=== PATIENT | male | born 1960 | race Caucasian/White ===

== ENCOUNTER → 2017-06-10 11:17 | Outpatient (CLI) | payer OTHER, SELFPAY ==
[2017-06-10 12:43] LABS: Absolute Lymphocyte Count 2.11 X10^3/ul (0.83-4.51); Absolute Neutrophil Count 5.2 X10^3/uL (2.0-7.7); Basophil# 0.04 X10^3/uL; Basophil% 0.5 % (0-1); Eosinophil# 0.17 X10^3/uL; Hematocrit 41.1 % (40-54); Hemoglobin 13.4 g/dl (13.0-16.5); Lymphocyte # 2.11 X10^3/ul (4.0); Lymphocyte % 25.1 % (19-41); Mean Corp Hgb Conc 32.6 g/gl (32-36); Mean Corpuscular Hgb 30.3 pg (27.0-32.0); Mean Platelet Vol. 9.9 fl (6.2-12.0); Monocyte# 0.79 X10^3/uL; Monocyte% 9.4 % (0-10); Neutrophil # 5.22 X10^3/uL (2.7-7.7); Neutrophil % 61.9 % (47-70); Platelet Count 284 K/mm3 (150-450); RBC Distribution Width CV 13.7 % (11.6-14.6); Red Blood Count 4.42 M/mm3 (4.6-6.2); White Blood Count 8.4 K/mm3 (4.4-11.0)
[2017-06-10 12:45] LABS: POSITIVE COUNT NO; POSITIVE DIFFERENTIAL NO; POSITIVE MORPHOLOGY NO
[2017-06-10 13:34] LABS: AST(SGOT) 21 U/L (15-37); Alanine Aminotransfer ALT/SGPT 47 U/L (16-61); Albumin, Serum 3.8 g/dL (3.2-5.0); Alkaline Phosphatase 138 U/L (45-117); Globulin 3.7 g/dL (2.2-4.2); Protein, Total 7.5 g/dL (6.4-8.2)
[2017-06-13 09:55] LABS: QNTFERON TB Ag Minus Nil Value 0.01 IU/mL (.); QNTFERON TB Ag Value 0.03 IU/mL (.); QNTFERON TB Mitogen Value > 10.00 IU/mL (.); QNTFERON TB Nil Value 0.02 IU/mL (.)
[2017-06-13 15:49] LABS: QNTIFERON TB Gold Negative (Negative)
== END ==
PROVIDERS: Family Provider Internal Medicine; PCP Internal Medicine; Visit Provider Dermatology
DX: Z79.899 Other long term (current) drug therapy (principal); L40.3 Pustulosis palmaris et plantaris
CPT/HCPCS: 36415; 80076; 85025; 86480

== ENCOUNTER → 2017-06-22 12:39 | Outpatient (CLI) | payer OTHER, SELFPAY ==
--- NOTE | 2017-06-22 12:42 | RAD_ITS ---
STUDY: X-RAY - RIGHT KNEE REASON FOR EXAM: Male, 57 years old. Postop TECHNIQUE: 4 view(s) of the knee. Weight-bearing COMPARISON: 05/12/2017 FINDINGS: Normal visualized distal femur. Normal visualized proximal tibia and fibula. Normal proximal tibiofibular articulation. Status post total knee arthroplasty in anatomic alignment with maintained hardware, normal bony interface. Stable spurring along the femoral and tibial articular surface. Small effusion. Mild anterior knee edema. Resorption of prior subcutaneous air. RAD/Knee 4 or More Views IMPRESSION: Total knee arthroplasty in anatomic alignment. Mild effusion. Electronically Signed: Gertrude Christy MD at 2:29 EST , Service support ,
== END ==
PROVIDERS: Family Provider Internal Medicine; PCP Internal Medicine; Visit Provider Orthopaedic Surgery
DX: M25.561 Pain in right knee (principal); Z96.651 Presence of right artificial knee joint
CPT/HCPCS: 73564

== ENCOUNTER → 2017-07-08 11:30 | Outpatient (CLI) | payer OTHER, SELFPAY ==
[2017-07-08 14:22] LABS: T4 Free Direct 1.23 ng/dL (0.76-1.46); Thyroid Stim Hormone (TSH) 0.32 uIU/mL (0.358-3.74)
== END ==
PROVIDERS: Family Provider Internal Medicine; PCP Internal Medicine; Visit Provider Nurse Practitioner Family
DX: E03.9 Hypothyroidism, unspecified (principal)
CPT/HCPCS: 36415; 84439; 84443

== ENCOUNTER → 2017-07-13 13:25 | Outpatient (CLI) | payer OTHER, SELFPAY ==
[2017-07-13 15:52] LABS: T4 Free Direct 1.34 ng/dL (0.76-1.46); Thyroid Stim Hormone (TSH) 0.41 uIU/mL (0.358-3.74)
== END ==
PROVIDERS: Family Provider Internal Medicine; PCP Internal Medicine; Visit Provider Nurse Practitioner Family
DX: E03.9 Hypothyroidism, unspecified (principal)
CPT/HCPCS: 36415; 84439; 84443

== ENCOUNTER 2017-07-24 14:30 | Outpatient (RCR) | payer OTHER, SELFPAY ==
--- NOTE | 2017-05-22 12:26 | HP.PTEVAL_ITS ---
Patient's Visit Information ANGY CARSON is a 57 year old M referred to Physical Therapy by Link Johnson DO DR.MTGARRICK with a diagnosis of S/P RTKR 05/12/17. Date of Evaluation: 05/22/17 Physical Therapist: Cuca Urrutia - Visit Plan Frequency: 2-3x /Week Duration: 4-6 Weeks Plan: *PSORIATIC ARTHRITIS*. REHAB FOR RIGHT TKR 05/12/[address] JOHNSON. *NO RESISTED LEG EXTENSION MACHINES AT ANY POINT IN REHAB. ?Soft tissue treatments and gentle mobilization to the posterior musculature, patella, and incisions to avoid flexion or patella contracture. ALSO FOCUS ON EDEMA CONTROL. - Subjective Subjective: DX: S/P RIGHT TKR 05/12/17. 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 Disability: NO. Present symptoms: THE WHOLE KNEE. RIGHT PROXIMAL LATERAL THIGH. Present since: YEARS. Pain Scale: WORST 8/10, LEAST 1/10. Currently: 08/04. Commenced as a result of: 1979 FOOTBALL INJURY. 1980 BASKETBALL INJURY. REPEAT INJURIES AND ARTHRITIS SINCE. Symptoms at onset: RIGHT KNEE. Worse: SITTING AND BEING STILL MAKES IT STIFF. INCREASED PAIN IN THE MORNINGS. Better : FEELS BETTER TO MOVE. Disturbed sleep: YES. Previous history/Previous treatment: AT LEAST TWO SURGERIES AND FLUID DRAINED PRIOR TO TKR. Gait: INDEP GAIT WITH FWW SHORT DISTANCES - GETS OUT OF BREATH. Accidents: NO. Unexplained weight loss: NO. Imaging: PRIOR TO SURGERY. PMH: HYPOTHYROIDISM , CELIAC DZ, PSORIATIC ARTHRITIS. OTHER: QUESTIONED PATIENT ABOUT SOB. STATES HE STARTED NOTICING IT IN THE HOSPITAL AND IT HAS NEVER BEEN THIS BAD BEFORE. THINKS OVER TIME IT MIGHT BE GETTING A LITTLE BETTER. STATES IT ISN'T ENOUGH TO CONCERN HIM. STATES HE DOESN'T KNOW IF DOCTOR IS AWARE OF SOB OR NOT. REPORTS THAT HE HAD A TOUGH TIME AT THE HOSPITAL. IN THE HOSPITAL/REHAB ABOUT 5 DAYS. HAD TO DRAW 50CC'S OF BLOOD OUT. STATES HE WASN'T REALLY ABLE TO TOLERATE REHAB. WAS GIVEN HEP SHEET AND CPM. STATES HE IS TRYING TO DO HEEL SLIDES AND USING ELASTIC BAND TO HELP BUT THAT IS ABOUT IT. - Objective THIS PATIENT AMBULATES INDEP'LY INTO PT LIMPING ON THE RIGHT LE WITH A BENT KNEE. HE IS ABLE TO AMBULATE >300 FEET X 2. NO OBVIOUS SOB BUT PATIENT REPORTS INCREASED SOB OVER-ALL SINCE SURGERY. INDEP TRANSFERS SIT TO STAND AND REVERSE, SIT TO SUPINE AND REVERSE WITHOUT UE ASSISTING LEG. INCISION LOOKS TO BE HEALING WELL WITHOUT ANY SIGNS OF OPEN AREAS/DRAINAGE OR EXTREMEM INCREASED TENDERNESS. THERE IS A LITTLE REDNESS AROUND THE INCISION AND INTO THE LEG. STRENGTH: LLE IS WFL, RIGHT LE HIP FLEX 3+/5, KNEE EXT 2/5, KNEE FLEX 2+/5, ANKLE DORSIFLEX 5/5. RIGHT KNEE CIRCUMFERENCE MEASUREMENTS: ANKLE - 12, DISTAL INCISION 16.25, MID KNEE 19, PROX INCISION 19.75. RIGHT KNEE ROM IN SUPINE WITH A HEEL SLIDE = -40 DEG EXT TO 80 DEG FLEX. PATIENT HAS DECREASED HEP KNOWLEDGE. HE HAS NOT BEEN DOING QUAD SETS. SEE TREATMENT BELOW. PATIENT IS PLEASANT AND COOPERATIVE TO WORK WITH. - Goals Goal 1:: DECREASE C/O RIGHT KNEE PAIN Goal Time Frame: 4-6 Weeks Goal 2:: IMPROVE STANDING, WALKING, ADL AND WORK FUNCTION Goal Time Frame: 4-6 Weeks Goal 3:: INCREASE FUNCTIONAL ROM OF RIGHT LE Goal Time Frame: 4-6 Weeks Goal 4:: INCREASE FUNCTIONAL STRENGTH OF RIGHT LE Goal Time Frame: 4-6 Weeks Goal 5:: INDEP AND SAFE GAIT ON ALL SURFACES WITH LEAST ASSISTIVE DEVICE. Goal Time Frame: 4-6 Weeks Goal 6:: INDEP HEP Goal Time Frame: 4-6 Weeks - Rehabilitation Potential Rehabilitation Potential: Good - Anticipated Interventions Patient/Client Instruction: Educate patient on: Condition, Plan of Care, Risk Factors, Benefits of Fitness Program For the Purpose of:: To improve self management Therapeutic Exercise to Include: Strength training, Flexibilty training, Gait and locomotor training, Passive ROM, Active ROM Comment: *PSORIATIC ARTHRITIS* For the Purpose of:: To decrease pain, To increase ROM, To improve muscle performance and motor function, To improve gait and locomotor functions Cryotherapy (ice pack, ice massage): Yes For the Purpose of:: To decrease pain, To decrease swelling/inflammation Thank you for the opportunity to evaluate your patient. For Medicare and Medicare HMO plans, please review the plan of care and approve it. It will need to be FAXED BACK to us at [phone] for Medicare purposes. Please let me know if there are questions or concerns regarding this plan of care. Physician Signature: Date:
--- NOTE | 2017-06-17 18:14 | HP.PTREVAL_ITS ---
Link Johnson DO, It has been my pleasure to treat ANGY CARSON over the last 10 visits for S/P RTKR 05/12/17. Please see the progress note below for an update on the physical therapy plan of care! Subjective: PATIENT REPORTS HE REALLY ISN'T HAVING PAIN JUST STIFFNESS. PATIENT REPORTS HE FEELS HE IS DOING REALLY GOOD. HE STATES HE REALLY DOESN'T FEEL LIKE HE NEEDS MORE PT BECAUSE OF HOW MUCH WE HAVE TAUGHT HIM. DOING HOME EX'S AND GOING TO THE ALT WHEN HE DOESN'T HAVE PT. Objective/Function: RIGHT KNEE ROM IN SUPINE WITH A HEEL SLIDE = -19 DEG EXT TO 100 DEG FLEX. RECOMMEND CONTINUED PT. Plan Plan: CONT PER POC BUT DECREASING TO 2 X'S A WEEK FOR 4 MORE WEEKS TO PROGRESS RIGHT LE ROM AND STRENGTHEING. PATIENT AGREEABLE WITH RECOMMENDATION. Goals Goal 1:: DECREASE C/O RIGHT KNEE PAIN Goal Time Frame: 4-6 Weeks Goal 2:: IMPROVE STANDING, WALKING, ADL AND WORK FUNCTION Goal Time Frame: 4-6 Weeks Goal Progress: Goal Met Goal 3:: INCREASE FUNCTIONAL ROM OF RIGHT LE Goal Time Frame: 4-6 Weeks Goal 4:: INCREASE FUNCTIONAL STRENGTH OF RIGHT LE Goal Time Frame: 4-6 Weeks Goal 5:: INDEP AND SAFE GAIT ON ALL SURFACES WITH LEAST ASSISTIVE DEVICE. Goal Time Frame: 4-6 Weeks Goal 6:: INDEP HEP Goal Time Frame: 4-6 Weeks Anticipated Interventions Patient/Client Instruction: Educate patient on: Condition, Plan of Care, Risk Factors, Benefits of Fitness Program For the Purpose of:: To improve self management Therapeutic Exercise to Include: Strength training, Flexibilty training, Gait and locomotor training, Passive ROM, Active ROM Comment: *PSORIATIC ARTHRITIS* For the Purpose of:: To decrease pain, To increase ROM, To improve muscle performance and motor function, To improve gait and locomotor functions Cryotherapy (ice pack, ice massage): Yes Vasopneumatic device: Yes For the Purpose of:: To decrease pain, To decrease swelling/inflammation Please do not hesitate to contact me at [phone] by phone or Fax: if you have questions or concerns regarding this new plan of care! Sincerely, Cuca Urrutia
--- NOTE | 2017-07-24 17:03 | HP.PTDCSUM_ITS ---
HP - PT D/C Summary It has been my pleasure to treat ANGY CARSON under orders from Link Johnson DO, MTGARRICK for the diagnosis of S/P RTKR 05/12/17 for a total of 18 visit (s). Discharge Date: Please see the following information for a summary of their discharge status. - Subjective Subjective: PATIENT REPORTS HE DOESN'T DO HIS EX'S MUCH HE SHOULD. STATES HE HAS BEEN BACK TO WORK ABOUT 3 WEEKS AND HAS BACKED OFF SOME OF THE EX' S AT THE [facility] TOO. STATES HE CAN CONTINUE ON HIS OWN WITH WHAT WE HAVE TAUGHT HIM BUT HE IS GLAD HE CONTNUED WHEN WE RECOMMENDED IT THE LAST TIME. - Pain right knee Pain Intensity (Out of 10): 0 - Overall Improvement % Improvement: 90 - Objective Objective/Function: -8 DEG RIGHT KNEE EXT TO 108 DEG FLEX RIGHT KNEE IN SUPINE WITH A HEEL SLIDE. - Goals Goal 1:: DECREASE C/O RIGHT KNEE PAIN Goal Progress: Goal Met Goal 2:: IMPROVE STANDING, WALKING, ADL AND WORK FUNCTION Goal Progress: Goal Met Goal 3:: INCREASE FUNCTIONAL ROM OF RIGHT LE Goal Progress: Goal Met Goal 4:: INCREASE FUNCTIONAL STRENGTH OF RIGHT LE Goal Progress: Goal Met Goal 5:: INDEP AND SAFE GAIT ON ALL SURFACES WITH LEAST ASSISTIVE DEVICE. Goal Progress: Goal Met Goal 6:: INDEP HEP Goal Progress: Goal Met - Plan Plan: D/C TO INDEP EX AT PATIENTS REQUEST. RECOMMEND CONTINUED PT IF PATIENT HAS NOT CONTINUED TO PROGRESS WITH ROM BY THE TIME HE RECHECKS WITH DR. JOHNSON IN A FEW WEEKS. - D/C Information If there are questions or concerns regarding this patient's physical therapy, please feel free to call me at [phone]. Thank you for the referral of this patient. Sincerely, Cuca Urrutia
== END 2017-07-24 19:00 | disposition home or self-care (01) ==
LOC: PT 14:30
PROVIDERS: Family Provider Internal Medicine; PCP Internal Medicine; Visit Provider Orthopaedic Surgery
DX: Z98.890 Other specified postprocedural states (principal)
CPT/HCPCS: 97110; 97162; 97530

== ENCOUNTER 2017-08-18 07:29 | Day surgery (SDC) | payer OTHER, SELFPAY ==
--- NOTE | 2017-08-18 07:01 | PCM.DC.ORTHO ---
Discharge Activity: Return to Normal Activity, May not drive while taking narcotic pain medications., May Shower May resume sexual activity in: No Restrictions Ice area for (Minutes): 20 Weight Bearing Status: Weight bearing as tolerated Call your doctor if your incision/area has: Continuous Slow Oozing, Sudden Increased Bleeding, Increased Pain/ Swelling, Increased Redness, Foul Smelling Discharge Call your doctor if you observe: Fever of 101 or Higher, Coldness, Increased Pain, Numbness or Tingling, Change in Color, Calf discomfort Cleanse incision/area with: Soap & Water Allergies/Adverse Reactions: Allergies No Known Allergies Allergy (Verified 08/12/17 14:57) Medications to take at Discharge Levothyroxine [Synthroid] 200 mcg PO DAILY 04/21/17 Escitalopram Oxalate [Lexapro] 10 mg PO DAILY 05/05/17 Fluticasone 0.05% [Flonase Nasal [place]] 1 spray NASAL DAILY 05/05/17 ixekizumab 80 mg/mL subcutaneous auto-injector 80 mg SC Q4W 07/07/17 avanafil 100 mg tablet 100 mg PO QDAY PRN #7 tab 07/09/17 Docusate Sodium [Colace] 100 mg PO BID PRN PRN #10 cap 08/18/17 Hydrocodone Bitart/Apap 5-325 [[place] 5/325] 1 - 2 tablet PO Q6H PRN PRN #30 tablet 08/18/17 MethylPREDNISolone DosePak [Medrol DosePak] 4 mg PO UD #1 box 08/18/17 proMETHazine tablet [Phenergan] 25 mg PO Q4H PRN PRN #10 tab 08/18/17 The following prescriptions were given: proMETHazine tablet [Phenergan] 25 mg PO Q4H PRN PRN #10 tab PRN Reason: Nausea Hydrocodone Bitart/Apap 5-325 [[place] 5/325] 1 - 2 tablet PO Q6H PRN PRN #30 tablet PRN Reason: Pain Docusate Sodium [Colace] 100 mg PO BID PRN PRN #10 cap PRN Reason: Constipation MethylPREDNISolone DosePak [Medrol DosePak] 4 mg PO UD #1 box Primary Care Physician: Neo Tarango MD [Primary Care Provider] - Please Follow Up With: Link Johnson DO When: call [facility] for appt for 2 weeks Proposed Discharge Date: 08/18/17
[2017-08-18 07:52] VITALS: BP 123/74; PULSE 77; RESP 16; TEMP 37.3; O2SAT 100; BMI 33.4
[2017-08-18] MEDS: oxyCODONE HCl Cr 10 MG Tablet PO (07:59)
--- NOTE | 2017-08-18 09:16 | OP.PN_ITS ---
Immediate Post-Op Note Date of Procedure: 08/18/17 Primary Surgeon/Physician: Link Johnson, hand tennis ball coverer: NONE Pre-Operative Diagnosis: Right knee stiffness status post total knee arthroplasty Post-Operative Diagnosis: Same as above Surgery/Procedure Performed:: Right knee manipulation under anesthesia Description of Surgical Findings:: See dictation Estimated Blood Loss: 0 Specimen's removed: None Drains: None ASA Class: ASA2 Mod Systematic Disease - Admit VTE Documentation VTE Present on Admission: No VTE Mechan Device Prophylaxis: SCD's, Knee High ARCHIE Hose VTE Pharm Prophylaxis ordered?: No Reason prophylaxis not ordered:: Treatment Not Indicated
--- NOTE | 2017-08-18 09:24 | PCM.OPRPT ---
Report of Operation Date of Procedure: 08/18/17 Pre-Operative Diagnosis: Right knee stiffness status post total knee arthroplasty Post-Operative Diagnosis: Same as above Surgery/Procedure Performed:: Right knee manipulation under anesthesia Description of Surgical Findings:: 57-year-old male roughly 3 months status post right total knee arthroplasty. Patient was having some difficulty with gaining range of motion it was my recommendation the patient undergo a manipulation under anesthesia. Patient agreed he was counseled and consented for the aforementioned procedure. He is met in the holding area where the right lower extremity was marked and identified by the orthopedic surgeon. Patient was taken to the operating room in satisfactory condition with somewhat to place to identify patient operative procedure and limb. No preoperative antibiotics due to close procedure. He underwent a successful intubation by anesthesia. Initial range of motion on table was 5? short of terminal extension to roughly 90-95?. At that point time a gentle manipulation under anesthesia was undertaken initially in extension with some small adhesion releases moving into full extension and then keeping a short lever arm we gently bent the knee up to roughly 125? of knee flexion perhaps even 130 with obvious release of adhesions. His patella moved through good range of motion did not appear to be overly contracted anteriorly we did try to mobilize at both medial laterally and superior inferior with appropriate tilt. Patient remained ligamentously stable did not feel any obvious deformities concerning for fracture. At that point time the patient was extubated and returned to recovery room. Patient will start outpatient physical therapy again work on aggressive range of motion. He will follow-up with me in 2 weeks. Any major issues please contact me. I was scrubbed and available time during our procedure. We had no drains or complications and no implants purification director: NONE Type of Anesthesia:: General Specimen's removed: None Drains: None Estimated Blood Loss (mL): 0 - Complications None - Admit VTE Documentation VTE Present on Admission: No VTE Mechan Device Prophylaxis: SCD's VTE Pharm Prophylaxis ordered?: No Reason prophylaxis not ordered:: Treatment Not Indicated
[2017-08-18 09:30] VITALS: BP 123/74; BP 125/87; PULSE 69; RESP 18; TEMP 36.3; O2SAT 92
[2017-08-18 09:45] VITALS: BP 112/86; BP 123/74; PULSE 65; RESP 18; O2SAT 92
[2017-08-18 10:00] VITALS: BP 103/59; BP 123/74; PULSE 63; RESP 18; O2SAT 97
[2017-08-18 10:13] VITALS: BP 122/81; BP 123/74; PULSE 59; RESP 18; TEMP 36.3; O2SAT 94
[2017-08-18 10:52] VITALS: BP 123/74
== END 2017-08-18 10:55 | disposition home or self-care (01) ==
LOC: SDC 07:31 → AC 07:31
PROVIDERS: Family Provider Internal Medicine; PCP Internal Medicine; Visit Provider Orthopaedic Surgery
PROC: (CPT 27570; principal; 2017-08-18 09:30)
DX: M25.661 Stiffness of right knee, not elsewhere classified (principal); Z96.651 Presence of right artificial knee joint; R00.0 Tachycardia, unspecified; F32.9 Major depressive disorder, single episode, unspecified; E06.9 Thyroiditis, unspecified; L40.59 Other psoriatic arthropathy; J30.2 Other seasonal allergic rhinitis; K90.0 Celiac disease; Z79.899 Other long term (current) drug therapy; Z87.891 Personal history of nicotine dependence
CPT/HCPCS: 01380; 27570; J7120; J2405

== ENCOUNTER → 2018-01-06 12:00 | Outpatient (CLI) | payer OTHER, SELFPAY ==
[2018-01-06 15:03] LABS: T4 Free Direct 1.02 ng/dL (0.76-1.46); Thyroid Stim Hormone (TSH) 0.61 uIU/mL (0.358-3.74)
== END ==
PROVIDERS: Family Provider Internal Medicine; PCP Internal Medicine; Visit Provider Nurse Practitioner Family
DX: E03.9 Hypothyroidism, unspecified (principal)
CPT/HCPCS: 36415; 84439; 84443

== ENCOUNTER → 2018-03-25 12:43 | Outpatient (CLI) | payer OTHER, SELFPAY ==
[2018-03-24 14:00] VITALS: BMI 34.5
[2018-03-25 14:15] LABS: Anion Gap 7 (5-15); BUN 16 mg/dL (7-18); BUN/Creat Ratio 19.3 RATIO (10-20); Calcium,Total 8.5 mg/dL (8.5-10.1); Chloride 106 mmol/L (98-107); Creatinine, Serum 0.83 mg/dL (0.70-1.30); EST Glomerular Filtration Rate 102 mL/min (>60); Est Glom Filt Rate - Afr Amer 123 mL/min (>60); Glucose 89 mg/dL (74-106); Magnesium 2.1 mg/dL (1.6-2.6); Potassium 4.2 mmol/L (3.5-5.1); Sodium Level 139 mmol/L (136-145)
[2018-03-25 14:25] LABS: Cholesterol 180 mg/dL (200); High Density Lipoprotein 48 mg/dL; Triglycerides 203 mg/dL; Very Low Density Lipoprotein 41 mg/dL (5-40)
--- OUTSIDE RECORDS SUMMARY | 2018-05-20 16:09 | XMS RPT_ITS ---
:1960 Author Organization OHIP Support Name Relationship Address Phone ALLIWILD JARAMILLOYN Unavailable [address] + [place] [address] SMIDA Unavailable [address] + [address] [place] [address] ERICK CARSON Unavailable [address] + [place] [address] SMIDA Unavailable [address] + [address] [place] [address] ERICK CARSON Unavailable [address] + [place] [address] SMIDA Unavailable [address] + [address] [place] [address] SMIDA Unavailable [address] + [address] [place] [address] SMIDA Unavailable [address] + [address] [place] [address] ERICK CARSON Unavailable [address] + [place] [address] SMIDA Unavailable [address] + [address] [place] [address] ERICK CARSON Unavailable [address] + [place] [address] SMIDA Unavailable [address] + [address] [place] [address] ERICK CARSON Unavailable [address] + [place] [address] SMIDA Unavailable [address] + [address] [place] [address] ALLI, ERICK Unavailable [address] + [place] [address] SMIDA Unavailable [address] + [address] [place] [address] ALLI, ERICK Unavailable [address] + [place] [address] SMIDA Unavailable [address] + [address] [place] [address] ALLI, ERICK Unavailable [address] + [place] [address] SMIDA Unavailable [address] + [address] [place] [address] ALLI, ERICK Unavailable [address] + [place] [address] SMIDA Unavailable [address] + [address] [place] [address] ALLI, ERICK Unavailable [address] + [place] [address] SMIDA Unavailable [address] + [address] [place] [address] ALLI, ERICK Unavailable [address] + [place] [address] SMIDA Unavailable [address] + [address] [place] [address] ALLI, ERICK Unavailable [address] + [place] [address] SMIDA Unavailable [address] + [address] [place] [address] ALLI, ERICK Unavailable [address] + [place] [address] SMIDA Unavailable [address] + [address] [place] [address] ALLI, ERICK Unavailable [address] + [place] [address] SMIDA Unavailable [address] + [address] [place] [address] ALLI, ERICK Unavailable [address] + [place] [address] SMIDA Unavailable [address] + [address] [place] [address] ALLI, ERICK Unavailable [address] + [place] [address] SMIDA Unavailable [address] + [address] [place] [address] ALLI, ERICK Unavailable [address] + [place] [address] SMIDA Unavailable [address] + [address] [place] [address] ALLI, ERICK Unavailable [address] + [place] [address] SMIDA Unavailable [address] + [address] [place] [address] ALLI, ERICK Unavailable [address] + [place] [address] SMIDA Unavailable [address] + [address] [place] [address] ALLI, ERICK Unavailable [address] + [place] [address] SMIDA Unavailable [address] + [address] [place] [address] ALLI, ERICK Unavailable [address] + [place] [address] SMIDA Unavailable [address] + [address] [place] [address] ALLI, ERICK Unavailable [address] + [place] [address] SMIDA Unavailable [address] + [address] [place] [address] ALLI, ERICK Unavailable [address] + [place] [address] SMIDA Unavailable [address] + [address] [place] [address] ALLI, ERICK Unavailable [address] + [place] [address] SMIDA Unavailable [address] + [address] [place] [address] ALLI, ERICK Unavailable [address] + [place] [address] SMIDA Unavailable [address] + [address] [place] [address] ALLI, ERICK Unavailable [address] + [place] [address] SMIDA Unavailable [address] + [address] [place] [address] ALLI, ERICK Unavailable [address] + [place] [address] SMIDA Unavailable [address] + [address] [place] [address] ALLI, ERICK Unavailable [address] + [place] [address] SMIDA Unavailable [address] + [address] [place] [address] ALLI, ERICK Unavailable [address] + [place] [address] SMIDA Unavailable [address] + [address] [place] [address] ALLI, ERICK Unavailable [address] + [place] [address] SMIDA Unavailable [address] + [address] [place] [address] ALLI, ERICK Unavailable [address] + [place] [address] SMIDA Unavailable [address] + [address] [place] [address] ALLI, ERICK Unavailable [address] + [place] [address] SMIDA Unavailable [address] + [address] [place] [address] ALLI, ERICK Unavailable [address] + [place] [address] SMIDA Unavailable [address] + [address] [place] [address] Care Team Providers Name Role Phone Oleghe, Efewongbe Attending Unavailable Olee, Efewongbe Referring Unavailable SantosPresleyDublin Attending Unavailable Santos, [place] Referring Unavailable Olee, Efewongbe Primary Care Unavailable Olee, Efewongbe Primary Care Unavailable Rebecca Oconnor Attending Unavailable Link Harrison Attending Unavailable Olee, Efewongbe Referring Unavailable Oleghe, Efewongbe Primary Care Unavailable Link Harrison Attending Unavailable Olee, Efewongbe Primary Care Unavailable Alex, Link Admitting Unavailable Link Harrison Referring Unavailable Olee, Efewongbe Primary Care Unavailable Imamura, Yoichi Consulting Unavailable Sementi, Melissa Attending Unavailable Angel, Cruz Consulting Unavailable Alex, Link Admitting Unavailable Link Harrison Attending Unavailable Olee, Efewongbe Primary Care Unavailable Link Harrison Consulting Unavailable Alex, Link Admitting Unavailable Link Harrison Attending Unavailable Olee, Efewongbe Primary Care Unavailable Link Harrison Consulting Unavailable Alex, Link Admitting Unavailable Link Harrison Attending Unavailable Olee, Efongbe Primary Care Unavailable Link Harrison Consulting Unavailable Alex, Link Admitting Unavailable Olee, Efewongbe Primary Care Unavailable Imamura, Yoichi Consulting Unavailable Paintsil, [place] Attending Unavailable Link Harrison Consulting Unavailable Alex, Link Admitting Unavailable Link Harrison Attending Unavailable Olee, Efewongbe Primary Care Unavailable Imamura, Yoichi Consulting Unavailable Angel, Cruz Consulting Unavailable Sementi, Melissa Consulting Unavailable Alex, Link Admitting Unavailable Sementi, Melissa Attending Unavailable Olee, Efewongbe Primary Care Unavailable Imamura, Yoichi Consulting Unavailable Angel, Cruz Consulting Unavailable Sementi, Melissa Consulting Unavailable Alex, Link Admitting Unavailable Link Harrison Attending Unavailable Olee, Efewongbe Primary Care Unavailable Imamura, Yoichi Consulting Unavailable Angel, Cruz Consulting Unavailable Sementi, Melissa Consulting Unavailable Alex, Link Admitting Unavailable Sementi, Melissa Attending Unavailable Olee, Efewongbe Primary Care Unavailable Imamura, Yoichi Consulting Unavailable Angel, Cruz Consulting Unavailable Sementi, Melissa Consulting Unavailable Alex, Link Admitting Unavailable Link Harrison Attending Unavailable Olee, Efewongbe Primary Care Unavailable Imamura, Yoichi Consulting Unavailable Angel, Cruz Consulting Unavailable Sementi, Melissa Consulting Unavailable Link Harrison Attending Unavailable Olee, Efewongbe Primary Care Unavailable Link Harrison Referring Unavailable Link Harrison Attending Unavailable Oleghe, Efewongbe Referring Unavailable Oleghe, Efewongbe Primary Care Unavailable Aniket Mclaughlin Attending Unavailable Link Harrison Referring Unavailable Francisco Hughes Attending Unavailable Oleghe, Efewongbe Primary Care Unavailable Link Harrison Attending Unavailable Oleghe, Efewongbe Referring Unavailable Oleghe, Efewongbe Primary Care Unavailable Link Harrison Attending Unavailable Link Harrison Referring Unavailable Oleghe, Efewongbe Primary Care Unavailable Jaya Bowman Attending Unavailable Melissa Ordonez Referring Unavailable Denny Trinidad BUTADIENE CONVERTER UTILITY OPERATOR-C Attending Unavailable Oleghe, Efewongbe Referring Unavailable Oleghe, Efewongbe Primary Care Unavailable Denny Trinidad BUTADIENE CONVERTER UTILITY OPERATOR-C Attending Unavailable Oleghe, Efewongbe Primary Care Unavailable Denny Trinidad BUTADIENE CONVERTER UTILITY OPERATOR-Riki Attending Unavailable Denny Trinidad BUTADIENE CONVERTER UTILITY OPERATOR-C Referring Unavailable Oleghe, Efewongbe Primary Care Unavailable Link Harrison Attending Unavailable Oleghe, Efewongbe Referring Unavailable Oleghe, Efewongbe Primary Care Unavailable Link Harrison Attending Unavailable Link Harrison Referring Unavailable Oleghe, Efewongbe Primary Care Unavailable Link Harrison Attending Unavailable Link Harrison Referring Unavailable Oleghe, Efewongbe Primary Care Unavailable Link Harrison Consulting Unavailable Link Harrison Attending Unavailable Oleghe, Efewongbe Referring Unavailable Link Harrison Attending Unavailable Oleghe, Efewongbe Referring Unavailable Oleghe, Efewongbe Primary Care Unavailable Link Harrison Attending Unavailable Oleghe, Efewongbe Referring Unavailable Oleghe, Efewongbe Primary Care Unavailable Denny Trinidad BUTADIENE CONVERTER UTILITY OPERATOR-C Attending Unavailable Denny Trinidad BUTADIENE CONVERTER UTILITY OPERATOR-C Referring Unavailable Oleghe, Efewongbe Primary Care Unavailable Oleghe, Efewongbe Attending Unavailable Oleghe, Efewongbe Referring Unavailable Oleghe, Efewongbe Primary Care Unavailable Colleen Olvera Attending Unavailable Robert Graham Attending Unavailable Oleghe, Efewongbe Referring Unavailable Oleghe, Efewongbe Attending Unavailable Oleghe, Efewongbe Referring Unavailable Oleghe, Efewongbe Primary Care Unavailable PROBLEMS PROBLEMS DATE TYPE CONDITION / CODE ATTENDING STATUS SOURCE 03/25/2018 Unknown E03.9 - Oleghe, Active [place] Hypothyroidism, Efewongbe Community unspecified / Hospital E03.9(ICD-10) Repository 03/24/2018 Unknown I25.119 - Santos, Robert Active [facility] Atherosclerotic heart [facility] coronary artery with Repository unspecified angina pectoris / I25.119(ICD-10) 03/24/2018 Unknown I47.1 - Santos, Robert Active [place] Supraventricular Community tachycardia / Hospital I47.1(ICD-10) Repository 03/24/2018 Unknown I49.3 - Ventricular Santos, [place] Active [place] premature Community depolarization / Hospital I49.3(ICD-10) Repository 03/24/2018 Unknown R00.2 - Palpitations / Santos, Robert Active [place] R00.2(ICD-10) Community Hospital Repository 03/24/2018 Unknown R06.00 - Dyspnea, Santos, [place] Active [facility] unspecified / Community R06.00(ICD-10) Hospital Repository 03/24/2018 Unknown R07.9 - Chest pain, Santos, Robert Active [place] unspecified / Community R07.9(ICD-10) Hospital Repository 08/18/2017 Unknown M25.661 - Stiffness of Link [facility] Active [place] right knee, not Community elsewhere classified / Hospital M25.661(ICD-10) Repository 07/29/2017 Unknown Z98.890 - Other iLnk [place] Active [place] specified Community postprocedural states Hospital / Z98.890(ICD-10) Repository 06/22/2017 Unknown M25.561 - Pain in Link [facility] Active [place] right knee / Community M25.561(ICD-10) Hospital Repository 06/04/2017 Unknown M17.11 - Unilateral Paintsil, [place] Active [facility] primary Community osteoarthritis, right Hospital knee / M17.11(ICD-10) Repository 06/25/2017 Unknown M79.89 - Other CebuJaya smith Active [place] specified soft tissue Community disorders / Hospital M79.89(ICD-10) Repository 04/23/2017 Unknown M25.461 - Effusion, Link [facility] Active [place] right knee / Community M25.461(ICD-10) Hospital Repository 04/23/2017 Unknown M25.462 - Effusion, Link Harrison Active [place] left knee / Community M25.462(ICD-10) Hospital Repository PROCEDURES PROCEDURES No Procedure Records FoundRESULTS RESULTS STRESS REPORT Observed: 04/12/2018 Status: F Source: [place] 5:40 PM [facility] RE[facility]ITORY [facility] Cardiovascular Services [address] [place] [address] MR#: [id number] Acct: [id number] Name: ANGY CARSON Rep #: [id number] : 1960 58 From: Robert Graham MD Primary Care: Neo Tarango MD Status: REG CLI Ordering Dr: Reena: Malcom Lyn Stress Test Report Exercise myocardial perfusion stress test. 58-year-old man with a history of chest pain. Medications Flonase levothyroxine. Stress protocol: Resting EKG demonstrates normal sinus rhythm with a rate of 68 bpm normal intervals are noted resting blood pressure 116/70 mmHg. The patient exercised according to regular Surjit protocol for total duration of 7 minutes completing 1 minute into stage III of the Surjit protocol. The maximum heart rate attained was 171 bpm which was 104% of maximum predicted heart rate the maximum workload was 8.5 metabolic equivalents. The patient maintained sinus rhythm throughout the recording with frequent premature ventricular complexes some in the pattern of quadrigeminy. At rest there were no EKG changes noted and at peak exercise upsloping ST changes only were noted we did not meet the criteria for ischemia. During recovery premature ventricular complexes were noted some in couplets. The resting blood pressure 116/70 with a peak blood pressure 180/80 mmHg. Myocardial perfusion protocol. 14.9 mCi of technetium 99m sestamibi was injected at rest. The patient exercised according to regular Surjit protocol for total duration of 7 minutes. At peak exercise 44.8 mCi of technetium 99m sestamibi was injected stress images were obtained stress and rest images were reconstructed and compared in the short axis vertical long and horizontal long axis. Gated images were also obtained per Perfusion SPECT analysis: Review of the stress images demonstrate fairly uniform uptake of tracer noted in areas of the myocardium. No areas of reversibility are noted suggest ischemia. No previous infarct is noted. Gated SPECT analysis: The gated ejection fraction is noted to be 59%. Conclusion: Normal exercise myocardial fusion stress test at a moderate workload. Frequent unifocal premature ventricular complexes noted. No clinical angina or chest pain noted. Preserved ejection fraction 04/12/18 8780 <Electronically signed by Robert Graham MD> Date Robert Graham MD CC: Robert Graham MD; Neo Tarango MD Date Dictated: 04/12/181736 Date Transcribed: 04/12/181736 Rough Rice Tender: CO Signed ECHO, COMPLETE W/ Observed: 04/12/2018 Status: F Source: [place] CONTRAST 12:16 PM [facility] REPOSITORY [facility] Cardiovascular Services [address] [place] [address] Echo Complete W/ Contrast 04/12/18 0951 MR#: [id number] Acct: [id number] Name: ANGY CARSON Rep #: [id number] : 1960 58 From: Robert Graham MD Attending Dr: Robert Graham MD Status: REG CLI Ordering Dr: Robert Graham MD Date: 04/12/18 Location: [facility] Sex: M C Admitted: Reason For Study: Arrhythmia Procedure This was a 2D Doppler, Color Flow transthoracic echocardiogram. Contrast injection was performed. Exam performed in department. Left Ventricle Normal LV size. Mild concentric left ventricular hypertrophy. The estimated ejection fraction is 50 %. No evidence for diastolic dysfunction. No regional wall motion abnormalities noted. Right Ventricle Normal RV size. Mild global right ventricular systolic dysfunction. Atria The left atrium is mildly enlarged. Normal right atrium. Mitral Valve Normal mitral valve. Tricuspid Valve Normal tricuspid valve. Mild (1+) tricuspid valve insufficiency. Pulmonary artery systolic pressure is 25 mmHg. Aortic Valve Normal aortic valve. Trisinus/trileaflet aortic valve. Pulmonic Valve Normal pulmonic valve. Mild (1+) pulmonic valve insufficiency. Great Vessels Mildly dilated aortic root. The pulmonary artery is normal size. Normal inferior vena cava. Pericardium/Pleural No pericardial effusion. Medication 22 gauge I.V. with prn adaptor inserted into right arm. Diluted definity 3ml given slow IV push to enhance endocardial definition. MMode/2D Measurements AND Calculations LVIDd: 5.3 cm IVSd: 1.3 cm Ao root diam: 4.2 cm LVIDs: 3.7 cm LVPWd: 1.2 cm LA dimension: 3.6 cm RVDd: 3.6 cm FS: 29.9 % LAV(MOD-bp): 79.9 ml LVAd ap4: 37.4 cm2 SV(MOD-sp4): 78.5 ml LAV(MOD-bp) Indexed: 33.8 ml/m2 EDV(MOD-sp4): 132.0 ml LAV(MOD-sp2): 79.4 ml EDV(sp4-el): 134.0 ml LAV(MOD-sp4): 84.6 ml LVAs ap4: 21.1 cm2 ESV(MOD-sp4): 53.5 ml ESV(sp4-el): 53.7 ml EF(MOD-sp4): 59.5 % EF(sp4-el): 59.9 % SV(sp4-el): 80.3 ml LA A4 area: 24.2 cm2 RA A4 area: 20.6 cm2 Time Measurements MV dec time: 0.22 sec Doppler Measurements AND Calculations MV E max ney: 66.0 cm/sec Lat Peak E' Ney: 12.3 cm/sec Med Peak E' Ney: 12.6 cm/sec MV A max ney: 52.4 cm/sec E/E' lat: 5.4 E/E' med: 5.2 MV E/A: 1.3 MV V2 max: 74.5 cm/sec MV P1/2t max ney: 74.5 cm/sec Ao V2 max: 89.3 cm/sec MV max P.2 mmHg MV P1/2t: 105.7 msec Ao max P.2 mmHg MV V2 mean: 40.1 cm/sec MV mean P.75 mmHg MV dec slope: 206.4 cm/sec2 MV V2 VTI: 24.7 cm MVA(P1/2t): 2.1 cm2 LV V1 max: 80.0 cm/sec PA V2 max: 67.3 cm/sec TR max ney: 230.4 cm/sec LV V1 max P.6 mmHg TR max P.2 mmHg Interpretation Summary Normal LV size. Mild concentric left ventricular hypertrophy. The estimated ejection fraction is 50 %. Mildly dilated aortic root. No evidence for diastolic dysfunction. The left atrium is mildly enlarged. Mild (1+) tricuspid valve insufficiency. Compared to prior study, there is no significant change. Ordering Physician: Robert Graham Referring Physician: Neo Tarango Performed By: Cm Morel RCS 04/12/18 1216 Date Robert Graham MD CC: Robert Graham MD; Neo Tarango MD Date Dictated: 04/12/18 0951 Date Transcribed: 04/12/18 1216 Rough Rice Tender: Signed INTERNAL MEDICINE Observed: 04/06/2018 Status: F Source: [place] OFFICE VISIT 4:46 PM [facility] Internal Medicine [address] [place] [address] OFFICE VISIT Date of Service: 04/06/18 MR#: [id number] Acct: [id number] Name: ANGY CAROSN Rep #: [id number] : 1960 Provider: Neo Tarango MD Age/Sex: 58/M Location: [facility] [place] Status: Signed Intake Vital Signs04/06/18 Body Mass Index (BMI) 34.5 04/06/18 Height 6 ft Intake Visit Reasons: 3 MO FU Chief Complaint: follow-up visit Is patient in pain?: No Allergies No Known Allergies Allergy (Verified 03/24/18 14:01) Medications Fluticasone 0.05% [Flonase Nasal [place]] 1 spray NASAL DAILY 05/05/17 [History Confirmed 03/24/18] avanafil 100 mg tablet 100 mg PO QDAY PRN #7 tab 07/09/17 [Rx Confirmed 03/24/18] levothyroxine 200 mcg tablet 200 mcg PO DAILY #90 tab 11/20/17 [Rx Confirmed 03/24/18] escitalopram 10 mg tablet 10 mg PO DAILY #90 tab 03/17/18 [Rx Confirmed 03/24/18] PFSH Medical History PVC (premature ventricular contraction) (Chronic) SVT (supraventricular tachycardia) (Chronic) Anxiety (Chronic) Arthritis (Chronic) Celiac disease (Chronic) Chronic back pain (Chronic) Hypothyroidism (Chronic) Seasonal allergies (Chronic) Thyroid disease (Chronic) Vitamin D deficiency (Chronic) Surgical History History of deviated nasal septum (Resolved) History of knee surgery (Resolved) History of left heart catheterization (Resolved 07/20/09) History of radiofrequency ablation procedure for cardiac arrhythmia (Resolved 08/01/09) History of total right knee replacement (Resolved) s/p mitro valve (Inactive) Social History Smoking Status: Former smoker how long ago did patient quit smokin alcohol intake: current alcohol intake frequency: a few times a month Alcohol type: beer substance use type: does not use what type of physical activity do you participate in: weight training frequency: 3-4 times per week HPI HPI Chief Complaint: follow-up visit Details: ANGY CARSON, is a 58yo M who presents to the office today for follow-up of his chronic medical conditions. He has no acute complaints at this time. Anxiety symptoms stable. Currently on Lexapro which she reports compliance with. Also on 200 mcg of levothyroxine. Her last thyroid function check was within normal. He denies any concerns for over or under correction. He is scheduled for a stress test on Thursday due to intermittent chest pain and irregular heartbeat. ROS Const Constitutional: No weight change, body ache, chills, fatigue, sleep problems, fever(s), change in appetite, snoring, weakness, frequent falls, headache(s) or excessive sweating Eyes Eyes: No change in vision, eye pain, light sensitivity or blurry vision ENT ENT: No headache(s), abnormal hearing, ear pain, tinnitus, nasal congestion, sore throat or neck pain Resp Respiratory: No snoring, cough, shortness of breath or wheezing Cardio Cardiology: No excessive sweating, chest pain with exertion, shortness of breath, dyspnea on exertion, palpitations, orthopnea or lightheadedness Gastro GI: No abdominal pain, change in bowel habits, constipation, diarrhea, vomiting, nausea/dyspepsia or cramping Genitourinary Male: No painful urination, urinary incontinence, urinary frequency, urinary urgency, blood in urine, testicle pain or other Musc Musculoskeletal: No neck pain, abnormal walking, joint pain, back pain, limited range of motion, numbness or tingling Skin Skin: No redness, dry skin, itching, lesions, wounds or rash Neuro Neurology: No weakness, frequent falls, headache(s), abnormal hearing, abnormal walking, numbness, tingling, abnormal speech, dizziness or memory loss Psych Psychiatric: No change in appetite, No memory loss, No anxiety, No depression, No Thoughts of harming yourself/Others Endo Endocrine: No fatigue, excessive sweating, cold intolerance, increased thirst/drinking, heat intolerance, flushing or increased hunger Aller/Imm Allergy/Immunologic: No wheezing, itchy eyes, hives or seasonal allergy symptoms Jose/Lymp Hematologic/Lymphatic: No easy bleeding, easy bruising or enlarged lymph nodes Exam Const General: cooperative, no acute distress Orientation: alert, awake, oriented x3 HENMT Head: atraumatic, normocephalic, normal to inspection Ears: hearing grossly normal bilaterally Resp Effort AND Inspection: normal respiratory effort, able to speak in complete sentences Auscultation: Bilateral: Clear to Auscultation Cardio Rate: regular rate Rhythm: regular rhythm Heart Sounds: S1 normal, S2 normal GI Inspection: obesity Palpation: soft, no hepatosplenomegaly Neuro General: alert, awake, oriented x3, moves all extremities, CN's II-XI intact bilaterally Extrem General: no clubbing, cyanosis or edema Psych Appearance: grossly normal Mental Status: mental status grossly normal Mood: congruent mood Affect: normal affect Assessment AND Plan 1. Anxiety F41.9 Plan Stable. Continue current medication. 2. Hypothyroidism E03.9 Plan Last thyroid function checked within normal. No concerns for over or under correction. Continue current medication. 3. Celiac disease K90.0 Plan Stable. Follows up routinely with Dr. Edwards and is due for colonoscopy. He was advised to schedule this. 4. Chest pain R07.9 Plan Intermittent. Associated with intermittent palpitations/feeling of irregular heartbeat. EKG done per patient was without any significant concerns. Scheduled for stress test on Thursday. Will follow. This note was generated with [employer] dictation software. It may contain incorrect words, spelling, and punctuation that were not noted in checking the note before signing. Coding Level of Care Code Off vis,est,level 3 Diagnoses Anxiety F41.9 Hypothyroidism E03.9 Celiac disease K90.0 Chest pain R07.9 04/06/18 1646 <Electronically signed by Neo Tarango MD> Date Neo Tarango MD [facility] Signature: Date (if applicable) CC: CARDIOLOGY VISIT Observed: 03/30/2018 Status: F Source: [place] REPORT 10:14 AM [facility] RE[facility] [address] [place] [address] OFFICE VISIT Date of Service: 03/24/18 MR#: [id number] Acct: [id number] Name: ANGY CARSON Rep #: [id number] : 1960 Provider: Robert Graham MD Age/Sex: 58/M Location: [facility] [place] Status: Signed HPI HPI Chief Complaint: Initial visit Details: ANGY CARSON, is a 58 M who presents to the office today for an initial visit. He is a gentleman with a history of no obstructive coronary artery disease who had presented over 8 years ago with chest discomfort supraventricular tachyarrhythmia and elevated cardiac enzymes. He underwent a cardiac catheterization at that time with demonstrated normal left main coronary artery, and left anterior descending artery with a 20% stenosis in the mid left anterior descending artery consistent with myocardial bridging. The circumflex artery had a 20-30% stenosis in the right coronary artery was codominant with no significant stenosis. Medical therapy was recommended. He had had a supraventricular tachyarrhythmia and therefore underwent an EP study for recurrent symptomatic narrow complex tachycardia. Dual AV hardik physiology was noted but no accessory pathway was demonstrated. There was successful catheter ablation of the slow AV hardik pathway using cryoablation. Since then he is done well until recently when he started experiencing some chest discomfort not necessarily with exertion as well as palpitations. He presented for follow-up evaluation. His physical exam today demonstrates clear lung ko regular rate and rhythm and no pedal edema. His electrocardiogram demonstrates a normal sinus rhythm with a rate of 84 bpm. Intake Vital Signs03/24/18 Height 6 ft Intake Visit Reasons: PCP ref'd for on/off SOB, chest/throat tightness Allergies No Known Allergies Allergy (Verified 03/24/18 14:01) Medications Fluticasone 0.05% [Flonase Nasal [place]] 1 spray NASAL DAILY 05/05/17 [History Confirmed 03/24/18] avanafil 100 mg tablet 100 mg PO QDAY PRN #7 tab 07/09/17 [Rx Confirmed 03/24/18] levothyroxine 200 mcg tablet 200 mcg PO DAILY #90 tab 11/20/17 [Rx Confirmed 03/24/18] escitalopram 10 mg tablet 10 mg PO DAILY #90 tab 03/17/18 [Rx Confirmed 03/24/18] [facility] Medical History PVC (premature ventricular contraction) (Chronic) SVT (supraventricular tachycardia) (Chronic) Anxiety (Chronic) Celiac disease (Chronic) Chronic back pain (Chronic) Hypothyroidism (Chronic) Seasonal allergies (Chronic) Vitamin D deficiency (Chronic) Arthritis (Chronic) Thyroid disease (Chronic) Surgical History History of left heart catheterization (Resolved 07/20/09) History of radiofrequency ablation procedure for cardiac arrhythmia (Resolved 08/01/09) History of deviated nasal septum (Resolved) History of knee surgery (Resolved) History of total right knee replacement (Resolved) s/p mitro valve (Inactive) Social History Smoking Status: Former smoker how long ago did patient quit smokin alcohol intake: current alcohol intake frequency: a few times a month Alcohol type: beer substance use type: does not use what type of physical activity do you participate in: weight training frequency: 3-4 times per week ROS Const Const: Negative for fatigue, weakness, difficulty sleeping, frequent falls, excessive sweating or headache(s) Eyes Eyes: Negative for loss of peripheral vision, transient loss of vision, blurry vision, tunnel vision or double vision ENT ENT: Negative for headache(s), dizziness, Nosebleed/epistaxis or balance problems Cardio Chest Pain: Yes Character: dull Onset: at rest Location: mid sternal, left chest Duration: minutes Palpitations: No Edema: None Muscle aches with walking: None Resp Respiratory: Positive for SOB with activity (Increase SOB with routine activity); negative for SOB at rest, SOB orthopnea\SOB lying down, paroxysmal nocturnal dyspnea or Cough GI GI: Negative nausea, heartburn, black,tarry stools or vomiting : Negative for hematuria Musc Musc: Negative for balance problems, muscle aches/ myalgia, muscle weakness or joint pain Skin Skin: Negative non-healing lesions, unusual bruising or rash Neuro Neuro: Negative for weakness, frequent falls, headache(s), blurry vision, double vision, dizziness, lightheadedness, orthostatic symptoms, near syncope, syncope or lack of coordination Jose Hematologic/Lymphatic: Negative for easy bruising or easy bleeding Endo Endo: Negative for fatigue, excessive sweating or increased thirst/drinking Psych Psych: Negative for anxiety or depression Allergy Allergy/Immunology: Negative for hives, Negative for rash Cardiology Exam Const Appearance: cooperative, healthy appearing, well developed, well groomed and no acute distress Nutritional Appearance: well nourished and average body habitus Orientation: alert, awake and oriented x3 Head Head: normal to inspection, normocephalic and atraumatic Ears: hearing grossly normal bilaterally and external ears normal Nose: external nose normal, nasal mucous membranes and turbinates normal, nares normal, septum normal, no nasal discharge Face and Sinus: face symmetric Mouth: oral mucosae normal, tongue normal, oropharynx normal and moist mucous membranes Teeth and gingiva: dentition normal Throat: posterior oropharynx normal, tonsils normal and uvula midline Eyes General: appearance normal, both eyes and all related structures Eyelids: eyelids normal Conjunctivae: conjunctivae normal Pupils: PERRL, normal by confrontation and accommodation normal EOM: EOM intact bilaterally Neck Neck: normal visual inspection, trachea midline and no JVD JVD: +5 Carotids: normal carotid upstroke and bounding pulses Chest Chest inspection: normal inspection of the chest, symmetric chest movement and normal respiratory effort Auscultation: Bilateral: Clear to Auscultation Cardio Palpation: normal PMI Rate: regular rate Rhythm: regular rhythm Heart sounds: S1 normal, S2 normal and normal, physiologic split S2; negative rub, gallop or murmur GI GI: normal to inspection, soft, no hepatosplenomegaly and bowel sounds present Neuro General: alert, awake, oriented x3, no focal sensory deficit, gait normal and moves all extremities Skin Skin: no rashes or lesions noted Extremities Pulses: Normal: Right Femoral Pulse, Left Femoral Pulse, Right Dorsalis Pedis Pulse, Left Dorsalis Pedis Pulse, Right Posterior Tibial Pulse, Left Posterior Tibial Pulse, Right Radial Pulse, Left Radial Pulse Lower Extremity Edema: None: Bilateral Musculoskel Musculoskeletal: No joint tenderness Psych Psychological: normal affect Assessment AND Plan 1. Chest pain R07.9 Plan He does have a history of chest discomfort which is somewhat atypical. Due to his prior history my recommendation will be for us to obtain an exercise myocardial perfusion stress test. Depending on these findings further recommendations will be made. He do remember that he had had myocardial bridging previously and therefore would like us to obtain an echocardiogram as well. At this time I will not put him on any medications just yet. Orders Orders: 2. Intermittent palpitations R00.2 Plan He has had a history of palpitations and I would recommend that we obtain a chemistry profile, CBC and I will obtain an echocardiogram to assess his left ventricular function. Depending on the findings further recommendations will then be made. I do not think that he is having a recurrence of his supraventricular tachyarrhythmia and would not order a Holter monitor at this particular time. Orders Orders: Plan Detail Other Orders Orders: Follow Up 4 Months (jhr) Coding Level of Care Code Off vis,new,level 4 Diagnoses Chest pain R07.9 Intermittent palpitations R00.2 Coding Level of Care Code Off vis,new,level 4 Diagnoses Chest pain R07.9 Intermittent palpitations R00.2 03/30/18 1014 <Electronically signed by Robert Graham MD> Date Robert Graham MD Cosigner Signature: Date (if applicable) CC: Neo Tarango MD BASIC METABOLIC Collected: 03/25/2018 Status: F Source: [place]ELA PROFILE (BMP) 12:47 PM [facility] REPOSITORY TYPE CODE TESTS RESULT OUT OF RANGE REFERENCE UNITS LAB L501.0100 74-106 mg/dL Normal GLU 89 Result Comment: Please note revised GLUCOSE reference range effective 2017. LAB L501.1000 7-18 mg/dL Normal BUN 16 LAB L501.1100 0.70-1.30 mg/dL Normal CREAT,SERUM 0.83 Result Comment: The validity of the calculated GFR AND GFRAA in patients over 70 years has not been determined. Clinical correlation is essential. LAB L501.1110 >60 mL/min Normal EST GFR 102 Result Comment: Non- GFR Calc LAB L501.1115 >60 mL/min Normal EST GFR - AA 123 Result Comment: GFR Calc LAB L501.1300 10-20 RATIO Normal BUN/CRE 19.3 LAB L501.2200 8.5-10.1 mg/dL CA Normal 8.5 LAB L501.5300 136-145 mmol/L NA Normal 139 LAB L501.5600 3.5-5.1 mmol/L K Normal 4.2 LAB L501.5900 98-107 mmol/L CL Normal 106 LAB L501.6100 21.0-32.0 mmol/L Normal CO2 26.0 LAB L501.6200 5-15 Normal GAP 7 Performed By: #### L500.2500, L501.5200 #### [facility] [address] [place], [place], [address] MAGNESIUM Collected: 03/25/2018 Status: F Source: [place] 12:47 PM [facility] REPOSITORY TYPE CODE TESTS RESULT OUT OF RANGE REFERENCE UNITS LAB L501.5200 1.6-2.6 mg/dL Normal MG 2.1 Performed By: #### L500.2500, L501.5200 #### [facility] [address] [place], [address] LIPID PROFILE Collected: 03/25/2018 Status: F Source: [place] 12:47 PM [facility] REPOSITORY Order Comment: Comments: Fasting Comments: Fasting TYPE CODE TESTS RESULT OUT OF RANGE REFERENCE UNITS LAB L501.4900 200 mg/dL Normal CHOL 180 Result Comment: <200 mg/dL Desirable 200-240 mg/dL Borderline >240 mg/dL High Risk LAB L501.5000 mg/dL High TRIG 203 Result Comment: The drugs N-Acetylcysteine and Metamizole may falsely depress this assay. Serum Triglycerides Reference Interval Normal <150 mg/dL Borderline high 150 - 199 mg/dL High 200 - 499 mg/dL Very High > or = 500 mg/dL LAB L501.6400 mg/dL Normal HDL 48 Result Comment: The drugs N-Acetylcysteine and Metamizole may falsely depress this assay. Reference Range HDL <40 mg/dL Low HDL Cholesterol HDL >or= 60 mg/dL High HDL Cholesterol LAB L501.6500 0-130 mg/dL Normal LDL 91 LAB L501.6600 5-40 mg/dL High VLDL 41 Performed By: #### L500.4100 #### [facility] [address] [place], [address] 12 LEAD EKG PERFORMED Observed: 03/24/2018 Status: F Source: [place] BY [facility] 2:25 PM [facility] REPOSITORY [facility] [address] [place] [address] 12 Lead EKG performed by [facility] 03/24/18 1422 MR#: [id number] Acct: [id number] Name: ANGY CARSON Rep #: [id number] : 1960 58 From: Robert Graham MD Attending Dr: Robert Graham MD Status: DEP AMB Ordering Dr: Robert Graham MD Date: 03/24/18 Location: [facility] Sex: M C Admitted: [facility]/12 Lead EKG performed by [facility] ECG Report Interpretation Sinus Rhythm WITHIN NORMAL LIMITSElectronically signed on 04/08/2018 at 11:34 by Robert Graham [employer] Software Version 8610 04/08/18 1141 Date Robert Graham MD CC: Neo Tarango MD Date Dictated: 03/24/18 142 Date Transcribed: 03/24/181421 Rough Rice Tender: CO Signed INTERNAL MEDICINE Observed: 01/12/2018 Status: F Source: GABRIELA OFFICE VISIT 5:16 PM [facility] [address] [place] [address] [place] [address] OFFICE VISIT Date of Service: 01/12/18 MR#: [id number] Acct: [id number] Name: ANGY CARSON Rep #: [id number] : 1960 Provider: Neo Tarango MD Age/Sex: 57/M Location: [facility] Status: Signed Intake Vital Signs01/12/18 Height 6 ft Intake Visit Reasons: 6 mo f/u screen REGINA Chief Complaint: follow-up visit Is patient in pain?: No Allergies No Known Allergies Allergy (Verified 09/02/17 15:25) Medications Escitalopram Oxalate [Lexapro] 10 mg PO DAILY 05/05/17 [History Confirmed 01/12/18] Fluticasone 0.05% [Flonase Nasal [place]] 1 spray NASAL DAILY 05/05/17 [History Confirmed 01/12/18] avanafil 100 mg tablet 100 mg PO QDAY PRN #7 tab 07/09/17 [Rx Confirmed 10/14/17] levothyroxine 200 mcg tablet 200 mcg PO DAILY #90 tab 11/20/17 [Rx Confirmed 01/12/18] PFSH Medical History Seasonal allergies (Chronic) Celiac disease (Chronic) Chronic back pain (Chronic) Anxiety (Chronic) Arthritis (Chronic) Thyroid disease (Chronic) Surgical History History of deviated nasal septum (Acute) History of knee surgery (Acute) History of total right knee replacement (Resolved) s/p mitro valve (Inactive) Social History Smoking Status: Former smoker how long ago did patient quit smokin alcohol intake: current alcohol intake frequency: a few times a month Alcohol type: beer substance use type: does not use what type of physical activity do you participate in: weight training frequency: 3-4 times per week HPI HPI Chief Complaint: follow-up visit Details: ANGY CARSON, is a 57yo M who presents to the office today for follow-up of his chronic medical conditions. He has no acute complaints at this time. Most recent thyroid function study within normal. He reports compliance with his medications. ROS Const Constitutional: No weight change, body ache, chills, fatigue, sleep problems, fever(s), change in appetite, snoring, weakness, frequent falls, headache(s) or excessive sweating Eyes Eyes: No change in vision, eye pain, light sensitivity or blurry vision ENT ENT: No headache(s), abnormal hearing, ear pain, tinnitus, nasal congestion, sore throat or neck pain Resp Respiratory: No snoring, cough, shortness of breath or wheezing Cardio Cardiology: No excessive sweating, chest pain at rest, chest pain with exertion, shortness of breath, dyspnea on exertion, palpitations, orthopnea or lightheadedness Gastro GI: No abdominal pain, change in bowel habits, constipation, diarrhea, vomiting, nausea/dyspepsia or cramping Genitourinary Male: No painful urination, urinary incontinence, urinary frequency, urinary urgency, blood in urine, testicle pain or other Musc Musculoskeletal: No neck pain, abnormal walking, joint pain, back pain, limited range of motion, numbness or tingling Skin Skin: No redness, dry skin, itching, lesions, wounds or rash Neuro Neurology: No weakness, frequent falls, headache(s), abnormal hearing, abnormal walking, numbness, tingling, abnormal speech, dizziness or memory loss Psych Psychiatric: No change in appetite, No memory loss, No anxiety, No depression, No Thoughts of harming yourself/Others Endo Endocrine: No fatigue, excessive sweating, cold intolerance, increased thirst/drinking, heat intolerance, flushing or increased hunger Aller/Imm Allergy/Immunologic: No wheezing, itchy eyes, hives or seasonal allergy symptoms Jose/Lymp Hematologic/Lymphatic: No easy bleeding, easy bruising or enlarged lymph nodes Exam Const General: cooperative, no acute distress Orientation: alert, awake, oriented x3 [facility] Head: atraumatic, normocephalic, normal to inspection Ears: hearing grossly normal bilaterally Resp Effort AND Inspection: normal respiratory effort, able to speak in complete sentences Auscultation: Bilateral: Clear to Auscultation Cardio Rate: regular rate Rhythm: regular rhythm Heart Sounds: S1 normal, S2 normal GI Inspection: obesity Palpation: soft, no hepatosplenomegaly Neuro General: alert, awake, oriented x3, moves all extremities, CN's II-XI intact bilaterally Extrem General: no clubbing, cyanosis or edema Psych Appearance: grossly normal Mental Status: mental status grossly normal Mood: congruent mood Affect: normal affect Assessment AND Plan 1. Hypothyroidism E03.9 Plan Stable. No concerning symptoms at this time. Thyroid function stable. Continue current medication. Orders Orders: 2. Anxiety F41.9 Plan Stable. Currently on Lexapro. Continue current medication 3. Celiac disease K90.0 Plan Chronic. Stable. Currently on vitamin D supplements for mild vitamin D insufficiency. Continue follow-up with GI. 4. Healthcare maintenance Z00.00 Plan Now due for a colonoscopy. Advised to follow-up with Dr. Edwards's office. Flu vaccination also recommended. This note was generated with [employer] software. It may contain incorrect words, spelling, and punctuation that were not noted in checking the note before signing. Coding Level of Care Code Off vis,est,level 3 Diagnoses Hypothyroidism E03.9 Anxiety F41.9 Celiac disease K90.0 Healthcare maintenance Z00.00 01/12/18 1716 <Electronically signed by Neo Tarango MD> Date Neo Tarango MD Cosigner Signature: Date (if applicable) CC: THYROID STIM HORMONE Collected: 01/06/2018 Status: F Source: GABRIELA (TSH) 12:03 PM [facility] REPOSITORY TYPE CODE TESTS RESULT OUT OF RANGE REFERENCE UNITS LAB L501.9520 0.358-3.74 uIU/mL Normal TSH 0.61 Performed By: #### L501.9520, L506.0400 #### [facility] [address] [place], [address] T4 FREE DIRECT Collected: 01/06/2018 Status: F Source: G[place]ELA 12:03 PM [facility] REPOSITORY TYPE CODE TESTS RESULT OUT OF RANGE REFERENCE UNITS LAB L506.0400 0.76-1.46 ng/dL Normal T4 FREE 1.02 DIRECT Performed By: #### L501.9520, L506.0400 #### [facility] [address] [place], [address] ORTHOPEDIC VISIT Observed: 11/02/2017 Status: F Source: GABRIELA REPORT 2:52 PM [facility] REPOSITORY [facility] [address] [facility] [address] [place] [address] OFFICE VISIT Date of Service: 10/14/17 MR#: [id number] Acct: [id number] Name: ANGY CARSON Rep #: [id number] : 1960 Provider: Link Harrison DO Age/Sex: 57/M Location: [facility] Status: Signed Intake Intake Visit Reasons: RIGHT KNEE Is patient in pain?: No Allergies No Known Allergies Allergy (Verified 09/02/17 15:25) Medications Levothyroxine [Synthroid] 200 mcg PO DAILY 04/21/17 [History Confirmed 10/14/17] Escitalopram Oxalate [Lexapro] 10 mg PO DAILY 05/05/17 [History Confirmed 10/14/17] Fluticasone 0.05% [Flonase Nasal [place]] 1 spray NASAL DAILY 05/05/17 [History Confirmed 10/14/17] ixekizumab 80 mg/mL subcutaneous auto-injector 80 mg SC Q4W 07/07/17 [History Confirmed 10/14/17] avanafil 100 mg tablet 100 mg PO QDAY PRN #7 tab 07/09/17 [Rx Confirmed 10/14/17] Docusate Sodium [Colace] 100 mg PO BID PRN PRN #10 cap 08/18/17 [Rx Confirmed 10/14/17] MethylPREDNISolone DosePak [Medrol DosePak] 4 mg PO UD #1 box 08/18/17 [Rx Confirmed 10/14/17] PFSH Medical History Seasonal allergies (Chronic) Celiac disease (Chronic) Chronic back pain (Chronic) Anxiety (Chronic) Thyroid disease (Chronic) Surgical History History of deviated nasal septum (Acute) History of knee surgery (Acute) History of total right knee replacement (Resolved) s/p mitro valve (Inactive) Social History Smoking Status: Former smoker how long ago did patient quit smokin alcohol intake: current alcohol intake frequency: a few times a month Alcohol type: beer substance use type: does not use what type of physical activity do you participate in: weight training frequency: 3-4 times per week HPI RIGHT KNEE: Details: ANGY CARSON is a 57 year old M here today for f/u right knee ARYAN 08/18/17 and TKA 05/12/17. He has no complaints of pain, clicking or instability. He has returned to the gym, though infrequent, with no return of pain. He is walking good with normal gait. He has full extension but 90 degrees of flexion. ROS [facility] [place] as per HPI, Reports limited joint movement, Reports stiffness, Denies joint pain, Denies joint swelling, Denies abnormal walking Neuro No abnormal walking Ortho Exam Right Knee Skin/Wound: Yes CDI Contralateral Normal: Yes Swelling: No Homans Sign: No Knee ROM: Yes ROM-Flexion 0-140 (0-100) Quad Atrophy: No Stability: NML: Posterior Drawer, NML: Valgus 0, NML: Valgus 30, NML: Varus 0, NML: Varus 30, NML: Dial 90, NML: Dial 30 Popliteal Adenopathy: No Patella Translation: 1 Apprehension with Lateral Translation: No Patellar Tilt Normal: Yes Patella Grind: No KNEE: No calf pain negative Homans. Range of motion 0-100 at this time. Able for straight leg raise without lag. No defects appreciated to the quad tendon Left Knee Patella Translation: 1 Assessment AND Plan Problems 1. Orthopedic aftercare Z47.89 2. Stiffness of right knee M25.661 3. History of total right knee replacement (TKR) Z96.651 Plan Assessment: After orthopedic status post manipulation anesthesia for stiffness status post right total knee arthroplasty. Plan: This point time where the skin is stay the course and continued on range of motion and see how the patient progresses over the next 6 months. Told patient if he continues have difficulty with gaining increased flexion he may need a revision procedure specifically to the patella. The patient had a very thick patella and I am wondering if he still little bit overstuffed despite an equivalent resection for the standard implant. Patient states that he can do most activities and has no pain which is his biggest plus for him. See him back in 6 months. Patient aware that I am leaving the practice. The patient were to require a revision type procedure specifically I will refer him to Dr. Ortiz at the [facility] Coding Level of Care Code Global Post Op Diagnoses Orthopedic aftercare Z47.89 Stiffness of right knee M25.661 History of total right knee replacement (TKR) Z96.651 11/02/17 8712 <Electronically signed by Link Harrison DO> Date Link Harrison DO Cosigner Signature: Date (if applicable) CC: ORTHOPEDIC VISIT Observed: 09/16/2017 Status: F Source: GABRIELA REPORT 7:59 AM [facility] REPOSITORY [facility] [address] [place] [address] OFFICE VISIT Date of Service: 09/02/17 MR#: [id number] Acct: [id number] Name: ANGY CARSON Rep #: [id number] : 1960 Provider: Link Harrison DO Age/Sex: 57/M Location: [facility] Status: Signed Intake Intake Visit Reasons: RIGHT KNEE Is patient in pain?: No Allergies No Known Allergies Allergy (Verified 09/02/17 15:25) Medications Levothyroxine [Synthroid] 200 mcg PO DAILY 04/21/17 [History Confirmed 08/12/17] Escitalopram Oxalate [Lexapro] 10 mg PO DAILY 05/05/17 [History Confirmed 08/12/17] Fluticasone 0.05% [Flonase Nasal [place]] 1 spray NASAL DAILY 05/05/17 [History Confirmed 08/12/17] ixekizumab 80 mg/mL subcutaneous auto-injector 80 mg SC Q4W 07/07/17 [History Confirmed 08/12/17] avanafil 100 mg tablet 100 mg PO QDAY PRN #7 tab 07/09/17 [Rx Confirmed 08/12/17] Docusate Sodium [Colace] 100 mg PO BID PRN PRN #10 cap 08/18/17 [Rx] Hydrocodone Bitart/Apap 5-325 [Madison 5/325] 1 - 2 tab PO Q6H PRN PRN #30 tab 08/18/17 [Rx] MethylPREDNISolone DosePak [Medrol DosePak] 4 mg PO UD #1 box 08/18/17 [Rx] proMETHazine tablet [Phenergan] 25 mg PO Q4H PRN PRN #10 tab 08/18/17 [Rx] PFSH Medical History Seasonal allergies (Chronic) Celiac disease (Chronic) Chronic back pain (Chronic) Anxiety (Chronic) Thyroid disease (Chronic) Surgical History History of deviated nasal septum (Acute) History of knee surgery (Acute) History of total right knee replacement (Resolved) s/p mitro valve (Inactive) Social History Smoking Status: Former smoker how long ago did patient quit smokin alcohol intake: current alcohol intake frequency: a few times a month Alcohol type: beer substance use type: does not use what type of physical activity do you participate in: weight training frequency: 3-4 times per week HPI RIGHT KNEE: Details: ANGY CARSON is a 57 year old M here today for S/P right knee ARYAN dos 08/18/17. Patient notes that he has decreased stiffness and his range of motion is improving. He denies any formal physical therapy but has a home exercise program that he has been doing. He denies any calf pain. His incision is fully healed. ROS Const Reports system reviewed and no additional complaints, except as docu Eyes Reports system reviewed and no additional complaints, except as docu ENT Reports system reviewed and no additional complaints, except as docu Card Reports system reviewed and no additional complaints, except as docu Resp Reports system reviewed and no additional complaints, except as docu GI Reports system reviewed and no additional complaints, except as docu Reports system reviewed and no additional complaints, except as docu Musc Reports stiffness Skin/Breast Reports system reviewed and no additional complaints, except as docu Neuro Yes system reviewed and no additional complaints, except as docu Psych Reports system reviewed and no additional complaints, except as docu Endo Reports system reviewed and no additional complaints, except as docu Ortho Exam Right Knee Contralateral Normal: Yes Swelling: No Homans Sign: No 1+: Effusion Knee ROM: Yes ROM-Flexion 0-140 (0-115) Quad Atrophy: No Stability: NML: Posterior Drawer, NML: Valgus 0, NML: Valgus 30, NML: Varus 0, NML: Varus 30, NML: Dial 90, NML: Dial 30 Popliteal Adenopathy: No Apprehension with Lateral Translation: No Patellar Tilt Normal: Yes Patella Grind: No KNEE: Decreased effusion. Range of motion 0-115. No calf pain negative Homans. Patient's he remained supple at this time. Assessment AND Plan Problems 1. History of total right knee replacement (TKR) Z96.651 2. Stiffness of right knee M25.661 3. Orthopedic aftercare Z47.89 Plan Assessment: After orthopedics status post right knee manipulation or anesthesia. Plan: This point time patient's knee has improved and overall motion. He did lose some as expected coming back. At this point seems to be making progress. Will continue with range of motion exercises and active activities with patient continue work on aggressive extension again. I will see the patient back in 6 weeks. Any major issues return. Coding Level of Care Code Global Post Op Diagnoses History of total right knee replacement (TKR) Z96.651 Stiffness of right knee M25.661 Orthopedic aftercare Z47.89 09/16/17 0759 <Electronically signed by Link Harrison DO> Date Link Harrison DO Cosignjanice Signature: Date (if applicable) CC: OPERATIVE REPORT Observed: 08/18/2017 Status: F Source: [place] 9:27 AM [facility] RE[facility]IT[facility] Medical Records Department [address] [place] [address] Operative Report 08/18/17 0924 MR#: [id number] Acct: [id number] Name: ANGY CARSON Rep #: [id number] : 1960 57 From: Link Harrison DO PCP: Neo Tarango MD Status: REG [facility] Location: [place] [address] Report of Operation Date of Procedure: 08/18/17 Pre-Operative Diagnosis: Right knee stiffness status post total knee arthroplasty Post-Operative Diagnosis: Same as above Surgery/Procedure Performed:: Right knee manipulation under anesthesia Description of Surgical Findings:: 57-year-old male roughly 3 months status post right total knee arthroplasty. Patient was having some difficulty with gaining range of motion it was my recommendation the patient undergo a manipulation under anesthesia. Patient agreed he was counseled and consented for the aforementioned procedure. He is met in the holding area where the right lower extremity was marked and identified by the orthopedic surgeon. Patient was taken to the operating room in satisfactory condition with somewhat to place to identify patient operative procedure and limb. No preoperative antibiotics due to close procedure. He underwent a successful intubation by anesthesia. Initial range of motion on table was 5 short of terminal extension to roughly 90-95 . At that point time a gentle manipulation under anesthesia was undertaken initially in extension with some small adhesion releases moving into full extension and then keeping a short lever arm we gently bent the knee up to roughly 125 of knee flexion perhaps even 130 with obvious release of adhesions. His patella moved through good range of motion did not appear to be overly contracted anteriorly we did try to mobilize at both medial laterally and superior inferior with appropriate tilt. Patient remained ligamentously stable did not feel any obvious deformities concerning for fracture. At that point time the patient was extubated and returned to recovery room. Patient will start outpatient physical therapy again work on aggressive range of motion. He will follow-up with me in 2 weeks. Any major issues please contact me. I was scrubbed and available time during our procedure. We had no drains or complications and no implants watchstander: NONE Type of Anesthesia:: General Specimen's removed: None Drains: None Estimated Blood Loss (mL): 0 - Complications None - Admit VTE Documentation VTE Present on Admission: No VTE Mechan Device Prophylaxis: SCD's VTE Pharm Prophylaxis ordered?: No Reason prophylaxis not ordered:: Treatment Not Indicated 08/18/17 0927 <Electronically signed by Link Harrison DO> Date Link Harrison DO CC: Neo Tarango MD; Link Harrison DO Signed DISCHARGE INSTRUCTION Observed: 08/18/2017 Status: F Source: [place] 7:02 AM [facility] REPOSITORY [facility] Medical Records Department [address] [place] [address] Instructions for Home/Discharge Instructions 08/18/17 0701 MR#: [id number] Acct: [id number] Name: ANGY CARSON Rep #: [id number] : 1960 57 From: Link Harrison DO PCP: Neo Tarango MD Status: PRE SDC Discharge Activity: Return to Normal Activity, May not drive while taking narcotic pain medications., May Shower May resume sexual activity in: No Restrictions Ice area for (Minutes): 20 Weight Bearing Status: Weight bearing as tolerated Call your doctor if your incision/area has: Continuous Slow Oozing, Sudden Increased Bleeding, Increased Pain/ Swelling, Increased Redness, Foul Smelling Discharge Call your doctor if you observe: Fever of 101 or Higher, Coldness, Increased Pain, Numbness or Tingling, Change in Color, Calf discomfort Cleanse incision/area with: Soap AND Water Allergies/Adverse Reactions: Allergies No Known Allergies Allergy (Verified 08/12/17 14:57) Medications to take at Discharge Levothyroxine [Synthroid] 200 mcg PO DAILY 04/21/17 Escitalopram Oxalate [Lexapro] 10 mg PO DAILY 05/05/17 Fluticasone 0.05% [Flonase Nasal [place]] 1 spray NASAL DAILY 05/05/17 ixekizumab 80 mg/mL subcutaneous auto-injector 80 mg SC Q4W 07/07/17 avanafil 100 mg tablet 100 mg PO QDAY PRN #7 tab 07/09/17 Docusate Sodium [Colace] 100 mg PO BID PRN PRN #10 cap 08/18/17 Hydrocodone Bitart/Apap 5-325 [Madison 5/325] 1 - 2 tablet PO Q6H PRN PRN #30 tablet 08/18/17 MethylPREDNISolone DosePak [Medrol DosePak] 4 mg PO UD #1 box 08/18/17 proMETHazine tablet [Phenergan] 25 mg PO Q4H PRN PRN #10 tab 08/18/17 The following prescriptions were given: proMETHazine tablet [Phenergan] 25 mg PO Q4H PRN PRN #10 tab PRN Reason: Nausea Hydrocodone Bitart/Apap 5-325 [Madison 5/325] 1 - 2 tablet PO Q6H PRN PRN #30 tablet PRN Reason: Pain Docusate Sodium [Colace] 100 mg PO BID PRN PRN #10 cap PRN Reason: Constipation MethylPREDNISolone DosePak [Medrol DosePak] 4 mg PO UD #1 box Primary Care Physician: Neo Tarango MD [Primary Care Provider] - Please Follow Up With: Link Harrison DO When: call [facility] for appt for 2 weeks Proposed Discharge Date: 08/18/17 08/18/17 0702 <Electronically signed by Link Harrison DO> Date Link Harrison DO CC: Neo Tarango MD ORTHOPEDIC VISIT Observed: 08/10/2017 Status: F Source: [place] REPORT 2:43 PM [facility] REPOSITORY [facility] [address] [place] [address] OFFICE VISIT Date of Service: 08/10/17 MR#: [id number] Acct: [id number] Name: ANGY CARSON Rep #: [id number] : 1960 Provider: Link Harrison DO Age/Sex: 57/M Location: [facility] Status: Signed Intake Intake Visit Reasons: right knee Is patient in pain?: No Allergies No Known Allergies Allergy (Verified 05/25/17 14:04) Medications Levothyroxine [Synthroid] 200 mcg PO DAILY 04/21/17 [History Confirmed 05/25/17] Escitalopram Oxalate [Lexapro] 10 mg PO DAILY 05/05/17 [History Confirmed 05/25/17] Fluticasone 0.05% [Flonase Nasal [place]] 1 spray NASAL DAILY 05/05/17 [History Confirmed 05/25/17] ixekizumab 80 mg/mL subcutaneous auto-injector 80 mg SC Q4W 07/07/17 [History Confirmed 07/07/17] avanafil 100 mg tablet 100 mg PO QDAY PRN #7 tab 07/09/17 [Rx] [facility] Medical History Seasonal allergies (Chronic) Celiac disease (Chronic) Chronic back pain (Chronic) Anxiety (Chronic) Thyroid disease (Chronic) Surgical History History of deviated nasal septum (Acute) History of knee surgery (Acute) History of total right knee replacement (Resolved) s/p mitro valve (Inactive) Social History Smoking Status: Former smoker how long ago did patient quit smokin alcohol intake: current alcohol intake frequency: a few times a month Alcohol type: beer substance use type: does not use what type of physical activity do you participate in: weight training frequency: 3-4 times per week HPI right knee: Details: ANGY CARSON is a 57 year old M here today for f/u right TKA 05/12/17, he continues to have limited flexion of about 95 degrees, but full ext. He state that there is a skin sensation change but no other numbness, mild normal swelling of the knee noted as well. He has return to all activities but has some difficulty with squatting ROS Musc Reports limited joint movement, Reports stiffness, Reports as per HPI, Reports joint swelling Ortho Exam Right Knee Skin/Wound: Yes CDI Contralateral Normal: No Swelling: Yes Homans Sign: No 1+: Effusion Knee ROM: Yes ROM-Flexion 0-140 (0-90) Quad Atrophy: No Stability: NML: Anterior Drawer, NML: Renaldo, NML: Posterior Drawer, NML: Valgus 0, NML: Valgus 30, NML: Varus 0, NML: Varus 30, NML: Dial 90, NML: Dial 30 Popliteal Adenopathy: No Patella Translation: 1 Apprehension with Lateral Translation: No Patellar Tilt Normal: Yes Patella Grind: No KNEE: General: well developed, well nourished in no acute distress. Head: normocephalic and atraumatic Pulses: pulses normal in all 4 extremities. Neurologic: no focal deficits, cranial nerves II-XII grossly intact with normal sensation, reflexed, coordination, muscle strength and tone. Axillary Nodes: no significant adenopathy. Psych: alert and cooperative, normal mood and affect, normal attention span and concentration. Heart regular with an S1-S2 lungs clear to auscultation bilaterally abdomen is soft nontender nondistended with no gross specimen or splenomegaly. Patient's right knee is otherwise is neurovascular intact however range of motion is limited 0-90-95 at best. He has 1+ effusion but no erythema in for straight leg raise on lag. He has no quad pain no popliteal masses no adenopathy. EHL anterior gastrocsoleus peroneals quads hamstrings 5 out of 5 Left Knee Skin/Wound: Yes CDI Contralateral Normal: Yes Swelling: No Homans Sign: No Quad Atrophy: No Stability: NML: Anterior Drawer, NML: Renaldo, NML: Posterior Drawer, NML: Valgus 0, NML: Valgus 30, NML: Varus 0, NML: Varus 30, NML: Dial 90, NML: Dial 30 Patella Translation: 1 Apprehension with Lateral Translation: No Patellar Tilt Normal: Yes Patella Grind: No Assessment AND Plan Problems 1. Stiffness of right knee M25.661 2. History of total right knee replacement (TKR) Z96.651 Plan Assessment: Right knee stiffness status post right total knee arthroplasty date of operation 05/12/2017. Plan: At this point time I think recti and an attempt to proceed with a right knee manipulation under anesthesia. Patient understands risks and benefits to include fracture and failure of operative intervention. At this point time patient agrees to proceed with intervention. Reviewed the pre-operative plans with the patient. Risks and benefits of the procedure were fully explained, including but not limited to infection, neurovascular injury, continued pain, arthritis, stiffness, need for further surgery, re-injury, DVT, PE, general risks of anesthesia, and loss of limb or life. The patient understands all the risks and does wish to proceed with written consent. Coding Level of Care Code Global Post Op Diagnoses Stiffness of right knee M25.661 History of total right knee replacement (TKR) Z96.651 08/10/17 1443 <Electronically signed by Link Harrison DO> Date Link Harrison DO Cosigner Signature: Date (if applicable) CC: PT D/C SUMMARY (1) Observed: 07/24/2017 Status: F Source: [place] 5:03 PM [facility] RE[facility]ITORY [facility] [address] [place] [address] Fax REHABILITATION SERVICES DISCHARGE SUMMARY MR#: [id number] Acct: [id number] Name: ANGY CARSON Rep #: [id number] : 1960 57 From: Cuca Urrutia PT, Cert. MDT Referring Dr.: Link Harrison DO Status: REG RCR Insurance: [facility] [place] [id number] SELF PAY INSURANCE HP - PT D/C Summary It has been my pleasure to treat ANGY CARSON under orders from Link Harrison DO, for the diagnosis of S/P RTKR 05/12/17 for a total of 18 visit(s). Discharge Date: Please see the following information for a summary of their discharge status. - Subjective Subjective: PATIENT REPORTS HE DOESN'T DO HIS EX'S MUCH HE SHOULD. STATES HE HAS BEEN BACK TO WORK ABOUT 3 WEEKS AND HAS BACKED OFF SOME OF THE EX'S AT THE [facility] TOO. STATES HE CAN CONTINUE ON HIS OWN WITH WHAT WE HAVE TAUGHT HIM BUT HE IS GLAD HE CONTNUED WHEN WE RECOMMENDED IT THE LAST TIME. - Pain right knee Pain Intensity (Out of 10): 0 - Overall Improvement % Improvement: 90 - Objective Objective/Function: -8 DEG RIGHT KNEE EXT TO 108 DEG FLEX RIGHT KNEE IN SUPINE WITH A HEEL SLIDE. - Goals Goal 1:: DECREASE C/O RIGHT KNEE PAIN Goal Progress: Goal Met Goal 2:: IMPROVE STANDING, WALKING, ADL AND WORK FUNCTION Goal Progress: Goal Met Goal 3:: INCREASE FUNCTIONAL ROM OF RIGHT LE Goal Progress: Goal Met Goal 4:: INCREASE FUNCTIONAL STRENGTH OF RIGHT LE Goal Progress: Goal Met Goal 5:: INDEP AND SAFE GAIT ON ALL SURFACES WITH LEAST ASSISTIVE DEVICE. Goal Progress: Goal Met Goal 6:: INDEP HEP Goal Progress: Goal Met - Plan Plan: D/C TO INDEP EX AT PATIENTS REQUEST. RECOMMEND CONTINUED PT IF PATIENT HAS NOT CONTINUED TO PROGRESS WITH ROM BY THE TIME HE RECHECKS WITH DR. HARRISON IN A FEW WEEKS. - D/C Information If there are questions or concerns regarding this patient's physical therapy, please feel free to call me at [phone]. Thank you for the referral of this patient. Sincerely, Cuca Urrutia <Electronically signed by Cuca Urrutia PT, Cert. MDT> 07/24/17 6003 CC: Neo Tarango MD; Link Harrison DO SO Signed THYROID STIM HORMONE Collected: 07/13/2017 Status: F Source: [place] (TSH) 1:29 PM [facility] REPOSITORY TYPE CODE TESTS RESULT OUT OF RANGE REFERENCE UNITS LAB L501.9520 0.358-3.74 uIU/mL Normal TSH 0.41 Performed By: #### L501.9520, L506.0400 #### [facility] [address] [place], [place], [id number] T4 FREE DIRECT Collected: 07/13/2017 Status: F Source: [place] 1:29 PM [facility] REPOSITORY TYPE CODE TESTS RESULT OUT OF RANGE REFERENCE UNITS LAB L506.0400 0.76-1.46 ng/dL Normal T4 FREE 1.34 DIRECT Performed By: #### L501.9520, L506.0400 #### [facility] [address] [place], [address] THYROID STIM HORMONE Collected: 07/08/2017 Status: F Source: [place] (TSH) 11:34 AM [facility] REPOSITORY TYPE CODE TESTS RESULT OUT OF RANGE REFERENCE UNITS LAB L501.9520 0.358-3.74 uIU/mL Low TSH 0.32 Performed By: #### L501.9520, L506.0400 #### [facility] [address] [place], [address] T4 FREE DIRECT Collected: 07/08/2017 Status: F Source: [place] 11:34 AM [facility] REPOSITORY TYPE CODE TESTS RESULT OUT OF RANGE REFERENCE UNITS LAB L506.0400 0.76-1.46 ng/dL Normal T4 FREE 1.23 DIRECT Performed By: #### L501.9520, L506.0400 #### [facility] [address] [place], [address] INTERNAL MEDICINE Observed: 07/07/2017 Status: F Source: [place] OFFICE VISIT 4:07 PM [facility] REPOSITORY [facility] [address] [place] [address] OFFICE VISIT Date of Service: 07/07/17 MR#: [id number] Acct: [id number] Name: ANGY CARSON Rep #: [id number] : 1960 Provider: Denny Trinidad NP Age/Sex: 57/M Location: [facility] Status: Signed Intake Vital Signs07/07/17 Height 6 ft Intake Visit Reasons: 6 mo fu Chief Complaint: follow-up visit Is patient in pain?: No Allergies No Known Allergies Allergy (Verified 05/25/17 14:04) Medications Levothyroxine [Synthroid] 200 mcg PO DAILY 04/21/17 [History Confirmed 05/25/17] Escitalopram Oxalate [Lexapro] 10 mg PO DAILY 05/05/17 [History Confirmed 05/25/17] Fluticasone 0.05% [Flonase Nasal [place]] 1 spray NASAL DAILY 05/05/17 [History Confirmed 05/25/17] ixekizumab 80 mg/mL subcutaneous auto-injector 80 mg SC Q4W 07/07/17 [History Confirmed 07/07/17] sildenafil 50 mg tablet 50 mg PO QDAY PRN #6 tab 07/07/17 [Rx Confirmed 07/07/17] PFSH Medical History (Reviewed 07/07/17 @ 4:00 pm by KEELEY Dick) Seasonal allergies (Chronic) Celiac disease (Chronic) Chronic back pain (Chronic) Anxiety (Chronic) Thyroid disease (Chronic) Surgical History (Reviewed 07/07/17 @ 4:00 pm by KEELEY Dick) History of deviated nasal septum (Acute) History of knee surgery (Acute) History of total right knee replacement (Resolved) s/p mitro valve (Inactive) Social History Smoking Status: Former smoker how long ago did patient quit smokin alcohol intake: current alcohol intake frequency: a few times a month Alcohol type: beer substance use type: does not use what type of physical activity do you participate in: weight training frequency: 3-4 times per week HPI HPI Chief Complaint: follow-up visit Details: ANGY CARSON, is a 57 M who presents to the office today for a follow-up of his chronic conditions. He has a past medical history which is significant for that of hypothyroidism, depression, anxiety, psoriatic arthritis, seasonal allergies, erectile dysfunction, vitamin D insufficiency, and osteoarthritis. He recently had a right knee replacement done and is doing well. The patient states since his previous office visit he is doing well, he has no acute complaints at this time. He has not started his vitamin D replacement therapy. He does state that he was diagnosed with psoriatic arthritis in the past and is following up with rheumatology later this month. He does state regarding his erectile dysfunction, he is requesting a refill of his PDE 5 inhibitor. He states that his depression anxiety is well controlled and denies any thoughts of harming self or others. Regarding his hypothyroidism, he denies any current signs and symptoms of hypo-or hyperthyroidism is doing well on his thyroid replacement therapy. He is up-to-date on his influenza vaccine. He denies any other acute complaints. The patient otherwise denies any fever, chills, nausea, vomiting, shortness of breath, chest pain or pressure, palpitations, orthopnea, lower extremity edema, syncope or presyncopal episodes. ROS Const Constitutional: No weight change, body ache, chills, fatigue, sleep problems, fever(s), change in appetite, snoring, weakness, frequent falls, headache(s) or excessive sweating Eyes Eyes: No change in vision, eye pain, light sensitivity or blurry vision ENT ENT: No headache(s), abnormal hearing, ear pain, tinnitus, nasal congestion, sore throat or neck pain Resp Respiratory: No snoring, cough, shortness of breath or wheezing Cardio Cardiology: No excessive sweating, chest pain at rest, chest pain with exertion, shortness of breath, dyspnea on exertion, palpitations, orthopnea or lightheadedness Gastro GI: No abdominal pain, change in bowel habits, constipation, diarrhea, vomiting, nausea/dyspepsia or cramping Musc Musculoskeletal: No neck pain, abnormal walking, joint pain, back pain, limited range of motion, numbness, tingling or muscle weakness Skin Skin: No redness, dry skin, itching, lesions, wounds or rash Neuro Neurology: No weakness, frequent falls, headache(s), abnormal hearing, abnormal walking, numbness, tingling, abnormal speech, dizziness or memory loss Psych Psychiatric: No change in appetite, No memory loss, No anxiety, No depression, No Thoughts of harming yourself/Others Endo Endocrine: No fatigue, excessive sweating, cold intolerance, increased thirst/drinking, heat intolerance, flushing or increased hunger Aller/Imm Allergy/Immunologic: No wheezing, itchy eyes, hives or seasonal allergy symptoms Jose/Lymp Hematologic/Lymphatic: No easy bleeding, easy bruising or enlarged lymph nodes Exam Const General: cooperative, comfortable, no acute distress Nutritional Appearance: average body habitus, well nourished Orientation: alert, oriented x3 Limitations: mental status not altered HENMT Head: normal to inspection Ears: hearing grossly normal bilaterally Nose: external nose normal Eyes General: appearance normal, both eyes and all related structures Resp Effort AND Inspection: normal respiratory effort, able to speak in complete sentences, normal respiratory pattern, symmetric chest movement, no audible wheezes, no cough Auscultation: Bilateral: Clear to Auscultation Cardio Palpation: normal PMI Rate: regular rate Heart Sounds: S1 normal, S2 normal, normal S1 and S2, no click, no gallops, no murmurs, no rubs GI Inspection: normal to inspection Auscultation: normal bowel sounds, no hyperactive bowel sounds, no hypoactive bowel sounds Palpation: soft, no hepatosplenomegaly Musc Musculoskeletal: No joint tenderness, decreased ROM or muscle weakness Skin General: no rashes or lesions noted, elasticity normal, turgor normal Lesions: no lesions Rashes: no rashes Neuro General: alert, awake, oriented x3, CN's II-XI intact bilaterally Speech: speech normal Gait: normal gait Motor: muscle tone normal throughout Extrem General: normal to inspection, normal gait, edema Laterality: right (Lower extremity) Severity: 1+ and non-pitting Psych Appearance: grossly normal Mental Status: mental status grossly normal Affect: normal affect Attitude: cooperative Thought Process: normal Assessment AND Plan 1. Hypothyroidism E03.9 Plan Stable on current levothyroxine therapy. No current symptoms of hypo-or hyperthyroidism. Will continue with current regimen. The patient does bring up some daytime tiredness at time and has a history of snoring, would like screening for REGINA to be considered at his next follow-up appointment Orders Orders: 2. Erectile dysfunction N52.9 Plan Patient does have a history of erectile dysfunction with treatment of Viagra, refills placed to his pharmacy 3. Vitamin D insufficiency E55.9 Plan Patient does have a history of vitamin D insufficiency and has not started an ezsn-whf-atrdicl treatment. Advised to take 2000 units of vitamin D daily. 4. Depression with anxiety F41.8 Plan Well-controlled on current SSRI therapy, no changes at this time. This note was generated with [employer] software. It may contain incorrect words, spelling, and punctuation that were not noted in checking the note before signing. Plan Detail Other Medications New: sildenafil (Viagra) administer 30 minutes to 4 hours50 mg PO QDAY PRN sexual activity before activity Follow Up 6 months for preventative physical and f/u hypothyroidism Coding Level of Care Code Off vis,est,level 3 Diagnoses Hypothyroidism E03.9 Erectile dysfunction N52.9 Vitamin D insufficiency E55.9 Depression with anxiety F41.8 07/07/17 1607 <Electronically signed by Denny MINA> Date Denny MINA Cosigner Signature: Date (if applicable) CC: ORTHOPEDIC VISIT Observed: 06/26/2017 Status: F Source: [place] REPORT 1:51 PM [facility] RE[facility]ITORY [facility] [address] [place] [address] OFFICE VISIT Date of Service: 06/22/17 MR#: [id number] Acct: [id number] Name: ANGY CARSON Rep #: [id number] : 1960 Provider: Link Harrison DO Age/Sex: 57/M Location: [facility] Status: Signed Intake Intake Visit Reasons: right knee Is patient in pain?: No Allergies No Known Allergies Allergy (Verified 05/25/17 14:04) Medications Levothyroxine [Synthroid] 200 mcg PO DAILY 04/21/17 [History Confirmed 05/25/17] Escitalopram Oxalate [Lexapro] 10 mg PO DAILY 05/05/17 [History Confirmed 05/25/17] Fluticasone 0.05% [Flonase Nasal [place]] 1 spray NASAL DAILY 05/05/17 [History Confirmed 05/25/17] Docusate Sodium [Colace] 100 mg PO BID PRN PRN #10 cap 05/13/17 [Rx Confirmed 05/25/17] ProMETHAzine [Phenergan] 25 mg PO Q4H PRN PRN #10 tab 05/13/17 [Rx Confirmed 05/25/17] Oxycodone CR [Oxycontin] 10 mg PO Q12H #10 tab 05/14/17 [Rx Confirmed 05/25/17] Aspirin E.C. [Ecotrin] 325 mg PO DAILY@0800 #30 tab 05/17/17 [Rx Confirmed 05/25/17] Famotidine 20 mg PO BID #30 tab 05/17/17 [Rx Confirmed 05/25/17] Famotidine [Pepcid] 20 mg PO BID tab 05/17/17 [Rx Confirmed 05/25/17] enoxaparin 40 mg/0.4 mL subcutaneous syringe 40 mg SC ONCE ml 05/25/17 [History Confirmed 05/25/17] [facility] Medical History Thyroid disease (Chronic) Surgical History History of total right knee replacement (Resolved) s/p mitro valve (Inactive) Social History Smoking Status: Former smoker HPI right knee: Details: ANGY CARSON is a 57 year old M here today s/p right TKA, dos 05/12/17. Patient states that he is doing well and not having any pain. He has been doing formal physical therapy which has been helpful. He denies taking any pain medications. Denies numbness, tingling or other associated symptoms. His incision is fully healed. ROS Const Reports system reviewed and no additional complaints, except as docu Eyes Reports system reviewed and no additional complaints, except as docu ENT Reports system reviewed and no additional complaints, except as docu Card Reports system reviewed and no additional complaints, except as docu Resp Reports system reviewed and no additional complaints, except as docu GI Reports system reviewed and no additional complaints, except as docu Reports system reviewed and no additional complaints, except as docu Musc Reports limited joint movement, Reports stiffness Skin/Breast Reports system reviewed and no additional complaints, except as docu Neuro Yes system reviewed and no additional complaints, except as docu Psych Reports system reviewed and no additional complaints, except as docu Endo Reports system reviewed and no additional complaints, except as docu Ortho Exam Right Knee Skin/Wound: Yes CDI Contralateral Normal: Yes Swelling: No Homans Sign: No 1+: Effusion Knee ROM: Yes ROM-Flexion 0-140 (0-105) Quad Atrophy: No Stability: NML: Posterior Drawer, NML: Valgus 0, NML: Valgus 30, NML: Varus 0, NML: Varus 30, NML: Dial 90, NML: Dial 30 Popliteal Adenopathy: No Patella Translation: 1 Apprehension with Lateral Translation: No Patellar Tilt Normal: Yes Patella Grind: No KNEE: Alert oriented 3 no acute distress. Appropriate eye contact affect. Walks an antalgic gait. Gross motor strength out of 5. In for straight leg raise on lag. He has mild effusion noted today no erythema no calf pain negative Homans. Range of motion 0-105. X-rays: Evaluated myself patient-hardware otherwise well-seated well-placed. Patella centered. Left Knee Patella Translation: 1 Assessment AND Plan Problems 1. Orthopedic aftercare Z47.89 Plan Assessment: After orthopedic status post right total knee arthroplasty. Patient doing well. Plan: Follow-up in 6 weeks. No x-rays range of motion check. Patient may return to work at this time if he feels able. Work note provided. Any major issues return. Orders Orders: Coding Level of Care Code Global Post Op Diagnoses Orthopedic aftercare Z47.89 06/26/17 1351 <Electronically signed by Link Harrison DO> Date Link Harrison DO Cosigner Signature: Date (if applicable) CC: KNEE 4 OR MORE Observed: 06/22/2017 Status: F Source: [place] VIEWS 12:42 PM [facility] REPOSITORY [facility] Imaging Services [address] [place] [address] Knee 4 or More Views MR#: [id number] Acct: [id number] Name: ANGY CARSON Rep #: [id number] : 1960 M 57 From: Gertrude Christy MD PCP: Neo Tarango MD Status: REG CLI Study: Knee 4 or More Views Date of Exam: 06/22/17 Exam# [id number] Ordering Dr: Link Harrison DO STUDY: X-RAY - RIGHT KNEE REASON FOR EXAM: Male, 57 years old. Postop TECHNIQUE: 4 view(s) of the knee. Weight-bearing COMPARISON: 05/12/2017 FINDINGS: Normal visualized distal femur. Normal visualized proximal tibia and fibula. Normal proximal tibiofibular articulation. Status post total knee arthroplasty in anatomic alignment with maintained hardware, normal bony interface. Stable spurring along the femoral and tibial articular surface. Small effusion. Mild anterior knee edema. Resorption of prior subcutaneous air. RAD/Knee 4 or More Views IMPRESSION: Total knee arthroplasty in anatomic alignment. Mild effusion. Electronically Signed: Gertrude Christy MD at 2:29 EST , Service support , CC: Neo Tarango MD; Link Harrison DO Rough Rice Tender: Signed RE-EVALUATION - PT (1) Observed: 06/17/2017 Status: F Source: [place] 6:14 PM [facility] REPOSITORY [facility] [address] [place], [place] [address] Fax REEVALUATION / MEDICARE RECERTIFICATION PHYSICAL THERAPY MR#: [id number] Acct: [id number] Name: ANGY CARSON Rep #: [id number] : 1960 57 From: Cuca Urrutia PT, Cert. MDT Referring DrBiju: Link Harrison DO Status: REG RCR Insurance: [facility] [place] [id number] SELF PAY INSURANCE Link Harrison DO, It has been my pleasure to treat ANGY CARSON over the last 10 visits for S/P RTKR 05/12/17. Please see the progress note below for an update on the physical therapy plan of care! Subjective: PATIENT REPORTS HE REALLY ISN'T HAVING PAIN JUST STIFFNESS. PATIENT REPORTS HE FEELS HE IS DOING REALLY GOOD. HE STATES HE REALLY DOESN'T FEEL LIKE HE NEEDS MORE PT BECAUSE OF HOW MUCH WE HAVE TAUGHT HIM. DOING HOME EX'S AND GOING TO THE [facility] WHEN HE DOESN'T HAVE PT. Objective/Function: RIGHT KNEE ROM IN SUPINE WITH A HEEL SLIDE = -19 DEG EXT TO 100 DEG FLEX. RECOMMEND CONTINUED PT. Plan Plan: CONT PER POC BUT DECREASING TO 2 X'S A WEEK FOR 4 MORE WEEKS TO PROGRESS RIGHT LE ROM AND STRENGTHEING. PATIENT AGREEABLE WITH RECOMMENDATION. Goals Goal 1:: DECREASE C/O RIGHT KNEE PAIN Goal Time Frame: 4-6 Weeks Goal 2:: IMPROVE STANDING, WALKING, ADL AND WORK FUNCTION Goal Time Frame: 4-6 Weeks Goal Progress: Goal Met Goal 3:: INCREASE FUNCTIONAL ROM OF RIGHT LE Goal Time Frame: 4-6 Weeks Goal 4:: INCREASE FUNCTIONAL STRENGTH OF RIGHT LE Goal Time Frame: 4-6 Weeks Goal 5:: INDEP AND SAFE GAIT ON ALL SURFACES WITH LEAST ASSISTIVE DEVICE. Goal Time Frame: 4-6 Weeks Goal 6:: INDEP HEP Goal Time Frame: 4-6 Weeks Anticipated Interventions Patient/Client Instruction: Educate patient on: Condition, Plan of Care, Risk Factors, Benefits of Fitness Program For the Purpose of:: To improve self management Therapeutic Exercise to Include: Strength training, Flexibilty training, Gait and locomotor training, Passive ROM, Active ROM Comment: *PSORIATIC ARTHRITIS* For the Purpose of:: To decrease pain, To increase ROM, To improve muscle performance and motor function, To improve gait and locomotor functions Cryotherapy (ice pack, ice massage): Yes Vasopneumatic device: Yes For the Purpose of:: To decrease pain, To decrease swelling/inflammation Please do not hesitate to contact me at [phone] by phone or if you have questions or concerns regarding this new plan of care! Sincerely, Cuca Urrutia <Electronically signed by Cuca Urrutia PT, Cert. MDT> 06/17/171813 CC: Neo Tarango MD; Link Harrison DO SO Signed For Medicare only, by signing this I certify the plan of care. Physicians Signature Date CBC W/DIFF, AUTOMATED Collected: 06/10/2017 Status: F Source: [place] 11:35 AM [facility] REPOSITORY TYPE CODE TESTS RESULT OUT OF RANGE REFERENCE UNITS LAB L100.1000 4.4-11.0 K/mm3 Normal WBC 8.4 LAB L100.1200 4.6-6.2 M/mm3 Low RBC 4.42 LAB L100.1300 13.0-16.5 g/dl Normal HGB 13.4 LAB L100.1400 40-54 % Normal HCT 41.1 LAB L100.1500 80-94 fL Normal MCV 93.0 LAB L100.1600 27.0-32.0 pg Normal MCH 30.3 LAB L100.1700 32-36 g/gl Normal MCHC 32.6 LAB L100.1810 11.6-14.6 % Normal RDW CV 13.7 LAB L100.1820 35.1-43.9 fl High RDW SD 45.0 LAB L100.1900 150-450 K/mm3 Normal PLT 284 LAB L100.2000 6.2-12.0 fl Normal MPV 9.9 LAB L100.2100 47-70 % Normal NEUT% 61.9 LAB L100.2200 19-41 % Normal LY% 25.1 LAB L100.2300 0-10 % Normal MONO% 9.4 LAB L100.2400 0-5 % Normal EO% 2.0 LAB L100.2500 0-1 % Normal BASO% 0.5 LAB L100.2550 0.0-0.9 % High IM GRAN % 1.100 Result Comment: IG% - Immature Granulocytes (promyelocytes, myelocytes and metamyelocytes) > 1% indicates that a LEFT SHIFT is Present. LAB L100.2620 2.0-7.7 X10 3/uL Normal Absolute Neut 5.2 LAB L100.2720 0.83-4.51 X10 3/ul Normal Absolute Lymph 2.11 Performed By: #### L100.0100 #### [facility] [address] [facility] [id number] LIVER PROFILE Collected: 06/10/2017 Status: F Source: [place] 11:35 AM [facility] REPOS[facility] TYPE CODE TESTS RESULT OUT OF RANGE REFERENCE UNITS LAB L501.1500 6.4-8.2 g/dL Normal T PROT 7.5 LAB L501.1800 3.2-5.0 g/dL Normal ALB 3.8 LAB L501.1950 2.2-4.2 g/dL Normal GLOB 3.7 LAB L501.4100 15-37 U/L Normal AST 21 LAB L501.4305 45-117 U/L High ALK P 138 LAB L501.4405 16-61 U/L Normal ALT 47 Result Comment: Please note revised ALT reference range effective 2017. LAB L501.4600 0.20-1.00 mg/dL Normal T BILI 0.30 LAB L501.4700 0.00-0.30 mg/dL Normal D BILI 0.10 Performed By: #### L500.3400 #### [facility] [address] [place], [place], [id number] QUANTIFERON TB-GOLD Collected: 06/10/2017 Status: F Source: [place] 11:35 AM [facility] REPOSITORY TYPE CODE TESTS RESULT OUT OF RANGE REFERENCE UNITS LAB L3400.7025 Negative Normal QFT Negative TB GOLD Result Comment: The specimen received for QuantiFERON testing was incubated by the ordering institution. Specific procedures outlined in our Directory of Services and in the package insert for the QuantiFERON Gold (In Tube) test must be followed to enable for proper stimulation of cells for the production of interferon gamma. LAB L3400.7035 . Normal QFT TB Comment POS CRIT Result Comment: To be considered positive a specimen should have a TB Ag minus Nil value greater than or equal to 0.35 IU/mL and in addition the TB Ag minus Nil value must be greater than or equal to 25% of the Nil value. There may be insufficient information in these values to differentiate between some negative and some indeterminate test values. LAB L3400.7045 . IU/mL Normal QFT TB AB 0.03 VALUE LAB L3400.7055 . IU/mL Normal QFT NIL VALUE 0.02 LAB L3400.7065 . IU/mL > Normal QFT MITOGEN 10.00 AIBEL LAB L3400.7075 . IU/mL Normal QFT AG - NIL 0.01 LAB L3400.7085 . Normal QFT TB INTER Comment Result Comment: The QuantiFERON TB Gold (in Tube) assay is intended for use as an aid in the diagnosis of TB infection. Negative results suggest that there is no TB infection. In patients with high suspicion of exposure, a negative test should be repeated. A positive test indicates infection with Mycobacterium tuberculosis. Among individuals without tuberculosis infection, a positive test may be due to exposure to M. kansasii, M. szulgai or M. marinum. On the Internet, go to cdc.gov/tb for further details. Performed at: - [facility] [address] [id number] Ball Mill Operator: Kumar Bryant PhD, Phone: [phone] Performed By: #### L3400.7000 #### [facility] (refer to report for specific site) refer to report for address and phone number ORTHOPEDIC VISIT Observed: 05/25/2017 Status: F Source: [place] REPORT 3:25 PM [facility] REPOSITORY [facility] [address] [place] [address] OFFICE VISIT Date of Service: 05/25/17 MR#: [id number] Acct: [id number] Name: ANGY CARSON Rep #: [id number] : 1960 Provider: Link Harrison DO Age/Sex: 57/M Location: [facility].SMO Status: Signed Intake Intake Visit Reasons: RIGHT KNEE Is patient in pain?: Yes Pain scale (1-10): 2 Allergies No Known Allergies Allergy (Verified 05/25/17 14:04) Medications Levothyroxine [Synthroid] 200 mcg PO DAILY 04/21/17 [History Confirmed 05/25/17] Escitalopram Oxalate [Lexapro] 10 mg PO DAILY 05/05/17 [History Confirmed 05/25/17] Fluticasone 0.05% [Flonase Nasal [place]] 1 spray NASAL DAILY 05/05/17 [History Confirmed 05/25/17] Docusate Sodium [Colace] 100 mg PO BID PRN PRN #10 cap 05/13/17 [Rx Confirmed 05/25/17] ProMETHAzine [Phenergan] 25 mg PO Q4H PRN PRN #10 tab 05/13/17 [Rx Confirmed 05/25/17] Oxycodone CR [Oxycontin] 10 mg PO Q12H #10 tab 05/14/17 [Rx Confirmed 05/25/17] Aspirin E.C. [Ecotrin] 325 mg PO DAILY@0800 #30 tab 05/17/17 [Rx Confirmed 05/25/17] Famotidine 20 mg PO BID #30 tab 05/17/17 [Rx Confirmed 05/25/17] Famotidine [Pepcid] 20 mg PO BID tab 05/17/17 [Rx Confirmed 05/25/17] oxycodone-acetaminophen 5 mg-325 mg tablet 1 - 2 tab PO Q6H PRN 7 Days #60 tab 05/21/17 [Rx Confirmed 05/25/17] enoxaparin 40 mg/0.4 mL subcutaneous syringe 40 mg SC ONCE ml 05/25/17 [History Confirmed 05/25/17] PFSH Medical History Thyroid disease (Chronic) Surgical History History of total right knee replacement (Resolved) s/p mitro valve (Inactive) Social History Smoking Status: Former smoker HPI RIGHT KNEE: Details: ANGY CARSON is a 57 year old M here today for f/u 05/12/17 right TKA. He is doing well, progressing in PT but has concerns about the tightness he feels and the increase in pain with PT. He has a warm red knee but not greater than normal. He states that he is using the anticoags daily with no issue, no antibiotics and decreasing his pain meds. He has an antalgic gait but ambulating without an assistive device. Denies numbness, tingling or other associated symptoms. No calf pain today, no signs of infections. PT was concerned with the SOB he had last week but that has resolved. ROS Const Reports system reviewed and no additional complaints, except as docu Eyes Reports system reviewed and no additional complaints, except as docu ENT Reports system reviewed and no additional complaints, except as docu Card Reports system reviewed and no additional complaints, except as docu Resp Reports system reviewed and no additional complaints, except as docu GI Reports system reviewed and no additional complaints, except as docu Musc Reports joint pain, Reports joint swelling, Reports stiffness, Reports limited joint movement Skin/Breast Reports system reviewed and no additional complaints, except as docu Neuro Yes system reviewed and no additional complaints, except as docu Psych Reports system reviewed and no additional complaints, except as docu Endo Reports system reviewed and no additional complaints, except as docu Ortho Exam Right Knee Contralateral Normal: Yes Swelling: Yes Homans Sign: No 1+: Effusion Popliteal Adenopathy: No KNEE: Alert and oriented 3 in no acute distress but I contact and affect. Intact L1 S1 distributions. Negative Homans no calf pain. Range of motion just short terminal extension to 95 . He has a +1 effusion. No erythema no drainage from the wound significantly improved swelling in the thigh and the calf. Assessment AND Plan Problems 1. Orthopedic aftercare Z47.89 Plan Assessment: After orthopedic status post right total knee arthroplasty. Plan: Patient doing well. Continue to work on range of motion. We will continue to follow the effusion. Patient had early postoperative knee effusion I think from his Lovenox administration he still try to work through that right now. But he does look like he is doing well in terms of motion. I am going that the patient tried to use increased distance. Start aspirin after his Lovenox has been completed. Patient has not requested any pain medication at this time. Follow-up in 4 weeks radiographs Coding Level of Care Code Global Post Op Diagnoses Orthopedic aftercare Z47.89 05/25/17 1525 <Electronically signed by Link Harrison DO> Date Link Harrison DO Cosigner Signature: Date (if applicable) CC: INITAL EVALUATION (1) Observed: 05/22/2017 Status: F Source: [place] - PT 12:26 PM [facility] RE[facility] [address] [place], [place] [address] Fax REHABILITATION SERVICES INITIAL EVALUATION MR#: [id number] Acct: [id number] Name: ANGY CARSON Rep #: [id number] : 1960 57 From: Cuca Urrutia PT, Cert. MDT Referring Dr.: Link Harrison DO Status: REG RCR Insurance: [facility] [place] [id number] SELF PAY INSURANCE Patient's Visit Information ANGY CARSON is a 57 year old M referred to Physical Therapy by DO LAURENT Viveros with a diagnosis of S/P RTKR 05/12/17. Date of Evaluation: 05/22/17 Physical Therapist: Cuca Urrutia - Visit Plan Frequency: 2-3x /Week Duration: 4-6 Weeks Plan: *PSORIATIC ARTHRITIS*. REHAB FOR RIGHT TKR 05/12/[address] HARRISON. *NO RESISTED LEG EXTENSION MACHINES AT ANY POINT IN REHAB. Soft tissue treatments and gentle mobilization to the posterior musculature, patella, and incisions to avoid flexion or patella contracture. ALSO FOCUS ON EDEMA CONTROL. - Subjective Subjective: DX: S/P RIGHT TKR 05/12/17. 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 Disability: NO. Present symptoms: THE WHOLE KNEE. RIGHT PROXIMAL LATERAL THIGH. Present since: YEARS. Pain Scale: WORST 8/10, LEAST 1/10. Currently: 08/04. Commenced as a result of: 1979 FOOTBALL INJURY. 1980 BASKETBALL INJURY. REPEAT INJURIES AND ARTHRITIS SINCE. Symptoms at onset: RIGHT KNEE. Worse: SITTING AND BEING STILL MAKES IT STIFF. INCREASED PAIN IN THE MORNINGS. Better: FEELS BETTER TO MOVE. Disturbed sleep: YES. Previous history/Previous treatment: AT LEAST TWO SURGERIES AND FLUID DRAINED PRIOR TO TKR. Gait: INDEP GAIT WITH FWW SHORT DISTANCES - GETS OUT OF BREATH. Accidents: NO. Unexplained weight loss: NO. Imaging: PRIOR TO SURGERY. PMH: HYPOTHYROIDISM, CELIAC DZ, PSORIATIC ARTHRITIS. OTHER: QUESTIONED PATIENT ABOUT SOB. STATES HE STARTED NOTICING IT IN THE HOSPITAL AND IT HAS NEVER BEEN THIS BAD BEFORE. THINKS OVER TIME IT MIGHT BE GETTING A LITTLE BETTER. STATES IT ISN'T ENOUGH TO CONCERN HIM. STATES HE DOESN'T KNOW IF DOCTOR IS AWARE OF SOB OR NOT. REPORTS THAT HE HAD A TOUGH TIME AT THE HOSPITAL. IN THE HOSPITAL/REHAB ABOUT 5 DAYS. HAD TO DRAW 50CC'S OF BLOOD OUT. STATES HE WASN'T REALLY ABLE TO TOLERATE REHAB. WAS GIVEN HEP SHEET AND CPM. STATES HE IS TRYING TO DO HEEL SLIDES AND USING ELASTIC BAND TO HELP BUT THAT IS ABOUT IT. - Objective THIS PATIENT AMBULATES INDEP'LY INTO PT LIMPING ON THE RIGHT LE WITH A BENT KNEE. HE IS ABLE TO AMBULATE >300 FEET X 2. NO OBVIOUS SOB BUT PATIENT REPORTS INCREASED SOB OVER-ALL SINCE SURGERY. INDEP TRANSFERS SIT TO STAND AND REVERSE, SIT TO SUPINE AND REVERSE WITHOUT UE ASSISTING LEG. INCISION LOOKS TO BE HEALING WELL WITHOUT ANY SIGNS OF OPEN AREAS/DRAINAGE OR EXTREMEM INCREASED TENDERNESS. THERE IS A LITTLE REDNESS AROUND THE INCISION AND INTO THE LEG. STRENGTH: LLE IS WFL, RIGHT LE HIP FLEX 3+/5, KNEE EXT 2/5, KNEE FLEX 2+/5, ANKLE DORSIFLEX 5/5. RIGHT KNEE CIRCUMFERENCE MEASUREMENTS: ANKLE - 12, DISTAL INCISION 16.25, MID KNEE 19, PROX INCISION 19.75. RIGHT KNEE ROM IN SUPINE WITH A HEEL SLIDE = -40 DEG EXT TO 80 DEG FLEX. PATIENT HAS DECREASED HEP KNOWLEDGE. HE HAS NOT BEEN DOING QUAD SETS. SEE TREATMENT BELOW. PATIENT IS PLEASANT AND COOPERATIVE TO WORK WITH. - Goals Goal 1:: DECREASE C/O RIGHT KNEE PAIN Goal Time Frame: 4-6 Weeks Goal 2:: IMPROVE STANDING, WALKING, ADL AND WORK FUNCTION Goal Time Frame: 4-6 Weeks Goal 3:: INCREASE FUNCTIONAL ROM OF RIGHT LE Goal Time Frame: 4-6 Weeks Goal 4:: INCREASE FUNCTIONAL STRENGTH OF RIGHT LE Goal Time Frame: 4-6 Weeks Goal 5:: INDEP AND SAFE GAIT ON ALL SURFACES WITH LEAST ASSISTIVE DEVICE. Goal Time Frame: 4-6 Weeks Goal 6:: INDEP HEP Goal Time Frame: 4-6 Weeks - Rehabilitation Potential Rehabilitation Potential: Good - Anticipated Interventions Patient/Client Instruction: Educate patient on: Condition, Plan of Care, Risk Factors, Benefits of Fitness Program For the Purpose of:: To improve self management Therapeutic Exercise to Include: Strength training, Flexibilty training, Gait and locomotor training, Passive ROM, Active ROM Comment: *PSORIATIC ARTHRITIS* For the Purpose of:: To decrease pain, To increase ROM, To improve muscle performance and motor function, To improve gait and locomotor functions Cryotherapy (ice pack, ice massage): Yes For the Purpose of:: To decrease pain, To decrease swelling/inflammation Thank you for the opportunity to evaluate your patient. For Medicare and Medicare HMO plans, please review the plan of care and approve it. It will need to be FAXED BACK to us at [phone] for Medicare purposes. Please let me know if there are questions or concerns regarding this plan of care. Physician Signature: Date: <Electronically signed by Cuca Urrutia PT, Cert. MDT> 05/22/17 1226 CC: Neo Tarango MD; Link Harrison DO SO Signed For Medicare only, by signing this I certify the plan of care. Physicians Signature Date 12 LEAD ELECTROCARDIOGRAM Observed: 05/22/2017 Status: F Source: [place] 11:58 AM [facility] RE[facility]IT[facility] Cardiovascular Services [address] [place] [address] 12 Lead EKG 05/14/17 1547 MR#: [id number] Acct: [id number] Name: ANGY CARSON Rep #: [id number] : 1960 57 From: Robert Graham MD Attending Dr: Melissa Ordonez Status: DIS IN Ordering Dr: Link Harrison DO Date: 05/14/17 Location: [facility] Sex: M C Admitted: 05/12/17 Test Reason : Blood Pressure : / mmHG Vent. Rate : 110 BPM Atrial Rate : 110 BPM P-R Int : 132 ms QRS Dur : 084 ms QT Int : 328 ms P-R-T Axes : 034 018 017 degrees QTc Int : 443 ms Sinus tachycardia with frequent Premature ventricular complexes Otherwise normal ECG When compared with ECG of 05-MAY-2017 11:30, Premature ventricular complexes are now Present Confirmed by SANTOS CHIN, ROBERT ([id number]), staff editor LUIS A MARS ([id number]) on 05/22/2017 11:57:55 AM Referred By: Link Harrison Confirmed By:ROBERT GRAHAM MD 05/22/17 1158 Date Robert Graham MD CC: Neo Tarango MD Signed DISCHARGE SUMMARY Observed: 05/17/2017 Status: F Source: [place] 1:12 PM [facility] RE[facility]IT[facility] Medical Records Department [address] [place] [address] Discharge Summary 05/14/17 0830 MR#: [id number] Acct: [id number] Name: ANGY CARSON Rep #: [id number] : 1960 57 From: Link Harrison DO PCP: Neo Tarango MD Status: ADM IN Y Location: [facility] [id number] Discharge Summary Date of Admission: 05/12/17 Date of Discharge: 05/17/17 Summary: 57-year-old male admitted to the floor status post right total knee arthroplasty for osteoarthritis. Patient was admitted for 24 hours of IV antibiotics appropriate IV and p.o. pain medication. Patient's DVT prophylaxis to include SCDs teds and 30 mg subcu Lovenox. Patient developed PVCs prior to date of discharge and was held overnight. I was subsequent contacted by the nursing staff due to concerns about redness and erythema to the medial aspect of the side near his abductor block. CT examination had been performed to rule out hematoma and it in the report there was concern that there may have been neck fashion. Patient was prophylactically started on vancomycin and Zosyn. Repeat did not show any abscess formation and but he was continued on antibiotics prophylactically. Patient showed some small low-grade fevers but he was using quite a bit of pain medication early on but never developed a white count and H AND H remained stable. Patient would not be moving his knee very much so I subsequently consulted Dr. Ortiz from [facility] for evaluation. He aspirated 50 cc out the prepatellar bursal region and sent that for culture. It came back negative. At this point time the patient was placed on a CPM machine which seems to have improved some of his range of motion and decrease to swelling. The patient's erythema never really looked like a true cellulitis. It was somewhat blotchy. Initial feeling by Dr. Ortiz and myself was that it may be related to some hematoma formation and soft tissue swelling from the surgery. Again no obvious signs of periprosthetic infection or true cellulitis. Cultures are still pending complete growth. But at this point time they have remained negative. Patient was evaluated by the hospitalist team and they agree with discharge at this point time. Recommendation is for discharge with Augmentin medication. Patient's PVCs have improved with improved pain control and he is show normal electrolyte function. We did stop the patient's Lovenox medication as there is increased chance of hematoma formation with that medication and placed him simply on aspirin with appropriate GI prophylaxis. Assessment: After orthopedics status post right knee total knee arthroplasty. PVC arrhythmia stable. Hematoma formation to right knee. Plan: At this point time we will discharge patient home. Patient will continue with the [place] aggressive range of motion outpatient physical therapy. The patient needs to be moving his knee. He needs to get down to at least 90 of knee flexion. His knee is going to hurt. I think with stopping the Lovenox and starting the aspirin this will improve his overall knee function and decrease the swelling. He needs to continue to use his ARCHIE hose. Patient may shower but do not submerge wound. Keep covered until seen by me. Augmentin medication has been added per the recommendation of the hospitalist team. If there is any changes the patient should follow with me next week. Medications all been sent electronically to [facility]. Patient does not need to use Lovenox at this time. There is any issues please contact me. 05/17/17 1312 <Electronically signed by Link Harrison DO> Date Link Harrison DO Cosigner Signature (if applicable): Date CC: Neo Tarango MD; Link Harrison DO Signed CBC W/DIFF, AUTOMATED Collected: 05/16/2017 Status: F Source: [place] 6:15 AM [facility] REPOS[facility] TYPE CODE TESTS RESULT OUT OF RANGE REFERENCE UNITS LAB L100.1000 4.4-11.0 K/mm3 Normal WBC 9.0 LAB L100.1200 4.6-6.2 M/mm3 Low RBC 3.39 LAB L100.1300 13.0-16.5 g/dl Low HGB 10.1 LAB L100.1400 40-54 % Low HCT 31.7 LAB L100.1500 80-94 fL Normal MCV 93.5 LAB L100.1600 27.0-32.0 pg Normal MCH 29.8 LAB L100.1700 32-36 g/gl Low MCHC 31.9 LAB L100.1810 11.6-14.6 % Normal RDW CV 12.8 LAB L100.1820 35.1-43.9 fl Normal RDW SD 43.7 LAB L100.1900 150-450 K/mm3 Normal PLT 233 LAB L100.2000 6.2-12.0 fl Normal MPV 9.5 LAB L100.2100 47-70 % Normal NEUT% 63.8 LAB L100.2200 19-41 % Normal LY% 23.2 LAB L100.2300 0-10 % High MONO% 10.4 LAB L100.2400 0-5 % Normal EO% 1.7 LAB L100.2500 0-1 % Normal BASO% 0.2 LAB L100.2550 0.0-0.9 % Normal IM GRAN % 0.700 Result Comment: IG% - Immature Granulocytes (promyelocytes, myelocytes and metamyelocytes) > 1% indicates that a LEFT SHIFT is Present. LAB L100.2620 2.0-7.7 X10 3/uL Normal Absolute Neut 5.8 LAB L100.2720 0.83-4.51 X10 3/ul Normal Absolute Lymph 2.09 Performed By: #### L100.0100 #### [facility] [address] [facility] [address] [place], [place], [address] PROTHROMBIN TIME W/INR Collected: 05/16/2017 Status: F Source: [place] 6:15 AM [facility] REPOS[facility]ORY TYPE CODE TESTS RESULT OUT OF RANGE REFERENCE UNITS LAB L300.4150 11.7-14.9 SECONDS Normal PROTIME 14.3 LAB L300.4200 Normal INR 1.2 Performed By: #### L300.3900 #### [facility] [address] [facility] [place], [address] COMPREHENSIVE METABOLIC Collected: 05/16/2017 Status: F Source: [facility] 6:15 AM [facility] REPOS[facility]ORY TYPE CODE TESTS RESULT OUT OF RANGE REFERENCE UNITS LAB L501.0100 70-110 mg/dL Normal GLU 104 LAB L501.1000 7-18 mg/dL Normal BUN 10 LAB L501.1100 0.70-1.30 mg/dL Normal 0.79 CREAT,SERUM Result Comment: The validity of the calculated GFR AND GFRAA in patients over 70 years has not been determined. Clinical correlation is essential. LAB L501.1110 >60 mL/min Normal EST GFR 107 Result Comment: Non- GFR Calc LAB L501.1115 >60 mL/min Normal EST GFR - AA 130 Result Comment: GFR Calc LAB L501.1255 ml/min Normal Estimated CRCL 114.60 LAB L501.1300 10-20 RATIO BUN/CRE Normal 12.6 LAB L501.1500 6.4-8. g/dL 2 T PROT Normal 6.6 LAB L501.1800 3.4-5. g/dL Low 0 ALB 2.5 Result Comment: Please note revised Albumin AND Globulin reference range effective 2017. LAB L501.1950 2.2-4.2 g/dL Normal GLOB 4.1 LAB L501.2000 0.9-2.4 RATIO Low A/G 0.6 LAB L501.2200 8.5-10.1 mg/dL Low CA 8.3 LAB L501.4100 15-37 U/L Normal AST 35 LAB L501.4305 45-117 U/L High ALK P 125 LAB L501.4405 12-78 U/L Normal ALT 48 LAB L501.4600 0.20-1.00 mg/dL Normal T BILI 0.90 LAB L501.5300 136-145 mmol/L Normal NA 138 LAB L501.5600 3.5-5.1 mmol/L Normal K 4.0 LAB L501.5900 98-107 mmol/L Normal CL 101 LAB L501.6100 21.0-32.0 mmol/L Normal CO2 29.0 LAB L501.6200 5-15 Normal GAP 8 Performed By: #### L500.4050, L501.2300, L501.5200 #### [facility] [address] [place], [place], [id number] PHOSPHORUS Collected: 05/16/2017 Status: F Source: [place] 6:15 AM [facility] REPOS[facility]ORY TYPE CODE TESTS RESULT OUT OF RANGE REFERENCE UNITS LAB L501.2300 2.5-4.9 mg/dL Normal PHOS 3.1 Performed By: #### L500.4050, L501.2300, L501.5200 #### [facility] [address] [facility] [place], [place], [id number] MAGNESIUM Collected: 05/16/2017 Status: F Source: [place] 6:15 AM [facility] RE[facility] TYPE CODE TESTS RESULT OUT OF RANGE REFERENCE UNITS LAB L501.5200 1.6-2.6 mg/dL Normal MG 2.1 Result Comment: Please note revised Magnesium reference range effective 2017. Performed By: #### L500.4050, L501.2300, L501.5200 #### [facility] [address] [place], [address] Observed: 05/15/2017 Status: F Source: [place] CULTURE, BLOOD (WB) 5:16 PM [facility] REPOSITORY Has pt arrived? Y BC No growth in 5 days. Performed By: #### M200.1000 #### [facility] [address] [place], [address] Observed: 05/15/2017 Status: F Source: [place] CULTURE, BLOOD (WB) 5:06 PM [facility] REPOSITORY Has pt arrived? Y BC No growth in 5 days. Performed By: #### M200.1000 #### [facility] [address] [place], [place], [address] VENOUS DUPLEX LOWER Observed: 05/15/2017 Status: F Source: [place] EXTREMITY 4:59 PM [facility] REPOSITORY [facility] Cardiovascular Services [address] [place] [address] Venous Duplex US, Unilateral 05/15/17 0820 MR#: [id number] Acct: [id number] Name: ANGY CARSON Rep #: [id number] : 1960 57 From: Jaya Bowman MD Attending Dr: Melissa Ordonez Status: ADM IN Ordering Dr: Nathalia Pradhan Date: 05/14/17 Location: [facility]3 Sex: M C Admitted: 05/12/17 Reason For Study: swelling RIGHT GSV is normal. CFV is compressible, spontaneous, phasic, competent and demonstrates normal augmentation. FV is compressible, spontaneous, phasic, competent and demonstrates normal augmentation. POP V is compressible, spontaneous, phasic, competent and demonstrates normal augmentation. T/P Trunk is compressible. PTV is compressible. RT PerV is compressible. Procedure Exam performed portable in patient room. The exam was diagnostic. A preliminary report was called and/or faxed to Akanks[facility] ADKINS. Interpretation Summary There is no evidence of right lower extremity deep vein thrombosis. Right greater saphenous vein appears patent and compressible segmentally. Ordering Physician: Nathalia Pradhan Referring Physician: Link Harrison Performed By: Martin Mcclendon RVT 05/15/171657 Date Jaya Bowman MD CC: Nathalia Pradhan; Neo Tarango MD Date Dictated: 05/15/17819 Date Transcribed: 05/15/171657 Rough Rice Tender: Signed CBC W/DIFF, AUTOMATED Collected: 05/15/2017 Status: F Source: [place] 4:06 PM [facility] REPOS[facility]ORY TYPE CODE TESTS RESULT OUT OF RANGE REFERENCE UNITS LAB L100.1000 4.4-11.0 K/mm3 Normal WBC 9.3 LAB L100.1200 4.6-6.2 M/mm3 Low RBC 3.48 LAB L100.1300 13.0-16.5 g/dl Low HGB 10.6 LAB L100.1400 40-54 % Low HCT 32.5 LAB L100.1500 80-94 fL Normal MCV 93.4 LAB L100.1600 27.0-32.0 pg Normal MCH 30.5 LAB L100.1700 32-36 g/gl Normal MCHC 32.6 LAB L100.1810 11.6-14.6 % Normal RDW CV 12.5 LAB L100.1820 35.1-43.9 fl Normal RDW SD 41.3 LAB L100.1900 150-450 K/mm3 Normal PLT 193 LAB L100.2000 6.2-12.0 fl Normal MPV 9.8 LAB L100.2100 47-70 % High NEUT% 71.4 LAB L100.2200 19-41 % Low LY% 14.0 LAB L100.2300 0-10 % High MONO% 12.3 LAB L100.2400 0-5 % Normal EO% 1.3 LAB L100.2500 0-1 % Normal BASO% 0.1 LAB L100.2550 0.0-0.9 % Normal IM GRAN % 0.900 Result Comment: IG% - Immature Granulocytes (promyelocytes, myelocytes and metamyelocytes) > 1% indicates that a LEFT SHIFT is Present. LAB L100.2620 2.0-7.7 X10 3/uL Normal Absolute Neut 6.6 LAB L100.2720 0.83-4.51 X10 3/ul Normal Absolute Lymph 1.30 Performed By: #### L100.0100 #### [facility] [address] [place], [address] LACTIC ACID Collected: 05/15/2017 Status: F Source: [place] 4:06 PM [facility] REPOS[facility]ORY Order Comment: Yes/No query for Sepsis Lactate Rule Y TYPE CODE TESTS RESULT OUT OF RANGE REFERENCE UNITS LAB L503.6005 0.4-2.0 mmol/L Normal LACTIC ACID 1.0 Performed By: #### L503.6005 #### [facility] [address] [place], [address] CHEST PA AND LATERAL Observed: 05/15/2017 Status: F Source: [place] 3:56 PM [facility] REPOSITORY [facility] Imaging Services [address] [place] [address] Chest PA and Lateral MR#: [id number] Acct: [id number] Name: ANGY CARSON Rep #: [id number] : 1960 M 57 From: Fredis Sahu MD PCP: Neo Tarango MD Status: ADM IN Study: Chest PA and Lateral Date of Exam: 05/15/17 Exam# [id number] Ordering Dr: Malcom Ordonez DO STUDY: X-RAY CHEST REASON FOR EXAM: Male, 57 years old. ABNORMAL EKG, AFIB POST OP RIGHT TOTAL KNEE REPLACEMENT TECHNIQUE: Frontal and lateral views of the chest. COMPARISON: 11.15.12 FINDINGS: There is a rectangular sharply demarcated mass in the right lower lobe. This is new since the prior study. CT chest could further evaluate. This is only seen on one projection. The lungs are clear and expanded. There is no demonstrated pleural abnormality. Normal size heart. Normal mediastinum and roger. Normal visualized pulmonary arteries. Normal visualized aortic arch and descending thoracic aorta. Normal visualized thoracic spine. Normal visualized ribs, clavicles, and shoulders. There is no demonstrated abnormality of the visualized soft tissue structures of the upper abdomen. RAD/Chest PA and Lateral IMPRESSION: There is a rectangular sharply demarcated mass in the right lower lobe. This is new since the prior study. CT chest could further evaluate. Electronically Signed: Fredis Sahu MD at 16:46 EST , Service support , CC: Melissa Ordonez; Neo Tarango MD Rough Rice Tender: Signed EXTREMITY LOWER Observed: 05/15/2017 Status: F Source: [place] WITHOUT CONTRA 3:49 PM [facility] REPOSITORY [facility] Imaging Services [address] [place] [address] Extremity Lower without Contra MR#: [id number] Acct: [id number] Name: ANGY CARSON Rep #: [id number] : 1960 M 57 From: Fredis Sahu MD PCP: Neo Tarango MD Status: ADM IN Study: Extremity Lower without Contra Date of Exam: 05/15/17 Exam# [id number] Ordering Dr: Malcom Ordonez DO STUDY: CT RIGHT KNEE WITHOUT CONTRAST REASON FOR EXAM: Male, 57 years old. INCREASED PAIN X SWELLING. TOTAL RIGHT KNEE 4 DAYS AGO RADIATION DOSAGE (If Supplied By Facility): CTDIvol = ( 18.51 ) mGy, DLP = ( 983.51 ) mGycm TECHNIQUE: Transaxial CT imaging of the knee was performed. Coronal and sagittal images were reformatted. COMPARISON: None. FINDINGS: Soft tissue edema. Total knee arthroplasty. Soft tissue air is visualized. There is a suprapatellar effusion containing air and fluid. CT/Extremity Lower without Contra IMPRESSION: There are postoperative changes in the suprapatellar effusions status post knee arthroplasty Electronically Signed: Fredis Sahu MD at 17:09 EST , Service support , CC: Melissa Ordonez; Neo Tarango MD Rough Rice Tender: Signed CONSULTATION Observed: 05/15/2017 Status: F Source: [place] 12:34 PM [facility] RE[facility]ITORY [facility] Medical Records Department [address] [place] [address] Consultation 05/15/17 1223 MR#: [id number] Acct: [id number] Name: ANGY CARSON Rep #: [id number] : 1960 57 From: Cruz Ortiz MD PCP: Neo Tarango MD Status: ADM IN Location: [place] [id number] Reason for Consult Date of Consultation: 05/15/17 Reason for Consultation: painful Right TKA. Dr Harrison History of Present Illness: The patient is a 57 year old M history of psoriasis presents today with increasing pain after right total knee replacement. Patient has erythema and swelling of the anterior knee. Workup was initiated last night was noted to have some postoperative air on x-rays. Was sent for a CT scan and noted to have air in the musculature consistent with postoperative changes versus necrotizing fasciitis. Dr. Harrison evaluated the patient this morning and requested my opinion after initially ruling out necrotizing fasciitis. Patient does not have symptoms of malaise but does have increased pain in the right knee. Vitals currently are afebrile. Difficulty with knee range of motion. Tenderness around the thigh from the tourniquet. Pain with weightbearing. Antibiotics were initiated overnight patient does note some decreased redness. Past Medical History Allergies No Known Allergies Allergy (Verified 04/21/17 08:56) Home Medications: Ambulatory Orders Medication Instructions Recorded Levothyroxine [Synthroid] 200 mcg PO DAILY 04/21/17 Acetaminophen [Tylenol Extra 500 mg PO Q6H PRN PRN 05/05/17 Surgical History: total knee arthroplasty - R 05-12-2017 Lives: Spouse/ Significant Other Smoking Status: Former smoker Tobacco Use: Non-smoker Alcohol: None Drugs: None - *Family History Maternal History Items: No pertinent history Review of Systems Constitutional: Denies: Chills, Fever, Weight Change HEENT: Denies: Head Aches, Sinus Congestion, Sinus Drainage Cardiovascular: Denies: Chest Pain, Palpitations Respiratory: Denies: Cough, Shortness of breath at rest, Sputum production Gastrointestinal: Denies: Abdominal Pain, Nausea, Vomiting Genitourinary: Denies: Dysuria Musculoskeletal: Reports: - - See HPI Skin: Denies: Rash, Wounds Neurological: Denies: Numbness, Tingling, Focal weakness Psychiatric: Denies: Anxiety, Depression, Homicidal Ideations, Suicidal Ideations Hematologic/ Lymphatic: Denies: Easy Bruising, Easy Bleeding Patient Problems: Active and Suspected Problems (Last Reviewed 04/23/17 @ 10:23 by Kylie Mcdonnell) PVC (premature ventricular contraction) (Acute) Objective: CT scan and radiographs were reviewed showing a press-fit total knee replacement. There are air bubbles noted in the CT scan consistent with the patient's abductor canal block and surgical intervention. - Physical Exam General: Alert, Oriented x3, Cooperative Extremities: - - Left knee shows erythema around the incision and tracking up medially. There is most is noted in the medial thigh around the area of the tourniquet. Neurovascular intact distally to sensation and motor. There is fluctuance noted over the anterior knee. Scar is intact with overlying sealant. Patient has pain with knee range of motion. Patient reports majority of his pain on palpation is over the anterior knee. Vital Signs Temp Pulse Resp BP Pulse Ox 98.4 F 94 18 121/65 H 97 05/15/17 08:07 05/15/17 10:29 05/15/17 08:07 05/15/17 08:07 05/15/17 08:07 Oxygen Flow Rate 2 Oxygen Delivery Method Room Air Weight: 256 lb 2.834 oz Body Mass Index (BMI) 34.7 Intake and Output for Last 24 Hours Intake Total 1733 / 1733 2420 / 2420 1492 / 1492 Output Total 1100 / 1100 750 / 750 1200 / 1200 Balance 633 / 633 1670 / 1670 292 / 292 Laboratory Tests Past 24 Hrs WBC RBC Hgb Hct MCV MCH MCHC RDW RDW Differential Plt Count MPV ESR Sodium 135 L 134 L WBC RBC Assessment/Plan Active and Suspected Problems (Last Reviewed 04/23/17 @ 10:23 by Kylie Mcdonnell) PVC (premature ventricular contraction) (Acute) Postop day 3 right total knee replacement Based on physical examination and postoperative course patient's ESR and CRP are elevated however he is 2 days from surgery. White count is remained stable. Patient is currently afebrile the erythema seems to be more consistent with local swelling and likely underlying hematoma. I did aspirate the superficial tissues through an area of nonerythematous skin after sterile prep and was able to obtain 50 cc of dark blood. Patient stated that after the 50 cc removed he had significant relief of his pain the swelling was also decreased. At this time I think we have effectively ruled out necrotizing fasciitis is patient is not progressively deteriorated in fact erythema appears to be improving. I will send the hematoma for culture. This was not intra-articular fluid. Do think it is appropriate to continue with antibiotic treatment for cellulitis however it is likely the erythema as a result of the local swelling of the tissues. Patient can follow-up with Dr. Harrison as previously planned for his postoperative course. Procedure: Fluctuant area on the anterior knee was palpated. The sealant prevented drainage from the incision so I consented the patient for an aspiration which could lead to infection patient demonstrated understanding and not in this case doing out infection was our main goal. Chlorhexidine and alcohol were used to prep the area. Sterile gloves were placed. Sterile syringe and needle were used and 50 cc of dark blood colored fluid were aspirated. A Band-Aid was placed. Patient tolerated procedure well and stated he improved pain after removal of the fluid. Fluid was then sent for culture. [facility] Office: 05/15/17 1234 <Electronically signed by Cruz Ortiz MD> Date Cruz Ortiz MD Cosigner Signature (if applicable): Date CC: Neo Tarango MD; Cruz Ortiz MD; Hari Coker M.D. Signed Observed: 05/15/2017 Status: F Source: [place] CULTURE, BODY FLUID 12:25 PM [facility] REPOSITORY Interface Comments: COLLECTED FROM RT KNEE BY Reason for Laboratory Test CULTURE List Antibiotics Last 48 Hours? vanc/zosyn List Antibiotics to be Started? SAME Comments: hematoma Gram Stain Centrifuged Specimen? Culture performed on centrifuged specimen Gram Stain 4+ Red Blood Cells 3+ White Blood Cells No organisms seen Body Fluid Cult NO GROWTH IN 14 DAYS Cult, Anaerobic No growth in 5 days. Performed By: #### M100.1300 #### [facility] [address] [place], [place], [address] CBC-COMPLETE BLOOD CNT Collected: 05/15/2017 Status: F Source: [place] NO DIFF 5:42 AM [facility] REPOSITORY TYPE CODE TESTS RESULT OUT OF RANGE REFERENCE UNITS LAB L100.1000 4.4-11.0 K/mm3 Normal WBC 10.6 LAB L100.1200 4.6-6.2 M/mm3 Low RBC 3.60 LAB L100.1300 13.0-16.5 g/dl Low HGB 11.0 LAB L100.1400 40-54 % Low HCT 33.7 LAB L100.1500 80-94 fL Normal MCV 93.6 LAB L100.1600 27.0-32.0 pg Normal MCH 30.6 LAB L100.1700 32-36 g/gl Normal MCHC 32.6 LAB L100.1810 11.6-14.6 % Normal RDW CV 12.6 LAB L100.1820 35.1-43.9 fl Normal RDW SD 41.6 LAB L100.1900 150-450 K/mm3 Normal PLT 197 LAB L100.2000 6.2-12.0 fl Normal MPV 9.8 Performed By: #### L100.0500 #### [facility] [address] [place], [place], [id number] BASIC METABOLIC Collected: 05/15/2017 Status: F Source: [place] PROFILE (BMP) 5:42 AM [facility] REPOSITORY TYPE CODE TESTS RESULT OUT OF RANGE REFERENCE UNITS LAB L501.0100 70-110 mg/dL Normal GLU 110 Result Comment: Fasting Glucose result from 110 to <126 mg/dL suggests IMPAIRED HOMEOSTASIS per A.D.A. criteria. LAB L501.1000 7-18 mg/dL Normal BUN 11 LAB L501.1100 0.70-1.30 mg/dL Normal CREAT,SERUM 0.79 Result Comment: The validity of the calculated GFR AND GFRAA in patients over 70 years has not been determined. Clinical correlation is essential. LAB L501.1110 >60 mL/min Normal EST GFR 108 Result Comment: Non- GFR Calc LAB L501.1115 >60 mL/min Normal EST GFR - AA 130 Result Comment: GFR Calc LAB L501.1255 ml/min Normal Estimated CRCL 114.60 LAB L501.1300 10-20 RATIO BUN/CRE Normal 13.9 LAB L501.2200 8.5-10 mg/dL Low .1 CA 8.2 LAB L501.5300 136-14 mmol/L 5 NA Normal 136 LAB L501.5600 3.5-5. mmol/L 1 K Normal 4.4 LAB L501.5900 98-107 mmol/L CL Normal 102 LAB L501.6100 21.0-3 mmol/L 2.0 CO2 Normal 29.0 LAB L501.6200 5-15 GAP Normal 5 Performed By: #### L500.2500 #### [facility] [address] [facility] [place], [address] CRP Collected: 05/15/2017 Status: F Source: [place] 5:42 AM [facility] REPOSITORY Order Comment: Comments: from previous draw TYPE CODE TESTS RESULT OUT OF RANGE REFERENCE UNITS LAB L501.6710 0.0-3.0 mg/L High 226.00 C-REACTIVE PROT Result Comment: C-Reactive Protein (CRP) provides useful information for the diagnosis, therapy and monitoring of inflammatory processes and associated diseases. For the evaluation of Relative Risk for Cardiovascular Disease, a High Sensitivity CRP (HSCRP) should be ordered. Performed By: #### L501.6710 #### [facility] [address] [facility] [place], [address] ERYTHROCYTE SED RATE Collected: 05/15/2017 Status: F Source: [place] 5:42 AM [facility] REPOSITORY Order Comment: Comments: from previous draw TYPE CODE TESTS RESULT OUT OF RANGE REFERENCE UNITS LAB L102.0000 0-20 mm/hr High SED RATE 60 Performed By: #### L101.9900 #### [facility] [address] [facility] [place], [address] EXTREMITY LOWER Observed: 05/14/2017 Status: F Source: [place] WITHOUT CONTRA 11:57 PM [facility] REPOSITORY [facility] Imaging Services [address] [place] [address] Extremity Lower without Contra MR#: [id number] Acct: [id number] Name: ANGY CARSON Rep #: [id number] : 1960 57 From: Mathew Samson MD PCP: Neo Tarango MD Status: ADM IN Study: Extremity Lower without Contra Date of Exam: 05/14/17 Exam# [id number] Ordering Dr: Nathalia Pradhan STUDY: CT RIGHT KNEE WITHOUT CONTRAST REASON FOR EXAM: Male, 57 years old. Pain and swelling in the right knee RADIATION DOSAGE (If Supplied By Facility): CTDIvol = ( 15.35 ) mGy, DLP = ( 980.54 ) mGycm TECHNIQUE: Transaxial CT imaging of the knee was performed. Coronal and sagittal images were reformatted. COMPARISON: None. FINDINGS: There is a right knee arthroplasty in good alignment. There is no evidence of fracture. There is marked subcutaneous soft tissue swelling at the anterior aspect in the suggesting edema may be due to cellulitis. Air bubbles are seen in the vastus medialis and vastus intermedius muscles may be due to recent surgery. Follow-up is recommended in 6 to 12 hours to ensure stability and to exclude necrotizing fasciitis. There is a fluid collection in the knee joint containing air bubbles may represent an infectious process. The soft tissues are unremarkable. CT/Extremity Lower without Contra IMPRESSION: There is marked subcutaneous soft tissue swelling at the anterior aspect in the suggesting edema may be due to cellulitis. Air bubbles are seen in the vastus medialis and vastus intermedius muscles may be due to recent surgery. Follow-up is recommended in 6 to 12 hours to ensure stability and to exclude necrotizing fasciitis. There is a fluid collection in the knee joint containing air bubbles may represent an infectious process. Electronically Signed: Mathew Samson MD at 2:31 EST Tel , Service support , CC: Nathalia Pradhan; Neo Tarango MD Rough Rice Tender: Signed BASIC METABOLIC Collected: 05/14/2017 Status: F Source: [place] PROFILE (BMP) 7:38 PM [facility] TYPE CODE TESTS RESULT OUT OF RANGE REFERENCE UNITS LAB L501.0100 70-110 mg/dL High GLU 119 Result Comment: Fasting Glucose result from 110 to <126 mg/dL suggests IMPAIRED HOMEOSTASIS per A.D.A. criteria. LAB L501.1000 7-18 mg/dL Normal BUN 12 LAB L501.1100 0.70-1.30 mg/dL Normal CREAT,SERUM 0.96 Result Comment: The validity of the calculated GFR AND GFRAA in patients over 70 years has not been determined. Clinical correlation is essential. LAB L501.1110 >60 mL/min Normal EST GFR 86 Result Comment: Non- GFR Calc LAB L501.1115 >60 mL/min Normal EST GFR - AA 104 Result Comment: GFR Calc LAB L501.1255 ml/min Normal Estimated CRCL 94.31 LAB L501.1300 10-20 RATIO Normal BUN/CRE 12.5 LAB L501.2200 8.5-10 mg/dL Low .1 CA 8.4 LAB L501.5300 136-14 mmol/L Low 5 NA 135 LAB L501.5600 3.5-5. mmol/L Normal 1 K 3.7 LAB L501.5900 98-107 mmol/L Normal CL 99 LAB L501.6100 21.0-3 mmol/L Normal 2.0 CO2 28.0 LAB L501.6200 5-15 Normal GAP 8 Performed By: #### L500.2500, L501.5200 #### [facility] [address] [facility] [place], [address] MAGNESIUM Collected: 05/14/2017 Status: F Source: [place] 7:38 PM [facility] REPOSITORY TYPE CODE TESTS RESULT OUT OF RANGE REFERENCE UNITS LAB L501.5200 1.6-2.6 mg/dL Normal MG 1.9 Result Comment: Please note revised Magnesium reference range effective 2017. Performed By: #### L500.2500, L501.5200 #### [facility] [address] [facility] [place], [place], [address] GLUCOSE Collected: 05/14/2017 Status: F Source: [place] 7:38 PM [facility] REPOSITORY TYPE CODE TESTS RESULT OUT OF RANGE REFERENCE UNITS LAB L501.0100 70-110 mg/dL High GLU 118 Result Comment: Fasting Glucose result from 110 to <126 mg/dL suggests IMPAIRED HOMEOSTASIS per A.D.A. criteria. Performed By: #### L501.0100, L501.1000, L501.1100, L501.1300, L501.5300, L501.5600, L501.5900, L501.6100, L501.6200 #### [facility] [address] [facility] [place], [address] #### L3100.9600 #### [facility] (refer to report for specific site) refer to report for address and phone number BUN Collected: 05/14/2017 Status: F Source: [place] 7:38 PM [facility] REPOSITORY TYPE CODE TESTS RESULT OUT OF RANGE REFERENCE UNITS LAB L501.1000 7-18 mg/dL Normal BUN 11 Performed By: #### L501.0100, L501.1000, L501.1100, L501.1300, L501.5300, L501.5600, L501.5900, L501.6100, L501.6200 #### [facility] [address] [place], [place], [id number] #### L3100.9600 #### [facility] (refer to report for specific site) refer to report for address and phone number CREATININE, SERUM Collected: 05/14/2017 Status: F Source: [place] 7:38 PM [facility] REPOSITORY TYPE CODE TESTS RESULT OUT OF RANGE REFERENCE UNITS LAB L501.1100 0.70-1.30 mg/dL Normal 0.96 CREAT,SERUM Result Comment: The validity of the calculated GFR AND GFRAA in patients over 70 years has not been determined. Clinical correlation is essential. Performed By: #### L501.0100, L501.1000, L501.1100, L501.1300, L501.5300, L501.5600, L501.5900, L501.6100, L501.6200 #### [facility] [place], [address] #### L3100.9600 #### [facility] (refer to report for specific site) refer to report for address and phone number BUN/CREAT RATIO Collected: 05/14/2017 Status: F Source: [place] 7:38 PM [facility] REPOSITORY TYPE CODE TESTS RESULT OUT OF RANGE REFERENCE UNITS LAB L501.1300 10-20 RATIO Normal BUN/CRE 11.5 Performed By: #### L501.0100, L501.1000, L501.1100, L501.1300, L501.5300, L501.5600, L501.5900, L501.6100, L501.6200 #### [facility] [address] [facility] [place], [address] #### L3100.9600 #### [facility] (refer to report for specific site) refer to report for address and phone number SODIUM LEVEL Collected: 05/14/2017 Status: F Source: [place] 7:38 PM [facility] REPOSITORY TYPE CODE TESTS RESULT OUT OF RANGE REFERENCE UNITS LAB L501.5300 136-145 mmol/L Low NA 134 Performed By: #### L501.0100, L501.1000, L501.1100, L501.1300, L501.5300, L501.5600, L501.5900, L501.6100, L501.6200 #### [facility] [place] [id number] #### L3100.9600 #### [facility] (refer to report for specific site) refer to report for address and phone number POTASSIUM Collected: 05/14/2017 Status: F Source: [place] 7:38 PM [facility] REPOSITORY TYPE CODE TESTS RESULT OUT OF RANGE REFERENCE UNITS LAB L501.5600 3.5-5.1 mmol/L Normal K 3.8 Performed By: #### L501.0100, L501.1000, L501.1100, L501.1300, L501.5300, L501.5600, L501.5900, L501.6100, L501.6200 #### [facility] [address] [place] [address], [id number] #### L3100.9600 #### [facility] (refer to report for specific site) refer to report for address and phone number CHLORIDE Collected: 05/14/2017 Status: F Source: [place] 7:38 PM [facility] REPOSITORY TYPE CODE TESTS RESULT OUT OF RANGE REFERENCE UNITS LAB L501.5900 98-107 mmol/L Normal CL 99 Performed By: #### L501.0100, L501.1000, L501.1100, L501.1300, L501.5300, L501.5600, L501.5900, L501.6100, L501.6200 #### [facility] [place], [address] #### L3100.9600 #### [facility] (refer to report for specific site) refer to report for address and phone number CARBON DIOXIDE Collected: 05/14/2017 Status: F Source: [place] 7:38 PM [facility] REPOSITORY TYPE CODE TESTS RESULT OUT OF RANGE REFERENCE UNITS LAB L501.6100 21.0-32.0 mmol/L Normal CO2 29.0 Performed By: #### L501.0100, L501.1000, L501.1100, L501.1300, L501.5300, L501.5600, L501.5900, L501.6100, L501.6200 #### [facility] [place], [address] #### L3100.9600 #### [facility] (refer to report for specific site) refer to report for address and phone number ANION GAP Collected: 05/14/2017 Status: F Source: [place] 7:38 PM [facility] REPOSITORY TYPE CODE TESTS RESULT OUT OF RANGE REFERENCE UNITS LAB L501.6200 5-15 Normal GAP 6 Performed By: #### L501.0100, L501.1000, L501.1100, L501.1300, L501.5300, L501.5600, L501.5900, L501.6100, L501.6200 #### [facility] [address] [place] [address]. [place], [address] #### L3100.9600 #### [facility] (refer to report for specific site) refer to report for address and phone number CALCIUM IONIZED Collected: 05/14/2017 Status: F Source: [place] 7:38 PM [facility] REPOSITORY TYPE CODE TESTS RESULT OUT OF RANGE REFERENCE UNITS LAB L3100.9600 4.5-5.6 mg/dL Normal IONIZED CA 5.3 Result Comment: Performed at: [facility] [id number] [place] Operator: Kumar Bryant PhD, Phone: [phone] Performed By: #### L501.0100, L501.1000, L501.1100, L501.1300, L501.5300, L501.5600, L501.5900, L501.6100, L501.6200 #### [facility] [address] [place], [address] #### L3100.9600 #### [facility] (refer to report for specific site) refer to report for address and phone number CONSULTATION Observed: 05/14/2017 Status: F Source: [place] 7:07 PM [facility] REPOSITORY [facility] Medical Records Department [address] [place] [address] Consultation 05/14/17 1852 MR#: [id number] Acct: [id number] Name: ANGY CARSON Rep #: [id number] : 1960 57 From: Hari Coker MD PCP: Neo Tarango MD Status: ADM IN Location: [facility] [place]771-6 Problem List (1) PVC (premature ventricular contraction) Status: Acute Reason for Consult Date of Consultation: 05/14/17 Reason for Consultation: Frequent PVC. History of Present Illness: Patient is a 57 years old male who had right total knee arthroplasty on 05/12/17. He was recovering uneventfully, but noted to have irregular heart beats per nursing staff. EKG obtained, showed frequent PVC. He has history of ablation of heart, probably with atrial fibrillation about 10 years ago, but patient is not sure exactly what it was. Apparently, he has been doing well since then, and follows special diet cook in [place] regularly. He denied of any chest pain, dizziness, or palpitation with PVC's. Past Medical History Allergies No Known Allergies Allergy (Verified 04/21/17 08:56) Home Medications: Ambulatory Orders Medication Instructions Recorded Levothyroxine [Synthroid] 200 mcg PO DAILY 04/21/17 Acetaminophen [Tylenol Extra 500 mg PO Q6H PRN PRN 05/05/17 Smoking Status: Former smoker Alcohol: None Drugs: None - *Family History Maternal History Items: No pertinent history Review of Systems Comment: ROS: In general: Patient has been in good health, denied of any constitutional symptoms, such as weight loss, or gain, fever, chills, or night sweats. Patient denied of any profound fatigue. HEENT: Unremarkable. Patient denied of any dizziness, chronic headache, blurred vision, double vision, dry mouth, or nasal congestion. CV/respiratory: There is no exertional shortness of breath, chest pain, palpitation, wheezing, cough, claudication, cold feet, or peripheral edema. GI: Patient denied any abdominal pain, nausea, vomiting, diarrhea, constipation, melena, or hematochezia. : Patient denied any significant urinary symptoms. Neurology: Unremarkable. There is no history of seizure as an adult. Psychological: Unremarkable. . Endocrine: Unremarkable. Musculoskeletal: Unremarkable. Patient Problems: Active and Suspected Problems (Last Reviewed 04/23/17 @ 10:23 by Kylie Mcdonnell) PVC (premature ventricular contraction) (Acute) Objective: In general, patient is a well-nourished and developed adult. HEENT: Head is atraumatic, and normocephalic. Pupils are equal, round, and reactive to light and accommodations. Neck is supple. There is no lymphadenopathy, or thyromegaly. Oral mucosa is pink, and moist. There are no lesions. Heart: Auscultation shows regular rate with frequent ectopic beats. No murmur. Lungs: Lungs are clear to auscultation bilaterally. There is no wheezing, or crackles. Abdomen: Abdominal wall is non-tender, and non-distended. There is no palpable mass or organomegaly. Normoactive bowel sounds are present. Extremities: There is no cyanosis or clubbing. Peripheral pulses are palpable. There is no edema. Right knee is swollen after surgery. Skin: There are no any skin discoloration or lesions. Neurological: CN II - XII are intact. Sensory and motor functions are grossly normal with no obvious deficit. Cerebellar functions are within normal range. Gait was not tested. - Physical Exam Vital Signs Temp Pulse Resp BP Pulse Ox 101 F H 122 H 16 127/73 H 93 05/14/17 14:30 05/14/17 17:43 05/14/17 14:30 05/14/17 14:30 05/14/17 14:30 Oxygen Flow Rate 2 Oxygen Delivery Method Room Air Weight: 256 lb 2.834 oz Body Mass Index (BMI) 34.7 Intake and Output for Last 24 Hours Intake Total 1999 1733 / 1733 2420 / 2420 Output Total 1100 / 1100 750 / 750 Balance 1999 633 / 633 1670 / 1670 Laboratory Tests Past 24 Hrs WBC 10.8 RBC 3.89 L Hgb 11.9 L Hct 36.3 L MCV 93.3 MCH 30.6 MCHC 32.8 Assessment/Plan Active and Suspected Problems (Last Reviewed 04/23/17 @ 10:23 by Kylie Mcdonnell) PVC (premature ventricular contraction) (Acute) Patient is a 57 years old male who had right total knee arthroplasty on 05/12/17. He was recovering uneventfully, but noted to have irregular heart beats per nursing staff. EKG obtained, showed frequent PVC. He has history of ablation of heart, probably with atrial fibrillation about 10 years ago, but patient is not sure exactly what it was. Apparently, he has been doing well since then, and follows special diet cook in [place] regularly. He denied of any chest pain, dizziness, or palpitation with PVC's. #1 Frequent PVC. He is asymptomatic, but it is concerning that he had ablation treatment for condition that is not entirely clear. Check electrolytes including BMP, ionized calcium, and magnesium. Monitor telemetry. If he remain stable with no sustained ventricular tachycardia, and no additional symptoms, he can be discharged and follow-up with his special diet cook in [place] as outpatient. Consider cardiology consult if his symptoms worsen. Thank you for consultation. We will follow. Code Visit Inpatient E AND M: 08368 Init Hosp L2 05/14/171906 <Electronically signed by Hari Coker MD> Date Hari Coker MD Cosigner Signature (if applicable): Date CC: Neo Tarnago MD; Hari Coker M.D. Signed MAGNESIUM Collected: 05/14/2017 Status: F Source: [place] 4:38 PM [facility] REPOSITORY TYPE CODE TESTS RESULT OUT OF RANGE REFERENCE UNITS LAB L501.5200 1.6-2.6 mg/dL Normal MG 2.0 Result Comment: Please note revised Magnesium reference range effective 2017. Performed By: #### L501.5200 #### [facility] [address] [place], [address] DISCHARGE INSTRUCTION Observed: 05/14/2017 Status: F Source: [place] 8:22 AM [facility] REPOSITORY [facility] Medical Records Department [address] [place] [address] Instructions for Home/Discharge Instructions 05/13/17 1517 MR#: [id number] Acct: [id number] Name: ANGY CARSON Rep #: [id number] : 1960 57 From: Link Harrison DO PCP: Neo Tarango MD Status: ADM IN Discharge Activity: Return to Normal Activity, May not drive while taking narcotic pain medications., May Shower, Use Walker May shower in (days): 2 May resume sexual activity in: No Restrictions Ice area for (Minutes): 20 - Use Polar Care as needed Weight Bearing Status: Weight bearing as tolerated Elevate: Right Leg Additional Activity Instructions:: Work on aggressive range of motion and flexion. Rest with something underneath the heel not underneath the calf or need to gain better extension. Call your doctor if your incision/area has: Continuous Slow Oozing, Sudden Increased Bleeding, Increased Pain/ Swelling, Increased Redness, Foul Smelling Discharge, Swelling at the incision site Call your doctor if you observe: Fever of 101 or Higher, Coldness, Increased Pain, Numbness or Tingling, Change in Color, Inability to urinate, Inability to have a bowel movement, Using more than one pad per hour, Shortness of breath, Dizziness, Fainting spells, Swelling in the ankles, Chest pain, Prolonged hiccoughing, Increased palpitations (irregular heartbeat), Calf discomfort, Uncontrolled pain Suture Line Care: Avoid Pulling/Pushing, Avoid Pinching/Bending Change Dressing in (Days):: 2 Remove Dressing in (days):: 2 Cleanse incision/area with: Soap AND Water Additional Dressing/Incision Instructions:: Remove dressing in 5 days. May shower at this time. Do not submerge wound. Wash hands prior to touching wound. Allergies/Adverse Reactions: Allergies No Known Allergies Allergy (Verified 04/21/17 08:56) Medications to take at Discharge Levothyroxine [Synthroid] 200 mcg PO DAILY 04/21/17 Acetaminophen [Tylenol Extra Strength] 500 mg PO Q6H PRN PRN 05/05/17 Escitalopram Oxalate [Lexapro] 10 mg PO DAILY 05/05/17 Fluticasone 0.05% [Flonase Nasal [place]] 1 spray NASAL DAILY 05/05/17 Ixekizumab [Taltz Syringe] 80 mg SQ QMONTH 05/05/17 Docusate Sodium [Colace] 100 mg PO BID PRN PRN #10 cap 05/13/17 Enoxaparin [Lovenox] 30 mg SC DAILY@0600 #12 syringe 05/13/17 Oxycodone HCl/Acetaminophen [Percocet 5/325] 1 - 2 tablet PO Q4H PRN PRN #60 tablet 05/13/17 ProMETHAzine [Phenergan] 25 mg PO Q4H PRN PRN #10 tab 05/13/17 The following prescriptions were given: Oxycodone HCl/Acetaminophen [Percocet 5/325] 1 - 2 tablet PO Q4H PRN PRN #60 tablet PRN Reason: Pain ProMETHAzine [Phenergan] 25 mg PO Q4H PRN PRN #10 tab PRN Reason: Nausea Docusate Sodium [Colace] 100 mg PO BID PRN PRN #10 cap PRN Reason: Constipation Enoxaparin [Lovenox] 30 mg SC DAILY@0600 #12 syringe Primary Care Physician: Neo Tarango MD [Primary Care Provider] - Please Follow Up With: Link Harrison DO When: CALL [facility] FOR APPT FOR 2 WEEKS Proposed Discharge Date: 05/14/17 05/14/17821 <Electronically signed by Link Harrison DO> Date Link Harrison DO CC: Neo Tarango MD CBC-COMPLETE BLOOD CNT Collected: 05/14/2017 Status: F Source: [place] NO DIFF 5:40 AM [facility] REPOSITORY TYPE CODE TESTS RESULT OUT OF RANGE REFERENCE UNITS LAB L100.1000 4.4-11.0 K/mm3 Normal WBC 10.8 LAB L100.1200 4.6-6.2 M/mm3 Low RBC 3.89 LAB L100.1300 13.0-16.5 g/dl Low HGB 11.9 LAB L100.1400 40-54 % Low HCT 36.3 LAB L100.1500 80-94 fL Normal MCV 93.3 LAB L100.1600 27.0-32.0 pg Normal MCH 30.6 LAB L100.1700 32-36 g/gl Normal MCHC 32.8 LAB L100.1810 11.6-14.6 % Normal RDW CV 12.8 LAB L100.1820 35.1-43.9 fl Normal RDW SD 42.7 LAB L100.1900 150-450 K/mm3 Normal PLT 211 LAB L100.2000 6.2-12.0 fl Normal MPV 9.8 Performed By: #### L100.0500 #### [facility] [address] [place], [address] BASIC METABOLIC Collected: 05/14/2017 Status: F Source: [place] PROFILE (BMP) 5:40 AM [facility] REPOSITORY TYPE CODE TESTS RESULT OUT OF RANGE REFERENCE UNITS LAB L501.0100 70-110 mg/dL High GLU 111 Result Comment: Fasting Glucose result from 110 to <126 mg/dL suggests IMPAIRED HOMEOSTASIS per A.D.A. criteria. LAB L501.1000 7-18 mg/dL Normal BUN 12 LAB L501.1100 0.70-1.30 mg/dL Normal CREAT,SERUM 0.81 Result Comment: The validity of the calculated GFR AND GFRAA in patients over 70 years has not been determined. Clinical correlation is essential. LAB L501.1110 >60 mL/min Normal EST GFR 105 Result Comment: Non- GFR Calc LAB L501.1115 >60 mL/min Normal EST GFR - AA 127 Result Comment: GFR Calc LAB L501.1255 ml/min Normal Estimated CRCL 111.77 LAB L501.1300 10-20 RATIO BUN/CRE Normal 14.8 LAB L501.2200 8.5-10 mg/dL Low .1 CA 8.4 LAB L501.5300 136-14 mmol/L 5 NA Normal 136 LAB L501.5600 3.5-5. mmol/L 1 K Normal 4.2 LAB L501.5900 98-107 mmol/L CL Normal 102 LAB L501.6100 21.0-3 mmol/L 2.0 CO2 Normal 27.0 LAB L501.6200 5-15 GAP Normal 7 Performed By: #### L500.2500 #### [facility] [address] [place], [place], [address] CBC-COMPLETE BLOOD CNT Collected: 05/13/2017 Status: F Source: [place] NO DIFF 5:34 AM [facility] REPOSITORY TYPE CODE TESTS RESULT OUT OF RANGE REFERENCE UNITS LAB L100.1000 4.4-11.0 K/mm3 High WBC 13.3 LAB L100.1200 4.6-6.2 M/mm3 Low RBC 4.00 LAB L100.1300 13.0-16.5 g/dl Low HGB 12.1 LAB L100.1400 40-54 % Low HCT 37.5 LAB L100.1500 80-94 fL Normal MCV 93.8 LAB L100.1600 27.0-32.0 pg Normal MCH 30.3 LAB L100.1700 32-36 g/gl Normal MCHC 32.3 LAB L100.1810 11.6-14.6 % Normal RDW CV 12.8 LAB L100.1820 35.1-43.9 fl Normal RDW SD 42.5 LAB L100.1900 150-450 K/mm3 Normal PLT 231 LAB L100.2000 6.2-12.0 fl Normal MPV 9.9 Performed By: #### L100.0500 #### [facility] [address] [facility] [place], [place], [address] BASIC METABOLIC Collected: 05/13/2017 Status: F Source: [place] PROFILE (BMP) 5:34 AM [facility] REPOSITORY TYPE CODE TESTS RESULT OUT OF RANGE REFERENCE UNITS LAB L501.0100 70-110 mg/dL Normal GLU 105 LAB L501.1000 7-18 mg/dL Normal BUN 17 LAB L501.1100 0.70-1.30 mg/dL Normal 0.84 CREAT,SERUM Result Comment: The validity of the calculated GFR AND GFRAA in patients over 70 years has not been determined. Clinical correlation is essential. LAB L501.1110 >60 mL/min Normal EST GFR 100 Result Comment: Non- GFR Calc LAB L501.1115 >60 mL/min Normal EST GFR - AA 121 Result Comment: GFR Calc LAB L501.1255 ml/min Normal Estimated CRCL 107.78 LAB L501.1300 10-20 RATIO High BUN/CRE 20.1 LAB L501.2200 8.5-10 mg/dL Low .1 CA 8.2 LAB L501.5300 136-14 mmol/L 5 NA Normal 138 LAB L501.5600 3.5-5. mmol/L 1 K Normal 4.2 LAB L501.5900 98-107 mmol/L CL Normal 103 LAB L501.6100 21.0-3 mmol/L 2.0 CO2 Normal 26.0 LAB L501.6200 5-15 GAP Normal 9 Performed By: #### L500.2500 #### [facility] [address] [facility] [place], [address] OPERATIVE REPORT Observed: 05/12/2017 Status: F Source: [place] 1:43 PM [facility] REPOSITORY [facility] Medical Records Department [address] [place] [address] Operative Report 05/12/17 1336 MR#: [id number] Acct: [id number] Name: ANGY CARSON Rep #: [id number] : 1960 57 From: Link Harrison DO PCP: Neo Tarango MD Status: ADM IN Location: [address] Report of Operation Date of Procedure: 05/12/17 Pre-Operative Diagnosis: Right knee osteoarthritis Post-Operative Diagnosis: Same as above Surgery/Procedure Performed:: Right total knee arthroplasty using the [employer] triathlon system Description of Surgical Findings:: 57-year-old male with recalcitrant right knee pain that failed nonoperative management to include NSAIDs activity modifications physical therapy and injections. Plain from radiographs show the patient to have medial lateral compartment arthrosis falling into valgus with multiple large loose bodies. Having failed conservative measures and his activities of daily living being affected and recurrent knee effusions patient elected for operative intervention. He is met in the holding area where his right lower extremity was marked and identified by the orthopedic surgeon. Patient was taken to the operating room in satisfactory condition where a timeout took place to identify the patient operative procedure and limb. Patient received 2 g Ancef and 1 g of TXA. He underwent a general anesthesia. He had a well-placed tourniquet to the right proximal thigh he was then prepped and draped in usual fashion. Right lower extremity was elevated and Esmarch used for exsanguination. Tourniquet was increased to 250 mmHg for roughly 60 minutes. Patient had a standard midline incision made 2 fingerbreadths above the patella down to the tibial tubercle. Patient then underwent a standard medial parapatellar approach. Patient had a hypertrophic synovial fold globally as I believe he has some degree of inflammatory arthritis. This was resected using standard technique. We performed an anterior fat pad resection. In a standard medial and posterior medial release. At that point time we entered into the femoral canal in anticipation of performing a a 8 mm distal femoral cut with 6 of valgus. This was done using standard technique. At that point time the sizing jig was placed and we measured to a size 7. Standard cutting jig was applied and the appropriate cuts were performed. At the time of our posterior cut a large loose body was identified the measured roughly 1 cm in overall diameter. A second loose body was then finally brought him to full extension. This was also brought out without difficulty. At that point time we turned our attention to performing our proximal tibial cut. Tibial guide was placed extra medullary. We then took 2 mm off the low side which was the tibial plateau laterally for this patient. We then performed a standard cut anticipation of using CR component. The overall size measured 7 after resection. The leg was then brought out to full extension and remnant menisci were removed. PCL was preserved. Posterior lateral and posterior medial corners were cauterized. We then turned our attention to the patella the patella patella measured roughly 28 mm in overall thickness. We took off 11 and the patient sized to a size 40 patella button. This was then reamed using standard technique. Then turned our attention to placement of the tibial tray and the femoral trial components. This was done using standard technique. 9 mm Lita gave us excellent extension alignment and no signs of knee flexion or extension gaps could be appreciated. Trial components were removed and the wound was then copiously irrigated in anticipation of placing press-fit components. Any excess debris was removed as well. We subsequently impacted our 7 tibial tray after multiple drill holes have been placed into the tibial plateau with help with bony ingrowth. Patient had excellent bone quality. His femoral component was then impacted using standard technique. A 9 mm trial components were placed. We placed our patella but using standard technique. The patient tracked very well at that point time. We separately remove the 9 mm trial component copious irrigated the joint one additional time then placed a 9 mm CS Lita. Again tracking was well-maintained overall alignment no flexion extension gaps could be appreciated. We then been her closure using oh #1 Vicryl in [id number] technique for the proximal one third with the knee in full extension and then transition to remaining closure of the distal two thirds with the knee in 30 knee flexion. Tourniquet was let down during final closure. Soft tissue was reapproximated with 2-0 Vicryl running subicular Monocryl and Dermabond. Patient was then dressed in usual fashion with Silverlon dressing and a compressive wrap. I was scrubbed and available all time during our procedure. We had no drains or complications. Implants included the [employer] triathlon total knee system using the press-fit components, 7 femur, 7 tibia, 9 mm CS Lita, and 40 patella button. Patient admitted to floor for 24 hours of IV antibiotics appropriate IV and p.o. pain medication. DVT prophylaxis will include SCDs teds and 30 mg subcu Lovenox next 14 days. Any major issues please contact me. watchstander: Tomasz Gutierrez Type of Anesthesia:: General Specimen's removed: Bone cuts Estimated Blood Loss (mL): 50 Fluids Replaced: 1000 Grafts/Implants Used: Striker triathlon press-fit, 7 femur, 7 tibia, 9 mm CS, 40 patella button - Complications None - Admit VTE Documentation VTE Present on Admission: No VTE Mechan Device Prophylaxis: SCD's, Knee High ARCHIE Hose VTE Pharm Prophylaxis ordered?: Yes 05/12/17 2783 <Electronically signed by Link Harrison DO> Date Link Harrison DO CC: Neo Tarango MD; Link Harrison DO Signed KNEE 1 OR 2 VIEWS Observed: 05/12/2017 Status: F Source: [place] 11:04 AM [facility] Imaging Services [address] [place] [address] Knee 1 or 2 Views MR#: [id number] Acct: [id number] Name: ANGY CARSON Rep #: [id number] : 1960 M 57 From: Hima Nath MD PCP: Neo Tarango MD Status: ADM IN Study: Knee 1 or 2 Views Date of Exam: 05/12/17 Exam# [id number] Ordering Dr: Link Harrison DO STUDY: X-RAY - RIGHT KNEE REASON FOR EXAM: Male, 57 years old. Total knee replacement. TECHNIQUE: AP and lateral view(s) of the knee. COMPARISON: Comparison is made with prior study dated April 21, 2017. FINDINGS: Normal visualized distal femur. Normal visualized proximal tibia and fibula. Normal proximal tibiofibular articulation. The patient is status post total knee replacement. There is good alignment. Postoperative soft tissue changes. RAD/Knee 1 or 2 Views IMPRESSION: Status post total knee replacement. There is good alignment. Postoperative soft tissue changes. Electronically Signed: Hima Nath MD at 14:40 EST Tel [phone], Service support , CC: Neo Tarango MD; Link Harrison DO Rough Rice Tender: Signed TOTAL KNEE REPLACEMENT Observed: 05/12/2017 Status: F Source: [place] 10:15 AM [facility] Patient: ANGY CARSON : 1960 (57/M) Acct Num: [id number] Phys: TamialulMelissa Unit Num: [id number] Loc: MS3 NP329-8 Specimen: [id number] Received: 05/13/17930 Spec Type: TOTAL KNEE TISSUES TISSUES: Knee, NOS GROSS DESCRIPTION Received in fixative is one container labeled with the patient's name and designated right knee bone. The specimen consists of multiple fragments of moody-yellow bone measuring in aggregate 11 x 12 x 4 cm. Also in the specimen container are multiple fragments of yellow-white soft tissue measuring in aggregate 7 x 6 x 3 cm. A number of bony fragments contain articular surfaces consistent with tibial plateau and femoral condyle and displaying prominent osteophyte formation, eburnation, and bone erosion. Tab Cutter sections are submitted in two cassettes as follows: 1 - soft tissue, 2 - bone after decalcification. / SJ:bonnie 05/13/17 TC:5 CPT: 78400, 92141 HEADER OPERATION: Total knee replacement PRE-OP DIAGNOSIS: Acute pain of right knee, primary osteoarthritis of right knee, right knee effusion TISSUE SUBMITTED: Right knee bone MICROSCOPIC DESCRIPTION Slides are reviewed. MICROSCOPIC DIAGNOSIS Bone and soft tissue of right knee, total knee resection: Severe degenerative joint disease. AM:bonnie 05/18/17 Signed Carrington Shahana 05/18/17 <signature on file> Performed By: #### PKNEE #### [facility] [address] [place], [place], [address] THYROID STIM HORMONE Collected: 05/05/2017 Status: F Source: [place] (TSH) 11:30 AM [facility] REPOS[facility] TYPE CODE TESTS RESULT OUT OF RANGE REFERENCE UNITS LAB L501.9520 0.358-3.74 uIU/mL Normal TSH 1.49 Performed By: #### L501.9520 #### [facility] [address] [place], [address] Observed: 05/05/2017 Status: F Source: [place] MRSA/SAID SCREEN 11:30 AM [facility] Copy of report sent to Infection Control Printer MS#[id number] 05/06/17 1409 CHEMA. Results called on 05/06/17-9452 by CHEMA to ANTOINETTE MANCILLA [phone]. MRSA/SAID SCRN S. AUREUS S. aureus Positive MRSA MRSA Negative Performed By: #### M100.651 #### [facility] [address] [place], [address] ORTHOPEDIC VISIT Observed: 04/26/2017 Status: F Source: [place] REPORT 9:53 AM [facility] [place] [address] OFFICE VISIT Date of Service: 04/23/17 MR#: [id number] Acct: [id number] Name: ANGY CARSON Rep #: [id number] : 1960 Provider: Link Harrison DO Age/Sex: 57/M Location: [facility] [place] [place] Status: Signed Intake Intake Visit Reasons: Rt knee Is patient in pain?: Yes Allergies No Known Allergies Allergy (Verified 04/21/17 08:56) Medications Levothyroxine [Synthroid] 175 mcg PO DAILY 04/21/17 [History Confirmed 04/21/17] Oxycodone HCl/Acetaminophen [Percocet 5/325] 1 tab PO Q6H PRN PRN #12 tab 04/21/17 [Rx] PFSH Surgical History s/p mitro valve (Inactive) Social History Smoking Status: Former smoker HPI Rt knee: Chief Complaint: right knee Details: ANGY CARSON is a 57 year old M here today for right knee pain. He states that on Thursday night he twisted his knee while bowling and he felt a click. Patient had significant swelling following his click. Patient went to the ED on Thursday where he had xrays which are here for review. Patient was given oxycodone which he has been taking. Patient denies any current popping or clicking. He complains of weakness and difficulty with range of motion. He has been icing and MURALI wrapping. He is ambulating with crutches. Denies numbness, tingling or other associated symptoms. ROS Const Reports system reviewed and no additional complaints, except as docu Eyes Reports system reviewed and no additional complaints, except as docu ENT Reports system reviewed and no additional complaints, except as docu Card Reports system reviewed and no additional complaints, except as docu Resp Reports system reviewed and no additional complaints, except as docu GI Reports system reviewed and no additional complaints, except as docu Reports system reviewed and no additional complaints, except as docu Musc Reports joint pain, Reports joint swelling, Reports stiffness Skin/Breast Reports system reviewed and no additional complaints, except as docu Neuro Yes system reviewed and no additional complaints, except as docu Psych Reports system reviewed and no additional complaints, except as docu Endo Reports system reviewed and no additional complaints, except as docu Ortho Exam Right Knee Contralateral Normal: Yes Swelling: Yes Homans Sign: No 3+: Effusion Quad Atrophy: No Examination: Med jt line tenderness, Lat jt line tenderness, Crepitus, Pain with flexion, Pain with extension Stability: NML: Posterior Drawer, NML: Valgus 0, NML: Valgus 30, NML: Varus 0, NML: Varus 30, NML: Dial 90, NML: Dial 30, 1+: Anterior Drawer, 1+: Renaldo Popliteal Adenopathy: No Patella Translation: 1 Apprehension with Lateral Translation: No Patellar Tilt Normal: No Patella Grind: Yes KNEE: Patient is alert and oriented 3 in no acute distress appropriate eye contact affect. However the patient walks an antalgic gait using crutches. Patient has a very large right knee from his effusion. He otherwise remains intact from L1-S1 distributions bilaterally. He has +2 pulses. EHL anterior gastric choice Quads hamstrings 5 out of 5. He has no adenopathy. Left knee examination shows 0 extension to 135 knee flexion. Minimal medial joint line tenderness today mild varus deformity to the knee and some mild patellofemoral crepitus but no obvious effusion ligamentously stable in all planes no adenopathy. Right knee examination: Patient shows a large knee effusion +3 he guards with Lockman examination but appears to be L1. He is otherwise ligamentously stable at 0 and 30 . He has medial lateral joint line pain he has patellofemoral pain with compression. He has no obvious adenopathy again range of motion currently is listed to 0 to about 90 secondary to the tenseness of his effusion. Otherwise EHL into the gastric choice peroneals quads hamstrings 5 out of 5. General: well developed, well nourished in no acute distress. Head: normocephalic and atraumatic Pulses: pulses normal in all 4 extremities. Neurologic: no focal deficits, cranial nerves II-XII grossly intact with normal sensation, reflexed, coordination, muscle strength and tone. Axillary Nodes: no significant adenopathy. Psych: alert and cooperative, normal mood and affect, normal attention span and concentration. Heart regular with an S1-S2 lungs clear to auscultation bilaterally abdomen soft nontender nondistended. Left Knee Skin/Wound: Yes CDI Contralateral Normal: Yes Swelling: No Homans Sign: No Quad Atrophy: No Stability: NML: Anterior Drawer, NML: Renaldo, NML: Posterior Drawer, NML: Valgus 0, NML: Valgus 30, NML: Varus 0, NML: Varus 30, NML: Dial 90, NML: Dial 30 Patella Translation: 1 Apprehension with Lateral Translation: No Patellar Tilt Normal: Yes Patella Grind: No Office Procedures Ortho Aspiration Ortho Injections/Aspirations Yes Knee Right Details: Obtained consent for aspiration. Under sterile conditions, aspirated 90cc from the patients right knee. The patient tolerated the aspiration well without any noted complications. Patient should call our office if redness develops, pain worsens or if they have any concerns. Obtained consent for injection. Under sterile conditions, injected the patients right knee with a 10cc cocktail of 8cc bupivacaine and 2cc kenalog. The patient tolerated the injection well without any noted complication. Patient should call our office if redness develops, pain worsens or if they have any concerns. Office Meds Kenalog Performing Provider: Link Harrison DO Administered by: Link Harrison DO on 04/23/17 10:39 Dose Route Admin Location Lot Number Expiration DateNDC Rehabilitation Nurse 2 mg Intra-Articularright knee [id number] 06/25/18 7659-5335-84 [employer] Assessment AND Plan Problems 1. Acute pain of right knee M25.561; M25.561 2. Primary osteoarthritis of right knee M17.11; M17.11 3. Knee effusion, right M25.461 Plan Assessment: Right knee osteoarthritis right knee pain right knee effusion. Radiographs: Evaluated myself the patient-right knee tricompartmental arthrosis with loose body formation. Severe. Plan: At this point time the patient had been debating whether not to proceed with a total knee arthroplasty and at this point is come to realization that he has continued knee pain large knee effusion and desires to proceed with intervention as he continues to affect his activities of daily living. Is now developed a large knee effusion with minimal activity level and feels that he is now at the point where total knee arthroplasty will be beneficial for him. Patient was subsequently consented for right total knee arthroplasty. Patient understands risks and benefits to include damage to nerves muscles arteries and veins, DVT infection . Continued knee pain and need for repeat procedure. Reviewed the pre-operative plans with the patient. Risks and benefits of the procedure were fully explained, including but not limited to infection, neurovascular injury, continued pain, arthritis, stiffness, need for further surgery, re-injury, DVT, PE, general risks of anesthesia, and loss of limb or life. The patient understands all the risks and does wish to proceed with written consent. In the face of a large knee effusion the patient and I agreed to proceed with a right knee aspiration and then subsequent steroid injection. Patient was counseled and consented for right knee aspiration with subsequent injection with a 10 cc cocktail of 8 cc of gain 2 cc of Kenalog. Patient was prepped and draped in usual fashion. Using a superior lateral outflow the patient had roughly 100 cc of synovial fluid aspirated from his knee with early onset relief of pain. He was then injected with the aforementioned cocktail. A compressive wrap was applied. Fluid will be sent down for fluid analysis. Orders Orders: Medications Discontinued: Kenalog (triamcinolone acetonide) 2 mg (0.2 mL) Intra-Articular ONCE NM25.461 Chiki Edwards Discontinued Reason: Office MedicaS tion has been Documented as given 04/26/17 0953 <Electronically signed by Link Harrison DO> Date Link Harrison DO Cosigner Signature: Date (if applicable) CC: SYNOVIAL FLUID RBC, Collected: 04/23/2017 Status: F Source: [place] WBC AND DIFF 3:42 PM [facility] TYPE CODE TESTS RESULT OUT OF RANGE REFERENCE UNITS LAB L200.5050 0.000-0.000 10 3 uL High SYN Tot 9.[address] Result Comment: This is the Total Number of Nucleated Cell Types in the Body Fluid. LAB L200.5100 0 10 6/uL High SYNOVIAL RBC 0.002 LAB L200.5200 0.000-0.002 10 3uL High SYNOVIAL WBC 8.9700 LAB L200.5260 % SYBF PMN Normal WBC% 83.8 LAB L200.5270 10 3/ul SYBF PMN Normal WBC# 8.398 LAB L200.5280 % SYBF MN Normal WBC% 16.2 LAB L200.5800 PATH Normal COM/SYFL May follow LAB L200.5300 0-25 % High NEUTROPHIL 82 LAB L200.5400 % LYMPH Normal 4 LAB L200.5500 % MONO Normal 14 LAB L200.4600 SYNOVIAL Normal SOURCE KNEE LAB L200.4800 HIGH Normal VISCOSITY/SYFL Sl. Viscous LAB L200.4900 Pale Yellow SYNOVIAL Normal COLOR Yellow LAB L200.5000 CLEAR SYNOVIAL Normal RONNY. Cloudy Performed By: #### L200.0400, L200.4175 #### [facility] [address] [place], [place], [address] CRYSTALS, BODY FLUID Collected: 04/23/2017 Status: F Source: [place] 3:42 PM [facility] TYPE CODE TESTS RESULT OUT OF RANGE REFERENCE UNITS LAB L200.4200 Normal SEE PATH REV CRYSTALS/BF LAB L200.4225 Normal SYNOVIAL SOURCE/BF LAB L200.6020 Normal PATH Reviewed REV Result Comment: Negative for malignant cells. Acute inflammation. Rare calcium pyrophosphate (pseudogout) crystals are noted. Antonio Holt M.D. 04/24/17 AMENDED REPORT 04/24/17 1211 PATH REV previously reported as: Will follow Performed By: #### L200.0400, L200.4175 #### [facility] [address] [place], [place], [address] Observed: 04/23/2017 Status: F Source: GABRI[place]A CULTURE, BODY FLUID 3:42 PM [facility] RE[facility] List Antibiotics Last 48 Hours? . List Antibiotics to be Started? . Gram Stain Centrifuged Specimen? Culture performed on centrifuged specimen Gram Stain 1+ White Blood Cells No organisms seen Body Fluid Cult NO GROWTH IN 14 DAYS Cult, Anaerobic No growth in 5 days. Performed By: #### M100.1300 #### [facility] [address], [address] GLUCOSE, SYNOVIAL Collected: 04/23/2017 Status: F Source: [place] FLUID 3:42 PM [facility] Order Comment: Specimen Source: KNEE TYPE CODE TESTS RESULT OUT OF RANGE REFERENCE UNITS LAB L3800.0101 . mg/dL Normal GLU, SYN 92 FLD Result Comment: : Peritoneal : Pleural : Synovial : : : : : : : Transudate : Exudate : : : : : : : : Not Estab. : Equal to simultaneously drawn plasma : : : : The method performance specifications have not been established for this test in body fluid. The test result should be integrated into clinical context for interpretation. The reference intervals and other method performance specifications have not been established for this test. The test result should be integrated into the clinical context for interpretation. Performed By: #### L3800.0101 #### [facility] (refer to report for specific site) refer to report for address and phone number EMERGENCY DEPARTMENT Observed: 04/21/2017 Status: F Source: [place] SUMMARY 6:41 PM [facility] Medical Records Department [address] [place] [address] Emergency Department Summary 04/21/17 0906 MR#: [id number] Acct: [id number] Name: ANGY CARSON Rep #: [id number] : 1960 57 From: Rebecca Oconnor MD PCP: Neo Tarango MD Status: DEP ER - ER Visit Summary Date of Service: 04/21/17 Chief Complaint: Right knee pain and swelling History of Present Illness: The patient is a 57 M who has had 2 prior right knee surgeries. Patient states he has had tendon and cartilage repair. He was told by Dr. Moyer in the past he would need a knee replacement at some point. Patient was bowling 2 or 3 days ago and tweaked his right knee. He has had pain and swelling since that time. Physical Examination: Vital signs are significant for heart rate of 125. Head neck examination is normal. Heart is regular rate and rhythm. Lungs are clear. Abdomen is soft, obese, nontender. Lower external examination reveals mild tenderness of the anterior right knee with a positive effusion. He has decreased range of motion secondary to edema. His calf is soft and nontender. He has slow purposeful range of motion. Distal pulses are strong and equal. Test Results: Right knee x-rays reveal significant degenerative changes. Emergency Department Course and Treatment: Patient be placed in an Murali wrap and given crutches. He may weight-bear as tolerated. He will be given a very short course of Percocet for pain. He will be given work restrictions that he must be able to sit or stand as needed for comfort and use crutches as needed. He wishes to follow-up with Dr. Harrison and his information for follow-up will be provided. Treatment Plan: [] Disposition: Discharge Impression: Right knee sprain This note was generated with [employer] dictation software. It may contain incorrect words, spelling, and punctuation that were not noted in review of the chart prior to signing ED Disposition - Plan for ED Patient: Chief Complaint: Lower Extremity Injury Referrals: Neo Tarango MD [Primary Care Provider] - What to do if you have Problems For any increased pain, shortness of breath, bleeding, nausea or vomiting, chest pain, or any unexpected problems, contact your Primary Care Provider. Call [facility] ([phone]) or report to the closest Emergency Room. Call 911 if necessary. 04/21/17 184 <Electronically signed by Rebecca Oconnor MD> Date Rebecca Oconnor MD Cosigner Signature (If Indicated): Date CC: Neo Tarango MD DISCHARGE INSTRUCTION Observed: 04/21/2017 Status: F Source: [place] 9:28 AM [facility] Medical Records Department [address] [place] [address] Discharge Instruction 04/21/17926 MR#: [id number] Acct: [id number] Name: ANGY CARSON Rep #: [id number] : 1960 57 From: Rebecca Oconnor MD PCP: Neo Tarango MD Status: REG ER ED Disposition - Plan for ED Patient: Disposition: Home or Assisted Living Chief Complaint: Lower Extremity Injury Instructions: ED Sprain Knee Prescriptions: Oxycodone HCl/Acetaminophen [Percocet 5/325] 1 tablet PO Q6H PRN PRN #12 tablet PRN Reason: Pain Referrals: Neo Tarango MD [Primary Care Provider] - Link Harrison DO [STAFF PHYSICIAN] - As soon as possible What to do if you have Problems For any increased pain, shortness of breath, bleeding, nausea or vomiting, chest pain, or any unexpected problems, contact your Primary Care Provider. Call [facility] ([phone]) or report to the closest Emergency Room. Call 911 if necessary. 04/21/17927 <Electronically signed by Rebecca Oconnor MD> Date Rebecca Oconnor MD Cosigner Signature (If Indicated): Date CC: Neo Tarango MD KNEE 4 OR MORE Observed: 04/21/2017 Status: F Source: [place] VIEWS 9:02 AM [facility] Imaging Services [address] [place] [address] Knee 4 or More Views MR#: [id number] Acct: [id number] Name: ANGY CARSON Rep #: [id number] : 1960 M 57 From: Acosta Ely MD PCP: Neo Tarango MD Status: DEP ER Study: Knee 4 or More Views Date of Exam: 04/21/17 Exam# [id number] Ordering Dr: Rebecca Oconnor MD STUDY: X-RAY - RIGHT KNEE REASON FOR EXAM: Male, 57 years old. Pain after a fall TECHNIQUE: 4 view(s) of the knee. COMPARISON: 2012 FINDINGS: Normal visualized distal femur. Normal visualized proximal tibia and fibula. Normal proximal tibiofibular articulation. There is no demonstrated fracture. There is moderate degenerative arthrosis of the medial femorotibial compartment with moderate joint space narrowing. There is moderate degenerative arthrosis of the lateral femorotibial compartment with moderate joint space narrowing. There is moderate degenerative arthrosis of the patellofemoral articulation. There is a moderate volume joint effusion. The soft tissue structures are unremarkable. RAD/Knee 4 or More Views IMPRESSION: Degenerative arthrosis with spur formation and moderate suprapatellar effusion. No demonstrated fracture, the effusion could be a sign of soft tissue injury. Electronically Signed: Aaron Ely MD at 13:48 EST , Service support , CC: Neo Tarango MD; Rebecca Oconnor MD Rough Rice Tender: Signed ALLERGIES ALLERGIES DATE TYPE / CODE NAME / CODE REACTION SEVERITY SOURCE 03/24/2018 Drug No Known Unknown [facility] Allergy/4160 Allergies/F00 Hospital 36888(SNOMED 4842309(RXNOR Repository CT) M) ENCOUNTERS ENCOUNTERS ADMIT/DISCHARGE ACCOUNT ADMITTING ENCOUNTER LOCATION SOURCE NUMBER CLASS 04/12/2018 [id number] Ambulatory [facility] Hospital ing[facility] Repository 04/06/2018/ [id number] [facility] 03/25/2018 [id number] Ambulatory [facility] Hospital ing:[facility] Repository 03/24/2018/ [id number] Ambulatory [facility] [place] [facility] 0 [place] Repository 03/24/2018 [id number] Ambulatory [facility] [place] 0 [facility] Repository 01/12/2018/ [id number] Ambulatory [facility] 01/06/2018 [id number] Ambulatory [facility] Hospital ing:[facility] Repository 10/14/2017/ [id number] Ambulatory [facility] Repository 09/02/2017/ [id number] Ambulatory [facility] 1 [facility] Repository 08/27/2017 [id number] Ambulatory [facility] Repository 08/18/2017/ [id number] Ambulatory [facility] 7 [facility] hospital Hospital ing:[facility] Repository 08/18/2017 [id number] Ambulatory [facility] 2 [facility] Repository 08/10/2017/ [id number] Ambulatory [facility]:B [place] [facility] 2 [facility] Repository 07/24/2017/ [id number] Ambulatory [place] [facility] 1 [facility] access hospital Hospital ing:PT Repository 07/13/2017 [id number] Ambulatory [facility] Hospital ing:[facility] Repository 07/08/2017 [id number] Ambulatory [facility] Hospital ing:[facility] Repository 07/07/2017/ [id number] Ambulatory [facility] 06/22/2017 [id number] Ambulatory [facility] ing:[facility] Repository 06/22/2017/ [id number] Ambulatory [facility]Building:B [facility] 1 [facility] Repository 06/10/2017 [id number] Ambulatory [facility] ing:[facility] Repository 05/25/2017/ [id number] Ambulatory B[facility]:B [place] [facility] 6 [facility] Repository 05/12/2017/ [id number] Link Harrison Inpatient [place] 8 8 Encounter [facility] ing:YE8Dfkk: Repository [id number]: 1 05/12/2017 [id number] Link Harrison Ambulatory B[facility]Building:W [facility] 2 [facility] Repository 05/12/2017 [id number] Link Harrison Ambulatory BMSBuilding:W [place] 9 [facility] Repository 05/12/2017 [id number] Link Harrison Ambulatory B[facility]Building:W [facility] 5 [facility] Repository 05/12/2017 [id number] Link Harrison Ambulatory [facility]:B [place] 6 [facility] Repository 05/12/2017 [id number] Link Harrison Ambulatory BMSBuilding:W [place] 1 [facility] Repository 05/12/2017 [id number] Link Harrison Ambulatory [facility]:B [place] 7 [facility] Repository 05/12/2017 [id number] Link Harrison Ambulatory BMSBuilding:W [facility] 3 [facility] Repository 05/12/2017 [id number] Link Harrison Ambulatory [facility]:B [place] 7 [facility] Repository 05/12/2017 [id number] Link Harrison Ambulatory BMSBuilding:W Hewitt 9 [facility] Repository 05/12/2017/ [id number] Ambulatory BMSBuilding:B Gabriela [address] [facility] Repository 05/05/2017 [id number] Ambulatory BMSBuilding:W Gabriela 1 [facility] Repository 04/23/2017 [id number] Ambulatory Hewitt Gabriela 5 [facility] ing:LABSPEC Repository 04/23/2017/ [id number] Ambulatory BMSBuilding:B Hewitt [address] [facility] Repository 04/21/2017/ [id number] Emergency Hewitt Gabriela 7 6 [facility] ing:ED Repository PAYERS PAYERS ENCOUNTER GUARANTOR PAYER SUBSCRIBER SOURCE 04/12/2018 ANGY Cowart Primary Insurance:UMR ANGY A Hewitt [id number] YOCASTA [id number] [facility] Number: [id number], [place] [id number] Repository 33961Haj: 330) Date:5963-45-27KB [phone] () [address] [place] [address]PT: 04/12/2018 Secondary NOT GIVENUNK Gabriela Insurance:SELF PAY [facility] Number: Effective Repository Date:2018-04-05 04/06/2018 ANGY A Primary Insurance:UMR ANGY A Hewitt [id number] YOCASTA [id number] MCCOLLOUGHDOB: [facility] Number: [id number], [place] [id number] Repository 88063Ask: (330) Date:2720-90-34KT [phone] () [address] [place] [address]VQ: 04/06/2018 Secondary NOT GIVENUNK Gabriela Insurance:SELF PAY [facility] Number: Effective Repository Date:2018-04-06 03/25/2018 ANGY A Primary Insurance:UMR ANGY A Hewitt [id number] YOCASTA [id number] MCCOLLOUGHDOB: [facility] Number: [id number], [place] [id number] Repository 26114Cot: (330) Date:2998-93-34MN [phone] () [address] [place] [address]SU: 03/25/2018 Secondary NOT GIVENUNK Gabriela Insurance:SELF PAY [facility]: Effective Repository Date:2018-03-25 03/24/2018 ANGY A Primary Insurance:UMR ANGY A Hewitt [id number] YOCASTA [id number] MCCOLLOUGHDOB: [facility] Number: [id number], [place] [id number] Repository 64007Lhr: (330) Date:3809-46-43CH [phone] () [address] [place] [address]GR: 03/24/2018 Secondary NOT GIVENUNK Hewitt Insurance:SELF PAY [facility] Number: Effective Repository Date:2018-03-24 03/24/2018 ANGY A Primary Insurance:UMR ANGY A Hewitt [id number] YOCASTA [id number] EMREOUGHDOB: [facility] Number: [id number], [place] [id number] Repository 83066Yqp: (330) Date:3403-37-50ZR [phone] () [address] [place] [address]WS: 03/24/2018 Secondary NOT GIVENUNK Gabriela Insurance:SELF PAY [facility] Number: Effective Repository Date:2018-03-24 01/12/2018 ANGY A Primary Insurance:UMR ANGY A Hewitt [id number] YOCASTA [id number] MCCOLLOUGHDOB: [facility] Number: [id number], [place] [id number] Repository 17619Smw: (330) Date:1635-61-87SZ [phone] (HP) [address] [place] [address]FW: 01/12/2018 Secondary NOT GIVENUNK Gabriela Insurance:SELF PAY [facility] Number: Effective Repository Date:2018-01-12 01/06/2018 ANGY A Primary Insurance:UMR ANGY A Hewitt [id number] YOCASTA [id number] MCCOLLOUGHDOB: [facility] Number: [id number], [place] [id number] Repository 29743Pax: (330) Date:4345-43-69ZW [phone] (HP) [address] [place] [address]BZ: 01/06/2018 Secondary NOT GIVENUNK Hewitt Insurance:SELF PAY [facility] Number: Effective Repository Date:2018-01-06 10/14/2017 ANGY A Primary Insurance:UMR ANGY A Gabriela [id number] YOCASTA [id number] MCCOLLOUGHDOB: [facility] Number: [id number], [place] [id number] Repository 73551Iyy: (330) Date:1072-58-16YN [phone] (HP) [address] [place] [address]ER: 10/14/2017 Secondary NOT GIVENUNK Hewitt Insurance:SELF PAY [facility] Number: Effective Repository Date:2017-10-14 09/02/2017 ANGY A Primary Insurance:UMR ANGY A Hewitt [id number] YOCASTA [id number] MCCOLLOUGHDOB: [facility] Number: [id number], [place] [id number] Repository 78577Uuv: (330) Date:4707-68-68OV [phone] (HP) [address] [place] [address]MZ: 09/02/2017 Secondary NOT GIVENUNK Hewitt Insurance:SELF PAY [facility] Number: Effective Repository Date:2017-08-18 08/27/2017 ANGY A Primary Insurance:UMR ANGY A Hewitt [id number] YOCASTA [id number] MCCOLLOUGHDOB: [facility] Number: [id number], [place] [id number] Repository 68377Zgd: (330) Date:3188-01-17EA [phone] () [address] [place] [address]EQ: 08/27/2017 Secondary NOT GIVENUNK Gabriela Insurance:SELF PAY [facility] Number: Effective Repository Date:2017-08-10 08/18/2017 ANGY A Primary Insurance:UMR ANGY A Hewitt [id number] YOCASTA [id number] MCCOLLOUGHDOB: [facility] Number: [id number], [place] [id number] Repository 56178Vzy: (330) Date:2139-57-52DE [phone] () [address] [place] [address]LJ: 08/18/2017 Secondary NOT GIVENUNK Hewitt Insurance:SELF PAY [facility] Number: Effective Repository Date:2017-08-10 08/18/2017 ANGY A Primary Insurance:UMR ANGY A Gabriela [id number] YOCASTA [id number] EMREOUGHDOB: [facility] Number: [id number], [place] [id number] Repository 13460Owt: (330) Date:7814-24-20PN [phone] () [address] [place] [address]IZ: 08/18/2017 Secondary NOT GIVENUNK Gabriela Insurance:SELF PAY [facility] Number: Effective Repository Date:2017-08-18 08/10/2017 ANGY A Primary Insurance:UMR ANGY A Gabriela [id number] YOCASTA [id number] MCCOLLOUGHDOB: [facility] Number: [id number], [place] [id number] Repository 80179Gqb: (330) Date:7239-66-36XG [phone] (HP) [address] [place] [address]DF: 08/10/2017 Secondary NOT GIVENUNK Hewitt Insurance:SELF PAY [facility] Number: Effective Repository Date:2017-08-10 07/24/2017 ANGY A Primary Insurance:UMR ANGY A Hewitt [id number] YOCASTA [id number] MCCOLLOUGHDOB: [facility] Number: [id number], [place] [id number] Repository 91756Lau: (330) Date:0407-06-40XB [phone] (HP) [address] [place] [address]ZD: 07/24/2017 Secondary NOT GIVENUNK Hewitt Insurance:SELF PAY [facility] Number: Effective Repository Date:2017-05-18 07/13/2017 ANGY A Primary Insurance:UMR ANGY A Hewitt [id number] YOCASTA [id number] MCCOLLOUGHDOB: [facility] Number: [id number], [place] [id number] Repository 59910Bdv: (330) Date:9084-67-03XZ [phone] (HP) [address] [place] [address]VW: 07/13/2017 Secondary NOT GIVENUNK Gabriela Insurance:SELF PAY [facility] Number: Effective Repository Date:2017-07-13 07/08/2017 ANGY A Primary Insurance:UMR ANGY A Gabriela [id number] YOCASTA [id number] MCCOLLOUGHDOB: [facility] Number: [id number], [place] [id number] Repository 05992Kdl: (330) Date:3219-50-24CY [phone] (HP) [address] [place] [address]SA: 07/08/2017 Secondary NOT GIVENUNK Gabriela Insurance:SELF PAY [facility] Number: Effective Repository Date:2017-07-08 07/07/2017 ANGY A Primary Insurance:UMR ANGY A Hewitt [id number] YOCASTA [id number] MCCOLLOUGHDOB: [facility] Number: [id number], [place] [id number] Repository 62804Mgk: 330) Date:7969-18-09MD [phone] () [address] [place] [address]LV: 07/07/2017 Secondary NOT GIVENUNK Hewitt Insurance:SELF PAY [facility] Number: Effective Repository Date:2017-04-16 06/22/2017 ANGY A Primary Insurance:UMR ANGY A Gabriela [id number] YOCASTA [id number] MCCOLLOUGHDOB: [facility] Number: [id number], [place] [id number] Repository 91846Flq: (330) Date:1062-54-06IK [phone] () [address] [place] [address]HS: 06/22/2017 Secondary NOT GIVENUNK Hewitt Insurance:SELF PAY [facility] Number: Effective Repository Date:2017-06-22 06/22/2017 ANGY A Primary Insurance:UMR ANGY A Hewitt [id number] YOCASTA [id number] MCCOLLOUGHDOB: [facility] Number: [id number], [place] [id number] Repository 50202Olq: 330) Date:0405-50-13FI [phone] () [address] [place] [address]JG: 06/22/2017 Secondary NOT GIVENUNK Gabriela Insurance:SELF PAY [facility] Number: Effective Repository Date:2017-05-25 06/10/2017 ANGY A Primary Insurance:UMR ANGY A Gabriela [id number] YOCASTA [id number] MCCOLLOUGHDOB: [facility] Number: [id number], [place] [id number] Repository 50538Fxw: (330) Date:1621-02-14OM [phone] (HP) [address] [place] [address]KA: 06/10/2017 Secondary NOT GIVENUNK Hewitt Insurance:SELF PAY [facility] Number: Effective Repository Date:2017-06-10 05/25/2017 ANGY A Primary Insurance:UMR ANGY A Hewitt [id number] YOCASTA [id number] MCCOLLOUGHDOB: [facility] Number: [id number], [place] [id number] Repository 24349Qez: (330) Date:7240-85-50BU [phone] () [address] [place] [address]GO: 05/25/2017 Secondary NOT GIVENUNK Hewitt Insurance:SELF PAY [facility] Number: Effective Repository Date:2017-05-20 05/12/2017 ANGY A Primary Insurance:UMR ANGY A Hewitt [id number] YOCASTA [id number] MCCOLLOUGHDOB: [facility] Number: [id number], [place] [id number] Repository 02390Hsc: (330) Date:1677-98-02BS [phone] () [address] [place] [address]GI: 05/12/2017 Secondary NOT GIVENUNK Gabriela Insurance:SELF PAY [facility] Number: Effective Repository Date:2017-04-28 05/12/2017 ANGY A Primary Insurance:UMR ANGY A Hewitt [id number] YOCASTA [id number] MCCOLLOUGHDOB: [facility] Number: [id number], [place] [id number] Repository 99771Hjc: (330) Date:3762-67-97BP [phone] (HP) [address] [place] [address]OT: 05/12/2017 Secondary NOT GIVENUNK Hewitt Insurance:SELF PAY [facility] Number: Effective Repository Date:2017-05-12 05/12/2017 ANGY A Primary Insurance:UMR ANGY A Hewitt [id number] YOCASTA [id number] MCCOLLOUGHDOB: [facility] Number: [id number], [place] [id number] Repository 60473Zed: (330) Date:3641-33-25BX [phone] () [address] [place] [address]NC: 05/12/2017 Secondary NOT GIVENUNK Gabriela Insurance:SELF PAY [facility] Number: Effective Repository Date:2017-05-12 05/12/2017 ANGY A Primary Insurance:UMR ANGY A Gabriela [id number] YOCASTA [id number] MCCJUANOUGHDOB: [facility] Number: [id number], [place] [id number] Repository 38681Npw: (330) Date:5365-62-55NZ [phone] () [address] [place] [address]GH: 05/12/2017 Secondary NOT GIVENUNK Hewitt Insurance:SELF PAY [facility] Number: Effective Repository Date:2017-05-12 05/12/2017 ANGY A Primary Insurance:UMR ANGY A Gabriela [id number] YOCASTA [id number] EMREOUGHDOB: [facility] Number: [id number], [place] [id number] Repository 52044Nmq: (330) Date:9084-33-13DT [phone] () [address] [place] [address]LO: 05/12/2017 Secondary NOT GIVENUNK Hewitt Insurance:SELF PAY [facility] Number: Effective Repository Date:2017-05-12 05/12/2017 ANGY A Primary Insurance:UMR ANGY A Hewitt [id number] YOCASTA [id number] MCCJUANOUGHDOB: [facility] Number: [id number], [place] [id number] Repository 64387Jie: (330) Date:0631-49-30XW [phone] (HP) [address] [place] [address]XE: 05/12/2017 Secondary NOT GIVENUNK Hewitt Insurance:SELF PAY [facility] Number: Effective Repository Date:2017-05-12 05/12/2017 ANGY A Primary Insurance:UMR ANGY A Hewitt [id number] YOCASTA [id number] MCCOLLOUGHDOB: [facility] VINCE Number: [id number], [place] [id number] Repository 79678Sge: (330) Date:4352-50-31UF [phone] (HP) [address] [place] [address]DT: 05/12/2017 Secondary NOT GIVENUNK Gabriela Insurance:SELF PAY [facility] Number: Effective Repository Date:2017-05-12 05/12/2017 ANGY A Primary Insurance:UMR ANGY A Hewitt [id number] YOCASTA [id number] MCCOLLOUGHDOB: [facility]CE Number: [id number], [place] [id number] Repository 43495Pos: (330) Date:4760-34-92KV [phone] (HP) [address] [place] [address]QV: 05/12/2017 Secondary NOT GIVENUNK Hewitt Insurance:SELF PAY [facility] Number: Effective Repository Date:2017-05-12 05/12/2017 ANGY A Primary Insurance:UMR ANGY A Gabriela [id number] YOCASTA [id number] MCCOLLOUGHDOB: [facility]CE Number: [id number], [place] [id number] Repository 07866Qjs: (330) Date:3994-90-58DA [phone] (HP) [address] [place] [address]WV: 05/12/2017 Secondary NOT GIVENUNK Gabriela Insurance:SELF PAY [facility] Number: Effective Repository Date:2017-05-12 05/12/2017 ANGY A Primary Insurance:UMR ANGY A Hewitt [id number] YOCASTA [id number] MCCOLLOUGHDOB: [facility] Number: [id number], [place] [id number] Repository 14239Ger: 330) Date:3174-85-01XH [phone] () [address] [place] [address]UH: 05/12/2017 Secondary NOT GIVENUNK Gabriela Insurance:SELF PAY [facility] Number: Effective Repository Date:2017-05-12 05/12/2017 ANGY A Primary Insurance:UMR ANGY A Hewitt [id number] YOCASTA [id number] MCCOLLOUGHDOB: [facility] Number: [id number], [place] [id number] Repository 92730Oic: (124) Date:0171-28-46BI [phone] () [address] [place] [address]OZ: 05/12/2017 Secondary NOT GIVENUNK Gabriela Insurance:SELF PAY [facility] Number: Effective Repository Date:2017-05-12 05/05/2017 ANGY A Primary Insurance:UMR ANGY A Gabriela [id number] YOCASTA [id number] MCCOLLOUGHDOB: [facility] Number: [id number], [place] [id number] Repository 31358Hjw: (730) Date:8075-73-21SW [phone] () [address] [place] [address]BO: 05/05/2017 Secondary NOT GIVENUNK Gabriela Insurance:SELF PAY [facility] Number: Effective Repository Date:2017-05-05 04/23/2017 Angy A Primary Insurance:UMR Angy A Gabriela [id number] YOCASTA [id number] MccolloughDOB: [facility] Vince Number: [id number], [place] [id number] Repository 57713Zqq: (330) Date:7245-86-78NK [phone] () [address] [place] [address]YD: 04/23/2017 Secondary NOT GIVENUNK Gabriela Insurance:SELF PAY [facility] Number: Effective Repository Date:2017-04-23 04/23/2017 Angy A Primary Insurance:UMR Angy A Gabriela [id number] YOCASTA [id number] CarsonDOB: [facility] Number: [id number], [place] [id number] Repository 10153Jbe: (330) Date:3690-30-87HI [phone] () [address] [place] [address]YH: 04/23/2017 Secondary NOT GIVENUNK Hewitt Insurance:SELF PAY [facility] Number: Effective Repository Date:2017-04-22 04/21/2017 Angy A Primary Insurance:UMR Angy A Hewitt [id number] YOCASTA [id number] MccrahulDOB: [facility] Number: [id number], [place] [id number] Repository 93161Yim: (330) Date:9630-70-44BT [phone] () [address] [place] [address]ES: 04/21/2017 Secondary NOT GIVENUNK Gabriela Insurance:SELF PAY [facility] Number: Effective Repository Date:2017-04-21
== END ==
PROVIDERS: Internal Medicine Cardiovascular Disease; Family Provider Internal Medicine; PCP Internal Medicine; Referring Provider Internal Medicine; Visit Provider Internal Medicine
DX: E03.9 Hypothyroidism, unspecified (principal); R07.9 Chest pain, unspecified
CPT/HCPCS: 36415; 80048; 80061; 83735

== ENCOUNTER → 2018-04-12 06:10 | Outpatient (CLI) | payer OTHER, SELFPAY ==
[2018-03-24 14:00] VITALS: BMI 34.5
[2018-04-06 15:06] VITALS: BMI 34.5
--- NOTE | 2018-04-12 06:15 | ECHOCS_ITS ---
Reason For Study: Arrhythmia Procedure This was a 2D Doppler, Color Flow transthoracic echocardiogram. Contrast injection was performed. Exam performed in department. Left Ventricle Normal LV size. Mild concentric left ventricular hypertrophy. The estimated ejection fraction is 50 %. No evidence for diastolic dysfunction. No regional wall motion abnormalities noted. Right Ventricle Normal RV size. Mild global right ventricular systolic dysfunction. Atria The left atrium is mildly enlarged. Normal right atrium. Mitral Valve Normal mitral valve. Tricuspid Valve Normal tricuspid valve. Mild (1+) tricuspid valve insufficiency. Pulmonary artery systolic pressure is 25 mmHg. Aortic Valve Normal aortic valve. Trisinus/trileaflet aortic valve. Pulmonic Valve Normal pulmonic valve. Mild (1+) pulmonic valve insufficiency. Great Vessels Mildly dilated aortic root. The pulmonary artery is normal size. Normal inferior vena cava. Pericardium/Pleural No pericardial effusion. Medication 22 gauge I.V. with prn adaptor inserted into right arm. Diluted definity 3ml given slow IV push to enhance endocardial definition. MMode/2D Measurements & Calculations LVIDd: 5.3 cm IVSd: 1.3 cm Ao root diam: 4.2 cm LVIDs: 3.7 cm LVPWd: 1.2 cm LA dimension: 3.6 cm RVDd: 3.6 cm FS: 29.9 % LAV(MOD-bp): 79.9 ml LVAd ap4: 37.4 cm2 SV(MOD-sp4): 78.5 ml LAV(MOD-bp) Indexed: 33.8 ml/m2 EDV(MOD-sp4): 132.0 ml LAV(MOD-sp2): 79.4 ml EDV(sp4-el): 134.0 ml LAV(MOD-sp4): 84.6 ml LVAs ap4: 21.1 cm2 ESV(MOD-sp4): 53.5 ml ESV(sp4-el): 53.7 ml EF(MOD-sp4): 59.5 % EF(sp4-el): 59.9 % SV(sp4-el): 80.3 ml LA A4 area: 24.2 cm2 RA A4 area: 20.6 cm2 Time Measurements MV dec time: 0.22 sec Doppler Measurements & Calculations MV E max demar: 66.0 cm/sec Lat Peak E' Demar: 12.3 cm/sec Med Peak E' Demar: 12.6 cm/sec MV A max demar: 52.4 cm/sec E/E' lat: 5.4 E/E' med: 5.2 MV E/A: 1.3 MV V2 max: 74.5 cm/sec MV P1/2t max demar: 74.5 cm/sec Ao V2 max: 89.3 cm/sec MV max P.2 mmHg MV P1/2t: 105.7 msec Ao max P.2 mmHg MV V2 mean: 40.1 cm/sec MV mean P.75 mmHg MV dec slope: 206.4 cm/sec2 MV V2 VTI: 24.7 cm MVA(P1/2t): 2.1 cm2 LV V1 max: 80.0 cm/sec PA V2 max: 67.3 cm/sec TR max demar: 230.4 cm/sec LV V1 max P.6 mmHg TR max P.2 mmHg Interpretation Summary Normal LV size. Mild concentric left ventricular hypertrophy. The estimated ejection fraction is 50 %. Mildly dilated aortic root. No evidence for diastolic dysfunction. The left atrium is mildly enlarged. Mild (1+) tricuspid valve insufficiency. Compared to prior study, there is no significant change. Ordering Physician: Robert Graham Referring Physician: Neo Tarango Performed By: Cm Morel RCS
--- NOTE | 2018-04-12 17:37 | STRESSREP ---
Stress Test Report Exercise myocardial perfusion stress test. 58-year-old man with a history of chest pain. Medications Flonase levothyroxine. Stress protocol: Resting EKG demonstrates normal sinus rhythm with a rate of 68 bpm normal intervals are noted resting blood pressure 116/70 mmHg. The patient exercised according to regular Surjit protocol for total duration of 7 minutes completing 1 minute into stage III of the Surjit protocol. The maximum heart rate attained was 171 bpm which was 104% of maximum predicted heart rate the maximum workload was 8.5 metabolic equivalents. The patient maintained sinus rhythm throughout the recording with frequent premature ventricular complexes some in the pattern of quadrigeminy. At rest there were no EKG changes noted and at peak exercise upsloping ST changes only were noted we did not meet the criteria for ischemia. During recovery premature ventricular complexes were noted some in couplets. The resting blood pressure 116/70 with a peak blood pressure 180/80 mmHg. Myocardial perfusion protocol. 14.9 mCi of technetium 99m sestamibi was injected at rest. The patient exercised according to regular Surjit protocol for total duration of 7 minutes. At peak exercise 44.8 mCi of technetium 99m sestamibi was injected stress images were obtained stress and rest images were reconstructed and compared in the short axis vertical long and horizontal long axis. Gated images were also obtained per Perfusion SPECT analysis: Review of the stress images demonstrate fairly uniform uptake of tracer noted in areas of the myocardium. No areas of reversibility are noted suggest ischemia. No previous infarct is noted. Gated SPECT analysis: The gated ejection fraction is noted to be 59%. Conclusion: Normal exercise myocardial fusion stress test at a moderate workload. Frequent unifocal premature ventricular complexes noted. No clinical angina or chest pain noted. Preserved ejection fraction
--- OUTSIDE RECORDS SUMMARY | 2018-07-14 16:19 | XMS RPT_ITS ---
:1960 Author Organization OHIP Support Name Relationship Address Phone ALLIWILD GOELYN Unavailable [address] + [place] [address] SMIDA Unavailable [address] + [address] [place] [address] ERICK CARSON Unavailable [address] + [place] [address] SMIDA Unavailable [address] + [address] [place] [address] ERICK CARSON Unavailable [address] + [place] [address] SMIDA Unavailable [address] + [address] [place] [address] ERICK CARSON Unavailable [address] + [place] [address] SMIDA Unavailable [address] + [address] [place] [address] SMIDA Unavailable [address] + [address] [place] [address] SMIDA Unavailable [address] + [address] [place] [address] ERICK CARSON Unavailable [address] + [place] [address] SMIDA Unavailable [address] + [address] [place] [address] ERICK CARSON Unavailable [address] + [place] [address] SMIDA Unavailable [address] + [address] [place] [address] ALLI, ERICK Unavailable [address] + [place] [address] SMIDA Unavailable [address] + [address] [place] [address] ALLI, ERICK Unavailable [address] + [place] [address] SMIDA Unavailable [address] + [address] [place] [address] ALLI, ERICK Unavailable [address] + [place] [address] SMIDA Unavailable [address] + [address] [place] [address] ALLI, ERICK Unavailable [address] + [place] [address] SMIDA Unavailable [address] + [address] [place] [address] ALLI, ERICK Unavailable [address] + [place] [address] SMIDA Unavailable [address] + [address] [place] [address] ALLI, ERICK Unavailable [address] + [place] [address] SMIDA Unavailable [address] + [address] [place] [address] ALLI, ERICK Unavailable [address] + [place] [address] SMIDA Unavailable [address] + [address] [place] [address] ALLI, ERICK Unavailable [address] + [place] [address] SMIDA Unavailable [address] + [address] [place] [address] ALLI, ERICK Unavailable [address] + [place] [address] SMIDA Unavailable [address] + [address] [place] [address] ALLI, ERICK Unavailable [address] + [place] [address] SMIDA Unavailable [address] + [address] [place] [address] [facility], ERICK Unavailable [address] + [place] [address] SMIDA Unavailable [address] + [address] [place] [address] [facility], ERICK Unavailable [address] + [place] [address] SMIDA Unavailable [address] + [address] [place] [address] ALLI, ERICK Unavailable [address] + [place] [address] SMIDA Unavailable [address] + [address] [place] [address] ALLI, ERICK Unavailable [address] + [place] [address] SMIDA Unavailable [address] + [address] [place] [address] [facility], ERICK Unavailable [address] + [place] [address] SMIDA Unavailable [address] + [address] [place] [address] Care Team Providers Name Role Phone Link Harrison Attending Unavailable Link Harrison Referring Unavailable Oleghe, Efewongbe Primary Care Unavailable Oleghe, Efewongbe Attending Unavailable Oleghe, Efewongbe Referring Unavailable Oleghe, Efewongbe Primary Care Unavailable Link Harrison Attending Unavailable Oleghe, Efewongbe Referring Unavailable Oleghe, Efewongbe Primary Care Unavailable Santos, Renton Attending Unavailable Santos, Renton Referring Unavailable Link Harrison Attending Unavailable Oleghe, Efewongbe Primary Care Unavailable Link Harrison Referring Unavailable Santos, Renton Attending Unavailable Santos, Robert Referring Unavailable Oleghe, Efewongbe Primary Care Unavailable Oleghe, Efewongbe Attending Unavailable Oleghe, Efewongbe Referring Unavailable Link Harrison Attending Unavailable Oleghe, Efewongbe Referring Unavailable Oleghe, Efewongbe Primary Care Unavailable Link Harrison Attending Unavailable Oleghe, Efewongbe Referring Unavailable Oleghe, Efewongbe Primary Care Unavailable Link Harrison Attending Unavailable Oleghe, Efewongbe Referring Unavailable Oleghe, Efewongbe Primary Care Unavailable Link Harrison Attending Unavailable Oleghe, Efewongbe Referring Unavailable Oleghe, Efewongbe Primary Care Unavailable Alex, Link Attending Unavailable Oleghe, Efewongbe Referring Unavailable Alex, Link Attending Unavailable Alex, Link Referring Unavailable Oleghe, Efewongbe Primary Care Unavailable Link Harrison Consulting Unavailable Link Harrison Attending Unavailable Alex, Link Referring Unavailable Oleghe, Efewongbe Primary Care Unavailable Denny Trinidad GRINDING ROOM INSPECTOR-C Attending Unavailable Trinidad, Denny GRINDING ROOM INSPECTOR-C Referring Unavailable Oleghe, Efewongbe Primary Care Unavailable Denny Trinidad GRINDING ROOM INSPECTOR-C Attending Unavailable Oleghe, Efewongbe Referring Unavailable Oleghe, Efewongbe Primary Care Unavailable Link Harrison Admitting Unavailable Alex, Link Referring Unavailable Oleghe, Efewongbe Primary Care Unavailable Hari Coker Consulting Unavailable Melissa Ordonez Attending Unavailable Cruz Ortiz Consulting Unavailable Oleghe, Efewongbe Attending Unavailable Oleghe, Efewongbe Referring Unavailable Oleghe, Efewongbe Primary Care Unavailable Santos, Robert Attending Unavailable Oleghe, Efewongbe Referring Unavailable Colleen Olvera Attending Unavailable Denny Trinidad GRINDING ROOM INSPECTOR-C Attending Unavailable Trinidad, Denny GRINDING ROOM INSPECTOR-C Referring Unavailable Oleghe, Efewongbe Primary Care Unavailable Denny Trinidad GRINDING ROOM INSPECTOR-C Attending Unavailable Oleghe, Efewongbe Primary Care Unavailable Francisco Hughes Attending Unavailable Oleghe, Efewongbe Primary Care Unavailable PROBLEMS PROBLEMS DATE TYPE CONDITION / CODE ATTENDING STATUS SOURCE 05/04/2018 Unknown R07.9 - Chest pain, Santos, Robert Active [place] unspecified / Community R07.9(ICD-10) Hospital Repository 03/25/2018 Unknown E03.9 - Oleghe, Active [place] Hypothyroidism, Efewongbe Community unspecified / Hospital E03.9(ICD-10) Repository 03/24/2018 Unknown I25.119 - Santos, Renton Active [place] 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 Repository unspecified angina pectoris / I25.119(ICD-10) 03/24/2018 Unknown I47.1 - Santos, Renton Active [place] Supraventricular Community tachycardia / Hospital I47.1(ICD-10) Repository 03/24/2018 Unknown I49.3 - Ventricular Santos, Renton Active [place] premature Community depolarization / Hospital I49.3(ICD-10) Repository 03/24/2018 Unknown R00.2 - Palpitations / Santos, Renton Active [place] R00.2(ICD-10) Community Hospital Repository 03/24/2018 Unknown R06.00 - Dyspnea, Santos, Robert Active [place] unspecified / Community R06.00(ICD-10) Hospital Repository 08/18/2017 Unknown M25.661 - Stiffness of Link Harrison Active [place] right knee, not Community elsewhere classified / Hospital M25.661(ICD-10) Repository 07/29/2017 Unknown Z98.890 - Other Link Harrison Active [place] specified Community postprocedural states Hospital / Z98.890(ICD-10) Repository 06/22/2017 Unknown M25.561 - Pain in Link Harrison Active [place] right knee / Community M25.561(ICD-10) Hospital Repository 05/17/2017 Unknown M17.11 - Unilateral Sementi, Active [place] primary [facility] osteoarthritis, right Hospital knee / M17.11(ICD-10) Repository PROCEDURES PROCEDURES No Procedure Records FoundRESULTS RESULTS STRESS REPORT Observed: 04/12/2018 Status: F Source: [place] 5:40 PM [facility] REPOSITORY [facility] Cardiovascular Services [address] [place] [address] MR#: [id number] Acct: [id number] Name: ANGY CARSON Rep #: [id number] : 1960 58 From: Robert Graham MD Primary Care: Neo Tarango MD Status: REG CLI Ordering Dr: Reena: M C Stress Test Report Exercise myocardial perfusion stress [...] chest pain noted. Preserved ejection fraction 04/12/18 1740 <Electronically signed by Robert Graham MD> Date Robert Graham MD CC: Robert Graham MD; Neo Tarango MD Date Dictated: 04/12/181736 Date Transcribed: 04/12/181736 Tile Decorator: CO Signed ECHO, COMPLETE W/ Observed: 04/12/2018 Status: F Source: [place] CONTRAST 12:16 PM [facility] REPOSITORY [facility] Cardiovascular Services [address] [place] [address] Echo Complete W/ Contrast 04/12/18 0951 MR#: [id number] Acct: [id number] Name: ANGY CARSON Rep #: [id number] : 1960 58 From: Robert Graham MD Attending Dr: Robert Graham MD Status: REG CLI Ordering Dr: Robert Graham MD Date: 04/12/18 Location: [facility] Sex: M C Admitted: Reason For Study: [...] Doppler Measurements AND Calculations MV E max demar: 66.0 cm/sec Lat Peak E' Demar: 12.3 cm/sec Med Peak E' Demar: 12.6 cm/sec MV A max demar: 52.4 cm/sec E/E' lat: 5.4 E/E' med: 5.2 MV E/A: 1.3 MV V2 max: 74.5 cm/sec MV P1/2t max demar: 74.5 cm/sec Ao V2 max: 89.3 cm/sec MV max P.2 mmHg MV P1/2t: 105.7 msec Ao max P.2 mmHg MV V2 mean: 40.1 cm/sec MV mean P.75 mmHg MV dec slope: 206.4 cm/sec2 MV V2 VTI: 24.7 cm MVA(P1/2t): 2.1 cm2 LV V1 max: 80.0 cm/sec PA V2 max: 67.3 cm/sec TR max demar: 230.4 cm/sec LV V1 max P.6 mmHg [...] Date Dictated: 04/12/18 0951 Date Transcribed: 04/12/18 121 Tile Decorator: Signed INTERNAL MEDICINE Observed: 04/06/2018 Status: F Source: [place] OFFICE VISIT 4:46 PM [facility] REPOSITORY [facility] [address] [place] [address] OFFICE VISIT Date of Service: 04/06/18 MR#: [id number] Acct: [id number] Name: ANGY CARSON Rep #: [id number] : 1960 Provider: Neo Tarango MD Age/Sex: 58/M Location: [facility] Status: Signed Intake Vital Signs04/06/18 Body Mass Index (BMI) 34.5 04/06/18 Height 6 ft Intake Visit Reasons: 3 MO FU Chief Complaint: follow-up visit Is patient in pain?: No Allergies No Known Allergies Allergy (Verified 03/24/18 14:01) Medications Fluticasone 0.05% [Flonase Nasal Troy] 1 spray NASAL DAILY 05/05/17 [History Confirmed [...] Will follow. This note was generated with PingThingsation software. It may contain incorrect words, spelling, and punctuation that were not noted in checking the note before signing. Coding Level of Care Code Off vis,est,level 3 Diagnoses Anxiety F41.9 Hypothyroidism E03.9 Celiac disease K90.0 Chest pain R07.9 04/06/18 1646 <Electronically signed by Neo Tarango MD> Date Neo Tarango MD Cosigner Signature: Date (if applicable) CC: CARDIOLOGY VISIT Observed: 03/30/2018 Status: F Source: [place] REPORT 10:14 AM [facility] REPOSITORY [facility] [address] [place] [address]. [address] [place] [address] OFFICE VISIT Date of Service: 03/24/18 MR#: [id number] Acct: [id number] Name: ANGY CARSON Rep #: [id number] : 1960 Provider: Robert Graham MD Age/Sex: 58/M [facility] Status: Signed HPI [facility] Chief Complaint: Initial visit Details: ANGY CARSON, [...] 03/24/18 14:01) Medications Fluticasone 0.05% [Flonase Nasal [place]] 1 spray NASAL DAILY 05/05/17 [History Confirmed 03/24/18] avanafil 100 mg tablet 100 mg PO QDAY PRN #7 tab 07/09/17 [Rx Confirmed 03/24/18] levothyroxine 200 mcg tablet 200 mcg PO DAILY #90 tab 11/20/17 [Rx Confirmed 03/24/18] escitalopram 10 mg tablet 10 mg PO DAILY #90 tab 03/17/18 [Rx Confirmed 03/24/18] [facility] Medical History PVC (premature ventricular contraction) (Chronic) [...] F Source: [place] PROFILE (BMP) 12:47 PM [facility] REPOSITORY TYPE CODE TESTS RESULT OUT OF [...] 7 Performed By: #### L500.2500, L501.5200 #### [facility] [address] [place], [address] MAGNESIUM Collected: 03/25/2018 Status: F Source: [place] 12:47 PM [facility] REPOSITORY TYPE CODE TESTS RESULT OUT OF RANGE REFERENCE UNITS LAB L501.5200 1.6-2.6 mg/dL Normal MG 2.1 Performed By: #### L500.2500, L501.5200 #### [facility] [address] [place], [address] LIPID PROFILE Collected: 03/25/2018 Status: F Source: [place] 12:47 PM [facility] REPOSITORY Order Comment: Comments: Fasting Comments: Fasting [...] VLDL 41 Performed By: #### L500.4100 #### [facility] [address] [place], [address] 12 LEAD EKG PERFORMED Observed: 03/24/2018 Status: F Source: [place] [facility] 2:25 PM [facility] REPOSITORY [facility] [address] [place] [address] 12 Lead EKG performed by [facility] 03/24/181421 MR#: [id number] Acct: [id number] Name: ANGY CARSON Rep #: [id number] : 1960 58 From: Robert Graham MD Attending Dr: Robert Graham MD Status: DEP AMB Ordering Dr: Robert Graham MD Date: 03/24/18 Location: [facility] Sex: M C Admitted: [facility]12 Lead EKG performed by [facility] ECG Report Interpretation Sinus Rhythm WITHIN NORMAL LIMITSElectronically signed on 04/08/2018 at 11:34 by Robert Graham Trait[employer] Software Version 8610 04/08/18 1141 Date Robert Graham MD CC: Neo Tarango MD Date Dictated: 03/24/181421 Date Transcribed: 03/24/181421 Tile Decorator: CO Signed INTERNAL MEDICINE Observed: 01/12/2018 Status: F Source: [place] OFFICE VISIT 5:16 PM [facility] Internal Medicine [address] [place] [address] OFFICE VISIT Date of Service: 01/12/18 MR#: [id number] Acct: [id number] Name: ANGY CARSON Rep #: [id number] : 1960 Provider: Neo Tarango MD Age/Sex: 57/M Location: [facility] Status: Signed Intake Vital Signs01/12/18 Height 6 ft Intake Visit Reasons: 6 mo f/u screen [place]GINA Chief Complaint: follow-up visit Is patient in pain?: No Allergies No Known Allergies Allergy (Verified 09/02/17 15:25) Medications Escitalopram Oxalate [Lexapro] 10 mg PO DAILY 05/05/17 [History Confirmed 01/12/18] Fluticasone 0.05% [Flonase Nasal Troy] 1 spray NASAL DAILY 05/05/17 [History Confirmed [...] also recommended. This note was generated with Portero dictation software. It may contain incorrect words, spelling, and punctuation that were not noted in checking the note before signing. Coding Level of Care Code Off vis,est,level 3 Diagnoses Hypothyroidism E03.9 Anxiety F41.9 Celiac disease K90.0 Healthcare maintenance Z00.00 01/12/18 9011 <Electronically signed by Neo Tarango MD> Date Neo Lucas Signature: Date (if applicable) CC: THYROID STIM HORMONE Collected: 01/06/2018 Status: F Source: [place] (TSH) 12:03 PM [facility] REPOSITORY TYPE CODE TESTS RESULT OUT OF RANGE REFERENCE UNITS LAB L501.9520 0.358-3.74 uIU/mL Normal TSH 0.61 Performed By: #### L501.9520, L506.0400 #### [facility] [address] [place], [address] T4 FREE DIRECT Collected: 01/06/2018 Status: F Source: [place] 12:03 PM [facility] REPOSITORY TYPE CODE TESTS RESULT OUT OF RANGE REFERENCE UNITS LAB L506.0400 0.76-1.46 ng/dL Normal T4 FREE 1.02 DIRECT Performed By: #### L501.9520, L506.0400 #### [facility] [address] [facility] [place], [address] ORTHOPEDIC VISIT Observed: 11/02/2017 Status: F Source: [place] REPORT 2:52 PM [facility] REPOSITORY [facility] Orthopaedics AND Sports Medicine [address] [place] [address] OFFICE VISIT Date of Service: 10/14/17 MR#: [id number] Acct: [id number] Name: ANGY CARSON Rep #: [id number] : 1960 Provider: Link Harrison DO Age/Sex: 57/M Location: [facility] Status: Signed Intake Intake Visit Reasons: RIGHT KNEE Is patient in pain?: No Allergies No Known Allergies Allergy (Verified 09/02/17 15:25) Medications Levothyroxine [Synthroid] 200 mcg PO DAILY 04/21/17 [History Confirmed 10/14/17] Escitalopram Oxalate [Lexapro] 10 mg PO DAILY 05/05/17 [History Confirmed 10/14/17] Fluticasone 0.05% [Flonase Nasal [place]] 1 spray NASAL DAILY 05/05/17 [History Confirmed [...] extension but 90 degrees of flexion. ROS Musc Reports as per HPI, Reports limited joint [...] refer him to Dr. Ortiz at the [place] [facility] Coding Level of Care Code Global Post Op Diagnoses Orthopedic aftercare Z47.89 Stiffness of right knee M25.661 History of total right knee replacement (TKR) Z96.651 11/02/17 1452 <Electronically signed by Link Harrison DO> Date Link Delgadillo Signature: Date (if applicable) CC: ORTHOPEDIC VISIT Observed: 09/16/2017 Status: F Source: [place] REPORT 7:59 AM [facility] REPOSITORY [facility] Orthopaedics AND Sports Medicine [address] [place] [address] OFFICE VISIT Date of Service: 09/02/17 MR#: [id number] Acct: [id number] Name: ANGY CARSON Rep #: [id number] : 1960 Provider: Link Harrison DO Age/Sex: 57/M Location: [facility] Status: Signed Intake Intake Visit Reasons: RIGHT KNEE Is patient in pain?: No Allergies No Known Allergies Allergy (Verified 09/02/17 15:25) Medications Levothyroxine [Synthroid] 200 mcg PO DAILY 04/21/17 [History Confirmed 08/12/17] Escitalopram Oxalate [Lexapro] 10 mg PO DAILY 05/05/17 [History Confirmed 08/12/17] Fluticasone 0.05% [Flonase Nasal Troy] 1 spray NASAL DAILY 05/05/17 [History Confirmed 08/12/17] ixekizumab 80 mg/mL subcutaneous auto-injector 80 mg SC Q4W 07/07/17 [History Confirmed 08/12/17] avanafil 100 mg tablet 100 mg PO QDAY PRN #7 tab 07/09/17 [Rx Confirmed 08/12/17] Docusate Sodium [Colace] 100 mg PO BID PRN PRN #10 cap 08/18/17 [Rx] Hydrocodone Bitart/Apap 5-325 [[place] 5/325] 1 - 2 tab PO Q6H [...] DO Cosigner Signature: Date (if applicable) CC: OPERATIVE REPORT Observed: 08/18/2017 Status: F Source: [place] 9:27 AM [facility] REPOSITORY [facility] Medical Records Department [address] [place] [address] Operative Report 08/18/17 0924 MR#: [id number] Acct: [id number] Name: ALLIANGY Supa Rep #: [id number] : 1960 57 From: Link Hrarison DO PCP: Neo Tarango MD Status: REG [facility] Location: [place] [address] Report of Operation Date of Procedure: 08/18/17 [...] no drains or complications and no implants enamel sprayer: NONE Type of Anesthesia:: General Specimen's removed: [...] 08/18/2017 Status: F Source: [place] 7:02 AM [facility] REPOSITORY [facility] Medical Records Department [address] [place] [address] Instructions for Home/Discharge Instructions 08/18/17 0701 MR#: [id number] Acct: [id number] Name: ALLIANGY Supa Rep #: [id number] : 1960 57 From: Link Harrison DO [...] PO DAILY 05/05/17 Fluticasone 0.05% [Flonase Nasal Troy] 1 spray NASAL DAILY 05/05/17 ixekizumab 80 mg/mL subcutaneous auto-injector 80 mg SC Q4W 07/07/17 avanafil 100 mg tablet 100 mg PO QDAY PRN #7 tab 07/09/17 Docusate Sodium [Colace] 100 mg PO BID PRN PRN #10 cap 08/18/17 Hydrocodone Bitart/Apap 5-325 [[place] 5/325] 1 - 2 tablet PO Q6H PRN PRN #30 tablet 08/18/17 MethylPREDNISolone DosePak [Medrol DosePak] 4 mg PO UD #1 box 08/18/17 proMETHazine tablet [Phenergan] 25 mg PO Q4H PRN PRN #10 tab 08/18/17 The following prescriptions were given: proMETHazine tablet [Phenergan] 25 mg PO Q4H PRN PRN #10 tab PRN Reason: Nausea Hydrocodone Bitart/Apap 5-325 [[place] 5/325] 1 - 2 tablet PO Q6H [...] for 2 weeks Proposed Discharge Date: 08/18/17 08/18/17701 <Electronically signed by Link Harrison DO> Date Link Harrison DO CC: Neo Tarango MD ORTHOPEDIC VISIT Observed: 08/10/2017 Status: F Source: [place] REPORT 2:43 PM [facility] REPOSITORY [facility] Orthopaedics AND Sports Medicine [facility] [facility] [address] [place] [address] OFFICE VISIT Date of Service: 08/10/17 MR#: [id number] Acct: [id number] Name: ANGY CARSON Rep #: [id number] : 1960 Provider: Link Harrison DO Age/Sex: 57/M Location: [facility] Status: Signed Intake Intake Visit Reasons: right knee Is patient in pain?: No Allergies No Known Allergies Allergy (Verified 05/25/17 14:04) Medications Levothyroxine [Synthroid] 200 mcg PO DAILY 04/21/17 [History Confirmed 05/25/17] Escitalopram Oxalate [Lexapro] 10 mg PO DAILY 05/05/17 [History Confirmed 05/25/17] Fluticasone 0.05% [Flonase Nasal Troy] 1 spray NASAL DAILY 05/05/17 [History Confirmed 05/25/17] ixekizumab 80 mg/mL subcutaneous auto-injector 80 mg SC Q4W 07/07/17 [History Confirmed 07/07/17] avanafil 100 mg tablet 100 mg PO QDAY PRN #7 tab 07/09/17 [Rx] PFSH Medical History Seasonal allergies (Chronic) [...] SUMMARY (1) Observed: 07/24/2017 Status: F Source: [place] 5:03 PM [facility] REPOSITORY [facility] Physical Therapy Health[address] [place] [address] Fax REHABILITATION SERVICES DISCHARGE SUMMARY MR#: [id number] Acct: [id number] Name: ANGY CARSON Rep #: [id number] : 1960 57 From: Cuca Urrutia PT, Cert. MDT Referring DrBiju: Link Harrison DO Status: REG RCR Insurance: [employer] [place] [id number] SELF PAY INSURANCE HP - PT D/C [...] OFF SOME OF THE EX'S AT THE [facility] TOO. STATES HE CAN CONTINUE [...] please feel free to call me at [phone]. Thank you for the referral of this patient. Sincerely, Cuca Urrutia <Electronically signed by Cuca Urrutia PT, Cert. MDT> 07/24/17 1709 CC: Neo Tarango MD; Link Harrison DO SO Signed THYROID STIM HORMONE Collected: 07/13/2017 Status: F Source: [place] (TSH) 1:29 PM [facility] REPOSITORY TYPE CODE TESTS RESULT OUT OF RANGE REFERENCE UNITS LAB L501.9520 0.358-3.74 uIU/mL Normal TSH 0.41 Performed By: #### L501.9520, L506.0400 #### [facility] [address] [place], [address] T4 FREE DIRECT Collected: 07/13/2017 Status: F Source: [place] 1:29 PM [facility] REPOSITORY TYPE CODE TESTS RESULT OUT OF RANGE REFERENCE UNITS LAB L506.0400 0.76-1.46 ng/dL Normal T4 FREE 1.34 DIRECT Performed By: #### L501.9520, L506.0400 #### [facility] [address] [place], [address] THYROID STIM HORMONE Collected: 07/08/2017 Status: F Source: [place] (TSH) 11:34 AM [facility] REPOSITORY TYPE CODE TESTS RESULT OUT OF RANGE REFERENCE UNITS LAB L501.9520 0.358-3.74 uIU/mL Low TSH 0.32 Performed By: #### L501.9520, L506.0400 #### [facility] [address] [place], [address] T4 FREE DIRECT Collected: 07/08/2017 Status: F Source: [place] 11:34 AM [facility] REPOSITORY TYPE CODE TESTS RESULT OUT OF RANGE REFERENCE UNITS LAB L506.0400 0.76-1.46 ng/dL Normal T4 FREE 1.23 DIRECT Performed By: #### L501.9520, L506.0400 #### [facility] [address] [place], [address] INTERNAL MEDICINE Observed: 07/07/2017 Status: F Source: [place] OFFICE VISIT 4:07 PM [facility] REPOSITORY [facility] [address] [place] [address] OFFICE VISIT Date of Service: 07/07/17 MR#: [id number] Acct: [id number] Name: ALLIANGY Supa Rep #: [id number] : 1960 Provider: Denny Trinidad NP Age/Sex: 57/M Location[place] [facility] Status: Signed Intake Vital Signs07/07/17 Height 6 ft Intake Visit Reasons: 6 mo fu Chief Complaint: follow-up visit Is patient in pain?: No Allergies No Known Allergies Allergy (Verified 05/25/17 14:04) Medications Levothyroxine [Synthroid] 200 mcg PO DAILY 04/21/17 [History Confirmed 05/25/17] Escitalopram Oxalate [Lexapro] 10 mg PO DAILY 05/05/17 [History Confirmed 05/25/17] Fluticasone 0.05% [Flonase Nasal Troy] 1 spray NASAL DAILY 05/05/17 [History Confirmed 05/25/17] ixekizumab 80 mg/mL subcutaneous auto-injector 80 mg SC Q4W 07/07/17 [History Confirmed 07/07/17] sildenafil 50 mg tablet 50 mg PO QDAY PRN #6 tab 07/07/17 [Rx Confirmed 07/07/17] PFS Medical History (Reviewed 07/07/17 @ 4:00 pm [...] D insufficiency and has not started an sngz-klf-gycmzpq treatment. Advised to take 2000 units of vitamin D daily. 4. Depression with anxiety F41.8 Plan Well-controlled on current SSRI therapy, no changes at this time. This note was generated with PingThingsation software. It may contain incorrect words, spelling, [...] Status: F Source: GABRIELA REPORT 1:51 PM [facility] REPOSITORY [facility] Orthopaedics AND Sports Medicine [address] [place] [address] OFFICE VISIT Date of Service: 06/22/17 MR#: [id number] Acct: [id number] Name: ANGY CARSON Rep #: [id number] : 1960 Provider: Link Harrison DO Age/Sex: 57/M [place] [facility] [place] [place] Status: Signed Intake Intake Visit Reasons: right knee Is patient in pain?: No Allergies No Known Allergies Allergy (Verified 05/25/17 14:04) Medications Levothyroxine [Synthroid] 200 mcg PO DAILY 04/21/17 [History Confirmed 05/25/17] Escitalopram Oxalate [Lexapro] 10 mg PO DAILY 05/05/17 [History Confirmed 05/25/17] Fluticasone 0.05% [Flonase Nasal Troy] 1 spray NASAL DAILY 05/05/17 [History Confirmed [...] SC ONCE ml 05/25/17 [History Confirmed 05/25/17] [facility] Medical History Thyroid disease (Chronic) Surgical History [...] OR MORE Observed: 06/22/2017 Status: F Source: CANDOR VIEWS 12:42 PM [facility] REPOSITORY [facility] Imaging Services [address] [place] [address] Knee 4 or More Views MR#: [id number] Acct: [id number] Name: ANGY CARSON Supa Rep #: [id number] : 1960 M 57 From: Gertrude Christy MD PCP: Neo Tarango MD Status: REG CLI Study: Knee 4 or More Views Date of Exam: 06/22/17 Exam# [id number] Ordering Dr: Link Harrison DO STUDY: X-RAY [...] CC: Neo Tarango MD; Link Harrison DO Tile Decorator: Signed RE-EVALUATION - PT (1) Observed: 06/17/2017 Status: F Source: CANDOR 6:14 PM [facility] REPOSITORY [facility] Physical Therapy [facility] [address] [place] [address]. [address] [place] [address] Fax REEVALUATION / MEDICARE RECERTIFICATION PHYSICAL THERAPY MR#: [id number] Acct: [id number] Name: ANGY CARSON Rep #: [id number] : 1960 57 From: Cuca Urrutia PT, Cert. T Referring DrBiju: Link Harrison DO Status: REG RCR Insurance: UMR [place] [id number] SELF PAY INSURANCE Link Harrison DO, MTODD It has been my pleasure to treat [...] do not hesitate to contact me at [phone] by phone or if you have questions or concerns regarding this new plan of care! Sincerely, Cuca Urrutia <Electronically signed by Cuca Urrutia PT, Cert. MDT> 06/17/17 3515 CC: Neo Tarango MD; Link Harrison DO SO Signed For Medicare only, by signing this I certify the plan of care. Physicians Signature Date CBC W/DIFF, AUTOMATED Collected: 06/10/2017 Status: F Source: GABRIELA 11:35 AM [facility] REPOSITORY TYPE CODE TESTS RESULT OUT OF [...] Lymph 2.11 Performed By: #### L100.0100 #### [facility] Laboratory [address] [place], [place], [id number] LIVER PROFILE Collected: 06/10/2017 Status: F Source: CANDOR 11:35 [facility] REPOSITORY TYPE CODE TESTS RESULT OUT OF [...] BILI 0.10 Performed By: #### L500.3400 #### [facility] Laboratory [address] [place], [address] QUANTIFERON TB-GOLD Collected: 06/10/2017 Status: F Source: CANDOR 11:35 [facility] REPOSITORY TYPE CODE TESTS RESULT OUT OF [...] . IU/mL > Normal QFT MITOGEN 10.00 [facility] L3400.7075 . IU/mL Normal QFT AG [...] for further details. Performed at: - [facility] [address] [id number] Latex [employer]am Worker: Kumar Bryant PhD, Phone: [phone] Performed By: #### L3400.7000 #### [facility] (refer to report for specific site) refer to report for address and phone number ORTHOPEDIC VISIT Observed: 05/25/2017 Status: F Source: GABRIELA REPORT 3:25 PM [facility] REPOSITORY [facility] Orthopaedics AND Sports Medicine [address] [place] [address] OFFICE VISIT Date of Service: 05/25/17 MR#: [id number] Acct: [id number] Name: ALLIANGY JARAMILLO Supa Rep #: [id number] : 1960 Provider: Link Harrison DO Age/Sex: 57/M Location: [facility] [place] Status: Signed Intake Intake Visit Reasons: RIGHT KNEE Is patient in pain?: Yes Pain scale (1-10): 2 Allergies No Known Allergies Allergy (Verified 05/25/17 14:04) Medications Levothyroxine [Synthroid] 200 mcg PO DAILY 04/21/17 [History Confirmed 05/25/17] Escitalopram Oxalate [Lexapro] 10 mg PO DAILY 05/05/17 [History Confirmed 05/25/17] Fluticasone 0.05% [Flonase Nasal Troy] 1 spray NASAL DAILY 05/05/17 [History Confirmed [...] F Source: GABRIELA - PT 12:26 PM [facility] REPOSITORY [facility] Physical Therapy [facility]. [address] [place] [address] Fax REHABILITATION SERVICES INITIAL EVALUATION MR#: [id number] Acct: [id number] Name: ANGY CARSON Rep #: [id number] : 1960 57 From: Cuca Urrutia PT, Cert. MDT Referring Dr.: Link Harrison DO Status: REG RCR Insurance: R [place]OCAST[place] [id number] SELF PAY INSURANCE Patient's Visit Information ANGY CARSON is a 57 year old M referred to Physical Therapy by Link Harrison DO DR.MTGARRICK with a diagnosis of S/P RTKR 05/12/17. [...] Subjective: DX: S/P RIGHT TKR 05/12/17. Work/Leisure: [employer] WHICH INVOLVES GETTING IN AND OUT OF A TRUCK A LOT. Disability: NO. Present symptoms: THE WHOLE KNEE. RIGHT PROXIMAL LATERAL THIGH. Present since: YEARS. Pain Scale: WORST 8/10, LEAST 1/10. Currently: 4/10. Commenced as a result of: 1979 FOOTBALL [...] to be FAXED BACK to us at [phone] for Medicare purposes. Please let me know if there are questions or concerns regarding this plan of care. Physician Signature: Date: <Electronically signed by Cuca Urrutia PT, Cert. MDT> 05/22/17 1226 CC: Neo Tarango MD; Link Harrison DO SO Signed For Medicare only, by signing this I certify the plan of care. Physicians Signature Date 12 LEAD ELECTROCARDIOGRAM Observed: 05/22/2017 Status: F Source: CANDOR 11:58 AM [facility] REPOSITORY [facility] Cardiovascular Services [address] [place] [address] 12 Lead EKG 05/14/17 1547 MR#: [id number] Acct: [id number] Name: ANGY CARSON Rep #: [id number] : 1960 57 From: Robert Graham MD Attending Dr: Meilssa Ordonez Status: DIS IN Ordering Dr: Link Harrison DO Date: 05/14/17 Location: [facility]3 Sex: M C Admitted: 05/12/17 Test Reason [...] ventricular complexes are now Present Confirmed by ROBERT GRAHAM MD ([id number]), film and video editor LUIS A MARS ([id number]) on 05/22/2017 11:57:55 AM Referred By: Link Harrison Confirmed By:ROBERT GRAHAM MD 05/22/17 1158 Date Robert Graham MD CC: Neo Tarango MD Signed ALLERGIES ALLERGIES DATE TYPE / CODE NAME / CODE REACTION SEVERITY SOURCE 03/24/2018 Drug No Known Unknown [place] [facility] Allergy/4160 Allergies/F00 Hospital 49244(SNOMED 9434712(RXNOR Repository CT) M) ENCOUNTERS ENCOUNTERS ADMIT/DISCHARGE ACCOUNT ADMITTING ENCOUNTER LOCATION SOURCE NUMBER CLASS 04/12/2018 [id number] Ambulatory BMSBuilding:W [place] 6 [facility] Repository 04/12/2018 [id number] Ambulatory [place] Gab[place]ela 1 [facility] ing:[facility] Repository 04/06/2018/ [id number] Ambulatory BMSBuilding:B [place] 8 6 [facility] Repository 03/25/2018 [id number] Ambulatory [place] 2 [facility] ing:LAB Repository 03/24/2018/ [id number] Ambulatory BMSBuilding:B [place] 8 0 [facility] Repository 03/24/2018 [id number] Ambulatory BMSBuilding:B [place] 0 [facility] Repository 01/12/2018/ [id number] Ambulatory BMSBuilding:B [place] 8 8 [facility] Repository 01/06/2018 [id number] Ambulatory [place] 5 [facility] ing:MTLAB Repository 10/14/2017/ [id number] Ambulatory BMSBuilding:B [place] 8 7 [facility] Repository 09/02/2017/ [id number] Ambulatory BMSBuilding:B [place] 8 1 [facility] Repository 08/27/2017 [id number] Ambulatory BMSBuilding:B [place] 2 [facility] Repository 08/18/2017 [id number] Ambulatory BMSBuilding:B [place] 2 MS.[facility] Repository 08/18/2017/ [id number] Ambulatory [place] 8 7 [facility] ing:SDC Repository 08/10/2017/ [id number] Ambulatory BMSBuilding:B [place] 8 2 [facility] Repository 07/24/2017/ [id number] Ambulatory [place] 8 1 [facility] ing:PT Repository 07/13/2017 [id number] Ambulatory [place] 4 [facility] ing:MTLAB Repository 07/08/2017 [id number] Ambulatory [place] 2 [facility] ing:MTLAB Repository 07/07/2017/ [id number] Ambulatory BMSBuilding:B [place] 8 6 [facility] Repository 06/22/2017 [id number] Ambulatory [place] 2 [facility] ing:HPRAD Repository 06/22/2017/ [id number] Ambulatory BMSBuilding:B [place] 8 1 [facility] Repository 06/10/2017 [id number] Ambulatory [place] 5 [facility] ing:MTLAB Repository 05/25/2017/ [id number] Ambulatory BMSBuilding:B [place] 8 6 [facility] Repository 05/12/2017/ [id number] Link Harrison Inpatient [place] 8 8 Encounter [facility] ing:JF3Zvvj: Repository [id number]: 1 PAYERS PAYERS ENCOUNTER GUARANTOR PAYER SUBSCRIBER SOURCE 04/12/2018 ANGY Cowart Primary Insurance:UMR ANGY A [place] [id number] YOCASTA [id number] OAKES: [facility] Number: [id number], [place] [id number] Repository 65353Iyy: 330) Date:3959-06-99IQ [phone] () [place], [place] [address]VL: 04/12/2018 Secondary NOT GIVENUNK [place] Insurance:SELF PAY [facility] Number: Effective Repository Date:2018-04-12 04/12/2018 ANGY A Primary Insurance:UMR ANGY A [place] [id number] YOCASTA [id number] MCCOLLOUGHDOB: [facility] Number: [id number], [place] [id number] Repository 96695Syq: (330) Date:0423-08-36AF [phone] () [address] [place] [address]FQ: 04/12/2018 Secondary NOT GIVENUNK [place] Insurance:SELF PAY [facility] Number: Effective Repository Date:2018-04-05 04/06/2018 ANGY A Primary Insurance:UMR ANGY A [place] [id number] YOCASTA [id number] MCCOLLOUGHDOB: [facility] Number: [id number], [place] [id number] Repository 16527Qsn: (330) Date:6681-70-50CT [phone] () [address] [place] [address]UA: 04/06/2018 Secondary NOT GIVENUNK [place] Insurance:SELF PAY [facility] Number: Effective Repository Date:2018-04-06 03/25/2018 ANGY A Primary Insurance:UMR ANGY A [place] [id number] YOCASTA [id number] EMREOUGHDOB: [facility] Number: [id number], [place] [id number] Repository 979[address]Hng: (330) Date:8375-62-10KQ [phone] () [address] [place] [address]ON: 03/25/2018 Secondary NOT GIVENUNK [place] Insurance:SELF PAY [facility] Number: Effective Repository Date:2018-03-25 03/24/2018 ANGY A Primary Insurance:UMR ANGY A [place] [id number] YOCASTA [id number] MCCOLLOUGHDOB: [facility] Number: [id number], [place] [id number] Repository 55[address]Vjx: (330) Date:3560-35-21QF [phone] (HP) [address] [place] [phone]: 03/24/2018 Secondary NOT GIVENUNK [place] Insurance:SELF PAY [facility]: Effective Repository Date:2018-03-24 03/24/2018 ANGY A Primary Insurance:UMR ANGY A [place] [id number] YOCASTA [id number] MCCOLLOUGHDOB: [facility] Number: [id number], [place] [id number] Repository 58[address]Qhm: (330) Date:1176-35-01SL [phone] () [address] [place] [phone]: 03/24/2018 Secondary NOT GIVENUNK [place] Insurance:SELF PAY [facility] Number: Effective Repository Date:2018-03-24 01/12/2018 ANGY A Primary Insurance:UMR ANGY A [place] [id number] YOCASTA [id number] MCCOLLOUGHDOB: [facility] Number: [id number], [place] [id number] Repository 427[address]Eqv: (330) Date:2841-92-91ER [phone] () [address] [place] [phone]: 01/12/2018 Secondary NOT GIVENUNK [place] Insurance:SELF PAY [facility] Number: Effective Repository Date:2018-01-12 01/06/2018 ANGY A Primary Insurance:UMR ANGY A [place] [id number] YOCASTA [id number] MCCOLLOUGHDOB: [facility] Number: [id number], [place] [id number] Repository 456[address]Atc: (330) Date:6541-86-46IK [phone] (HP) [address] [place] [phone]: 01/06/2018 Secondary NOT GIVENUNK [place] Insurance:SELF PAY [facility] Number: Effective Repository Date:2018-01-06 10/14/2017 ANGY A Primary Insurance:UMR ANGY A [place] [id number] YOCASTA [id number] MCCOLLOUGHDOB: [facility] Number: [id number], [place] [id number] Repository 539[address]Hel: (330) Date:6439-99-02ZW [phone] () [address] [place] [address]JU: 10/14/2017 Secondary NOT GIVENUNK [place] Insurance:SELF PAY [facility] Number: Effective Repository Date:2017-10-14 09/02/2017 ANGY A Primary Insurance:UMR ANGY A [place] [id number] YOCASTA [id number] EMREOUGHDOB: [facility] Number: [id number], [place] [id number] Repository 777[address]Xpf: (330) Date:0380-77-53EX [phone] () [address] [place] [phone]: 09/02/2017 Secondary NOT GIVENUNK [place] Insurance:SELF PAY [facility] Number: Effective Repository Date:2017-08-18 08/27/2017 ANGY A Primary Insurance:UMR ANGY A [place] [id number] YOCASTA [id number] EMREOUGHDOB: [facility] Number: [id number], [place] [id number] Repository 825[address]Czz: (330) Date:6206-84-61OS [phone] () [address] [place] [phone]: 08/27/2017 Secondary NOT GIVENUNK [place] Insurance:SELF PAY [facility] Number: Effective Repository Date:2017-08-10 08/18/2017 ANGY A Primary Insurance:UMR ANGY A [place] [id number] YOCASTA [id number] MCCOLLOUGHDOB: [facility] Number: [id number], [place] [id number] Repository 39871Rjo: (330) Date:0730-78-89HZ [phone] (HP) [address] [place] [address]NZ: 08/18/2017 Secondary NOT GIVENUNK [place] Insurance:SELF PAY [facility] Number: Effective Repository Date:2017-08-18 08/18/2017 ANGY A Primary Insurance:UMR ANGY A [place] [id number] YOCASTA [id number] MCCOLLOUGHDOB: [facility] VINCE Number: [id number], [place] [id number] Repository 43386Sfu: (330) Date:7789-81-94ZI [phone] (HP) [address] [place] [phone]: 08/18/2017 Secondary NOT GIVENUNK [place] Insurance:SELF PAY [facility] Number: Effective Repository Date:2017-08-10 08/10/2017 ANGY A Primary Insurance:UMR ANGY A [place] [id number] YOCASTA [id number] MCCOLLOUGHDOB: [facility] VINCE Number: [id number], [place] [id number] Repository 51962Kae: (330) Date:4062-63-86JQ [phone] (HP) [address] [place] [id number]: 08/10/2017 Secondary NOT GIVENUNK [place] Insurance:SELF PAY [facility] Number: Effective Repository Date:2017-08-10 07/24/2017 ANGY A Primary Insurance:UMR ANGY A [place] [id number] YOCASTA [id number] MCCOLLOUGHDOB: [facility] VINCE Number: [id number], [place] [id number] Repository 78[address]Pmy: (330) Date:8955-06-48OF [phone] (HP) [address] [place] [phone]: 07/24/2017 Secondary NOT GIVENUNK [place] Insurance:SELF PAY [facility] Number: Effective Repository Date:2017-05-18 07/13/2017 ANGY A Primary Insurance:UMR ANGY A [place] [id number] YOCASTA [id number] MCCOLLOUGHDOB: [facility] Number: [id number], [place] [id number] Repository 624[address]Kqn: (330) Date:8641-39-58ZK [phone] () [address] [place] [phone]: 07/13/2017 Secondary NOT GIVENUNK [place] Insurance:SELF PAY [facility] Number: Effective Repository Date:2017-07-13 07/08/2017 ANGY A Primary Insurance:UMR ANGY A [place] [id number] YOCASTA [id number] MCCJUANOUGHDOB: [facility] Number: [id number], [place] [id number] Repository 01378Vir: (330) Date:0746-90-47DE [phone] () [address] [place] [phone]: 07/08/2017 Secondary NOT GIVENUNK [place] Insurance:SELF PAY [facility] Number: Effective Repository Date:2017-07-08 07/07/2017 ANGY A Primary Insurance:UMR ANGY A [place] [id number] YOCASTA [id number] EMREOUGHDOB: [facility] Number: [id number], [place] [id number] Repository 278[address]Jjs: (330) Date:9889-57-00XD [phone] () [address] [place] [phone]: 07/07/2017 Secondary NOT GIVENUNK [place] Insurance:SELF PAY [facility] Number: Effective Repository Date:2017-04-16 06/22/2017 ANGY A Primary Insurance:UMR ANGY A [place] [id number] YOCASTA [id number] MCCOLLOUGHDOB: [facility] Number: [id number], [place] [id number] Repository 32271Syt: (330) Date:1038-83-25LL [phone] (HP) [address] [place] [address]ZD: 06/22/2017 Secondary NOT GIVENUNK [place] Insurance:SELF PAY [facility] Number: Effective Repository Date:2017-06-22 06/22/2017 ANGY A Primary Insurance:UMR ANGY A [place] [id number] YOCASTA [id number] EMREOUGHDOB: [facility] VINCE Number: [id number], [place] [id number] Repository 38[address]Zbk: (330) Date:5543-02-77QU [phone] (HP) [address] [place] [address]XC: 06/22/2017 Secondary NOT GIVENUNK [place] Insurance:SELF PAY [facility] Number: Effective Repository Date:2017-05-25 06/10/2017 ANGY A Primary Insurance:UMR ANGY A [place] [id number] YOCASTA [id number] EMREOUGHDOB: [facility] VINCE Number: [id number], [place] [id number] Repository 836[address]Omz: (330) Date:2059-15-16SS [phone] (HP) [address] [place] [id number]: 06/10/2017 Secondary NOT GIVENUNK [place] Insurance:SELF PAY [facility] Number: Effective Repository Date:2017-06-10 05/25/2017 ANGY A Primary Insurance:UMR ANGY A [place] [id number] YOCASTA [id number] EMREOUGHDOB: [facility] VINCE Number: [id number], [place] [id number] Repository 89470Uxx: (330) Date:6181-49-34IT [phone] (HP) [address] [place] [phone]: 05/25/2017 Secondary NOT GIVENUNK [place] Insurance:SELF PAY [facility] Number: Effective Repository Date:2017-05-20 05/12/2017 ANGY Cowart Primary Insurance:[facility] ANGY Ochoa [id number] [facility] [id number] EMREOUGHDOB: [facility] Number: [id number], [place] [id number] Repository 707[address]Uwk: (330) Date:4895-09-08HO [phone] () [place] [address]LC: 05/12/2017 Secondary NOT GIVENUNK [place] Insurance:SELF PAY [facility] Number: Effective Repository Date:2017-04-28
== END ==
PROVIDERS: Family Provider Internal Medicine; PCP Internal Medicine; Referring Provider Internal Medicine Cardiovascular Disease; Visit Provider Internal Medicine Cardiovascular Disease
DX: R00.2 Palpitations (principal); R07.9 Chest pain, unspecified
CPT/HCPCS: 78452; 93017; 93306; A9500; Q9957; A4216; C8929

== ENCOUNTER → 2018-07-20 14:36 | Outpatient (CLI) | payer OTHER, SELFPAY ==
[2018-06-29 14:54] VITALS: BMI 34.5
[2018-07-20 15:32] LABS: Absolute Lymphocyte Count 2.01 X10^3/ul (0.83-4.51); Absolute Neutrophil Count 5.3 X10^3/uL (2.0-7.7); Basophil# 0.04 X10^3/uL; Basophil% 0.5 % (0-1); Eosinophil# 0.21 X10^3/uL; Eosinophils% 2.5 % (0-5); Hematocrit 46.1 % (40-54); Hemoglobin 14.8 g/dl (13.0-16.5); Lymphocyte # 2.01 X10^3/ul (4.0); Lymphocyte % 24.1 % (19-41); Mean Corp Hgb Conc 32.1 g/gl (32-36); Mean Corpuscular Volume 93.5 fL (80-94); Mean Platelet Vol. 9.8 fl (6.2-12.0); Monocyte% 8.4 % (0-10); Neutrophil # 5.33 X10^3/uL (2.7-7.7); Platelet Count 274 K/mm3 (150-450); RBC Distribution Width CV 13.3 % (11.6-14.6); Red Blood Count 4.93 M/mm3 (4.6-6.2); White Blood Count 8.3 K/mm3 (4.4-11.0)
[2018-07-20 15:35] LABS: POSITIVE COUNT NO; POSITIVE DIFFERENTIAL NO; POSITIVE MORPHOLOGY NO
[2018-07-20 17:22] LABS: AST(SGOT) 23 U/L (15-37); Alanine Aminotransfer ALT/SGPT 43 U/L (16-61); Albumin, Serum 3.9 g/dL (3.2-5.0); Alkaline Phosphatase 96 U/L (45-117); Bilirubin, Direct 0.07 mg/dL (0.00-0.30); Globulin 3.3 g/dL (2.2-4.2); Protein, Total 7.2 g/dL (6.4-8.2)
[2018-07-22 20:07] LABS: QNTFERON TB Mitogen Value > 10.00 IU/mL (.); QNTFERON TB Nil Value 0.01 IU/mL (.); QNTFERON TB1+ Ag Value 0.01 IU/mL (.); QNTFERON TB2+ Ag Value 0.01 IU/mL (.)
[2018-07-23 14:48] LABS: QNTIFERON TB Positive Criteria Negative (Negative)
== END ==
PROVIDERS: Family Provider Internal Medicine; PCP Internal Medicine; Referring Provider Dermatology; Visit Provider Dermatology
DX: Z79.899 Other long term (current) drug therapy (principal)
CPT/HCPCS: 36415; 80076; 85025; 86480

== ENCOUNTER → 2018-07-22 14:33 | Outpatient (CLI) | payer OTHER, SELFPAY ==
[2018-07-22 13:41] VITALS: BMI 35.6
[2018-07-22 15:40] LABS: BNP,B-Type NATRIURETIC PEPTIDE 13.4 pg/mL (0-100)
== END ==
PROVIDERS: Family Provider Internal Medicine; PCP Internal Medicine; Referring Provider Nurse Practitioner Family; Visit Provider Nurse Practitioner Family
DX: R06.00 Dyspnea, unspecified (principal)
CPT/HCPCS: 36415; 83880

== ENCOUNTER → 2018-08-06 07:37 | Outpatient (CLI) | payer OTHER, SELFPAY ==
[2018-07-22 13:41] VITALS: BMI 35.6
--- NOTE | 2018-08-06 11:38 | PFT ---
INTRODUCTION: The patient is a 58-year-old male that presents for pulmonary function studies secondary to a diagnosis of dyspnea. Respiratory therapy reports good patient effort. Bronchodilators were used during testing. INTERPRETATION: Forced expiration spirometry demonstrates no evidence of a large airways obstructive ventilatory defect. There was no significant response to aerosolized bronchodilators, based upon strict ATS criteria. Spirograms are of good quality and plateau normally. Body plethysmography was performed and reveals lung volumes to be within normal limits. Diffusing capacity by single breath CO is also within normal limits. IMPRESSION: Normal pulmonary function studies.
== END ==
PROVIDERS: Family Provider Internal Medicine; PCP Internal Medicine; Referring Provider Nurse Practitioner Family; Visit Provider Nurse Practitioner Family
DX: R06.09 Other forms of dyspnea (principal)
CPT/HCPCS: 94060; 94726; 94729

== ENCOUNTER 2018-09-13 05:42 | Day surgery (SDC) | payer OTHER, SELFPAY ==
[2018-06-29 14:54] VITALS: BMI 34.5
[2018-07-22 13:41] VITALS: BMI 35.6
[2018-09-13 06:05] VITALS: BP 109/80; PULSE 79; RESP 16; TEMP 37.2; O2SAT 98; BMI 34.4
--- NOTE | 2018-09-13 06:54 | HP.PCM_ITS ---
Problem List (1) Screen for colon cancer Status: Acute History of Present Illness Date of Admission: 09/13/18 The patient is a 58 year old M who presents for screening colonoscopy. He has had no problems with his bowel habits. 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 Anxiety F41.9 Arthritis M19.90 Celiac disease K90.0 Chronic back pain M54.9, G89.29 Hypothyroidism E03.9 Seasonal allergies J30.2 Thyroid disease E07.9 Vitamin D deficiency E55.9 Allergies No Known Allergies Allergy (Verified 09/10/18 13:22) Home Medications: Ambulatory Orders Medication Instructions Recorded escitalopram 10 mg tablet 10 mg PO DAILY #90 tab 03/17/18 Ixekizumab [Taltz Autoinjector] 80 mg SQ QMONTH 09/10/18 Levothyroxine Sodium [Synthroid] 200 mcg PO LUNCH 09/10/18 Multivitamin [Multiple Vitamins] 1 each PO DAILY 09/10/18 Surgical History: Surgical History (Last Reviewed 09/13/18 @ 06:53 by Zuhair Johnson MD) History of deviated nasal septum Z87.09 History of knee surgery Z98.890 torn cartilage in 1979, 81 History of left heart catheterization Onset Date: 07/20/09 Z98.890 History of radiofrequency ablation procedure for cardiac arrhythmia Onset Date: 08/01/09 Z98.890 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 Bethea History of total right knee replacement Z96.651 s/p mitro valve Surgical History: total knee arthroplasty - R 05-12-2017 Smoking Status: Former smoker Tobacco Use: Non-smoker - *Family History Maternal History Items: No pertinent history Review of Systems Constitutional: Denies: Chills, Fever, Weight Change Cardiovascular: Denies: Chest Pain, Chest Pressure, Chest Tightness, Palpitations Respiratory: Denies: Cough, Hemoptysis, Shortness of breath at rest, Shortness of breath upon exertion, Wheezing Gastrointestinal: Denies: Abdominal Pain, Constipation, Diarrhea, Hematemesis, Nausea, Melena, Vomiting VTE Information - Inpt Only VTE Present on Admission: No VTE Mechan Device Prophylaxis: None VTE Pharm Prophylaxis ordered?: No Reason prophylaxis not ordered:: Treatment Not Indicated Patient Problems: Active and Suspected Problems (Last Reviewed 06/29/18 @ 14:54 by Mallory Tariq) Screen for colon cancer (Acute) - Physical Exam General: Alert, Oriented x3 Lungs: Clear to auscultation Cardiovascular: Regular rate, Regular Rhythm, No murmurs Abdomen: Bowel Sounds Present, Soft, Non Tender, Non-Distended Vital Signs Temp Pulse Resp BP Pulse Ox 98.9 F 79 16 109/80 98 09/13/18 06:05 09/13/18 06:05 09/13/18 06:05 09/13/18 06:05 09/13/18 06:05 Oxygen Delivery Method Room Air Weight: 254 lb 3.2 oz Body Mass Index (BMI) 34.4 Assessment/Plan All Active Problems (Last Reviewed 06/29/18 @ 14:54 by Mallory Tariq) Screen for colon cancer (Acute) Intermittent palpitations (Acute) Dyspnea (Acute) Chest pain (Acute) Atherosclerosis of coronary artery of [place] heart with angina pectoris (Acute) Plan is to perform a colonoscopy. Risk and benefits to include bleeding possible injury to colon which may need for further surgery have been reviewed with the patient the patient agrees to proceed.
[2018-09-13 07:11] VITALS: BP 108/66; BP 109/80; PULSE 75; RESP 16; TEMP 36.6; O2SAT 95
[2018-09-13 07:15] VITALS: BP 109/80; BP 114/71; PULSE 70; RESP 16; O2SAT 94
--- NOTE | 2018-09-13 07:18 | OP.ENDO_ITS ---
09/13/2018 Neo Tarango MD [address] [place] [address] [place] [address] Re : Colonoscopy procedure for Darwin Minaough Dear Dr. Tarango This procedure was performed on Thursday, September 13, 2018. My impressions and recommendations are as follows: Impressions : - Non-bleeding internal hemorrhoids. - The examination was otherwise normal. - No specimens collected. Recommendations : - Discharge patient to home. - Resume previous diet. - Continue present medications. - Repeat colonoscopy in 10 years for screening purposes. - Return to primary care physician PRN. My findings are described in the full procedure note, which is enclosed. If I can be of further assistance, please feel free to contact me at Doctor phone number(s): , Fax: [phone], Work: . Sincerely, MD Zuhair Snow MD 09/13/2018 7:17:56 AM This report has been signed electronically.
[2018-09-13 07:20] VITALS: BP 107/77; BP 109/80; PULSE 70; RESP 16; O2SAT 93
[2018-09-13 07:25] VITALS: BP 109/80; BP 123/80; PULSE 71; RESP 18; TEMP 36.6; O2SAT 97
[2018-09-13 07:44] VITALS: BP 109/80
== END 2018-09-13 08:00 | disposition home or self-care (01) ==
LOC: EN 05:43 → AC 05:44
PROVIDERS: Family Provider Internal Medicine; PCP Internal Medicine; Referring Provider Internal Medicine; Visit Provider Surgery
PROC: 0DJD8ZZ Inspection of Lower Intestinal Tract, Via Natural or Artificial Opening Endoscopic (ICD-10-PCS; CPT 45378; principal; 2018-09-13 06:55)
DX: Z12.11 Encounter for screening for malignant neoplasm of colon (principal); K64.8 Other hemorrhoids; I25.10 Atherosclerotic heart disease of native coronary artery without angina pectoris; I47.1 Supraventricular tachycardia; I49.3 Ventricular premature depolarization; E03.9 Hypothyroidism, unspecified; F32.9 Major depressive disorder, single episode, unspecified; F41.9 Anxiety disorder, unspecified; Z87.891 Personal history of nicotine dependence
CPT/HCPCS: 45378; J7120

== ENCOUNTER → 2019-02-15 16:42 | Outpatient (CLI) | payer OTHER, SELFPAY ==
[2019-02-15 12:47] VITALS: BMI 34.9
--- NOTE | 2019-02-15 16:44 | RAD_ITS ---
STUDY: X-RAY CHEST REASON FOR EXAM: Male, 58 years old. Shortness of breath, chest pain TECHNIQUE: PA and lateral views of the chest. COMPARISON: 05/15/2017 FINDINGS: 1.5 cm nodular opacity in the mid right lung worrisome for pulmonary nodule and correlation with CT the chest with contrast is recommended. There is no demonstrated pleural abnormality. Normal size heart. Normal mediastinum and roger. Normal visualized pulmonary arteries. Normal visualized aortic arch and descending thoracic aorta. Normal visualized thoracic spine. Normal visualized ribs, clavicles, and shoulders. There is no demonstrated abnormality of the visualized soft tissue structures of the upper abdomen. RAD/Chest PA and Lateral IMPRESSION: Suspect 1.5 cm right lung nodule correlation with CT the chest with contrast is recommended. Electronically Signed: Prashant Espitia MD at 10:32 EDT Tel , Service support ,
[2019-02-15 17:13] LABS: Absolute Lymphocyte Count 2.73 X10^3/uL (0.83-4.51); Absolute Neutrophil Count 5.7 X10^3/uL (2.0-7.7); Basophil# 0.06 X10^3/uL; Basophil% 0.6 % (0-1); Eosinophil# 0.19 X10^3/uL; Eosinophils% 1.9 % (0-5); Hematocrit 44.7 % (40-54); Hemoglobin 14.5 g/dL (13.0-16.5); Lymphocyte # 2.73 X10^3/ul (4.0); Mean Corp Hgb Conc 32.4 g/dL (32-36); Mean Corpuscular Hgb 29.8 pg (27.0-32.0); Mean Corpuscular Volume 91.8 fL (80-94); Mean Platelet Vol. 9.2 fl (6.2-12.0); Monocyte# 0.98 X10^3/uL; NRBC Flagged by Analyzer 0 % (0-5); Neutrophil # 5.71 X10^3/uL (2.7-7.7); Neutrophil % 58.6 % (47-70); Platelet Count 294 K/mm3 (150-450); RBC Distribution Width CV 13.1 % (11.6-14.6); Red Blood Count 4.87 M/mm3 (4.6-6.2); White Blood Count 9.8 K/mm3 (4.4-11.0)
[2019-02-15 17:41] LABS: Anion Gap 5 (5-15); BUN 17 mg/dL (7-18); BUN/Creat Ratio 19.7 RATIO (10-20); Calcium,Total 8.9 mg/dL (8.5-10.1); Chloride 108 mmol/L (98-107); Creatinine, Serum 0.86 mg/dL (0.70-1.30); EST Glomerular Filtration Rate 97 mL/min (>60); Est Glom Filt Rate - Afr Amer 117 mL/min (>60); Glucose 84 mg/dL (74-106); Potassium 4.3 mmol/L (3.5-5.1); Sodium Level 141 mmol/L (136-145)
== END ==
PROVIDERS: Family Provider Internal Medicine; PCP Internal Medicine; Referring Provider Internal Medicine Cardiovascular Disease; Visit Provider Internal Medicine Cardiovascular Disease
DX: R07.9 Chest pain, unspecified (principal)
CPT/HCPCS: 36415; 71046; 80048; 85025

== ENCOUNTER 2019-02-18 08:34 | Day surgery (SDC) | payer OTHER, SELFPAY ==
[2019-02-15 12:47] VITALS: BMI 34.9
[2019-02-17 09:12] VITALS: BMI 34.9
--- NOTE | 2019-02-18 10:17 | CT_ITS ---
STUDY: CT CHEST WITH CONTRAST REASON FOR EXAM: Male, 58 years old. History of right mid lung nodule. RADIATION DOSAGE (If Supplied By Facility): CTDIvol = ( 16.41 ) mGy, DLP = ( 747.77 ) mGycm TECHNIQUE: Transaxial imaging was performed following intravenous administration of IV Isovue 300 75ML. Multiplanar coronal and sagittal images were reformatted. Individualized dose optimization techniques were used for this CT. COMPARISON: Comparison is made with prior chest radiograph dated February 15, 2019. FINDINGS: There are multiple small bilateral axillary lymph nodes. The radiographic abnormality corresponds to a 1.8 cm x 1.5 cm spiculated irregular nodule in the superior segment of the right lower lobe. There is also evidence of a mild degree of atelectasis and/or scarring at the lung bases. There is no demonstrated pleural abnormality. Normal heart and pericardium. There is an inhomogeneously enlarged lymph node in the right paratracheal region extending into the right suprahilar region. This measures 4.5 cm x 2.8 cm x 3.5 cm. There is also evidence of a 1.4 cm right hilar lymph node. Multiple smaller mediastinal lymph nodes are seen. Normal enhanced pulmonary arteries. Normal aorta arch and descending thoracic aorta. There are multi-level degenerative changes of the thoracic spine. There is no demonstrated abnormality of the visualized upper abdomen. CT/Chest WITH Contrast IMPRESSION: There is evidence of a 1.8 cm x 1.5 cm spiculated irregular nodule in the superior segment of the right lower lobe. Mediastinal and right hilar lymphadenopathy as described. Electronically Signed: Hima Nath, at 13:20 EDT , Service support ,
--- NOTE | 2019-02-18 10:20 | CL.D_ITS ---
Patient Name: ANGY CARSON Study Date: 02/18/2019 Performing: Robert Graham MD Ht: 72.04 inches 183 cm : 1960 Wt: 257.94 lbs 117 kg Age: 58 Gender: male BSA: 2.37 PROCEDURE(S) PERFORMED AL18-XQS/COR CLINICAL PROFILE AND INDICATIONS Indications: Suspected CAD Heart Failure: None Stress/Imaging Date: 04/15/18 CAD Presentations: Stable angina. CONCLUSIONS Non obstructive coronary arteries RECOMMENDATIONS Medical therapy CT chest to evaluate lung nodule DESCRIPTION OF PROCEDURE The patient arrived to the procedure lab. The risks and benefits of the procedure as well as a full d escription of our services here and current unavailability of surgical backup were fully explained to the patient and/or their significant other prior to the catheterization. The Timeout was completed, verifying the correct patient and procedure. The patient's procedural site was prepped and draped in the usual fashion. Local anesthetic was given subcutaneously to right radial region with Lidocaine 2% . Using a modified Seldinger technique, arterial access was obtained via the right radial artery, a 6 Fr sheath was inserted. Left Coronary Artery selective angiography was performed in multiple views u sing a 5 Fr. 4.0 [place] catheter. Right Coronary Artery selective angiography was then performed in mu ltiple views using a 5 Fr. 4.0 [place] catheter.The arterial sheath was pulled and a TR Band was applie d for hemostasis. The arterial sheath was pulled and a TR Band was applied for hemostasis. 9cc Air CORONARY ANGIOGRAPHY DOMINANCE: Right Dominant LEFT HEART ASSESSMENT Left Ventricular Ejection Fraction: by Echo 55 % Normal LV wall motion Normal Left Ventricular systolic function LEFT MAIN: Angiographically normal LEFT ANTERIOR DESCENDING ARTERY: No significant disease noted CIRCUMFLEX ARTERY: No significant disease noted RIGHT CORONARY ARTERY: Mild luminal irregularities less than 30% COMPLICATIONS No Complications PROCEDURE MEDICATIONS Fentanyl 50 mcg IV Versed 1 mg IV Oxygen: 2 L/min via nasal cannula Heparin diluted in 23cc Heparinized saline. Patient given 10cc IA of this solution. 02/18/2019 10:06 :16 Verapamil 2.5mg, Ntg 100mcgs, 2000 units of Heparin diluted in 23cc Heparinized saline. Patient give n 10cc IA of this solution. 02/18/2019 10:06:16 SUMMARY OF HEMODYNAMIC DATA Time AIR REST ECG 09:12:48 AO 102/80 (91) SA 10:08:31 Signed By Robert Graham MD On 02/18/2019 10:20:16 AM Robert Graham MD
== END 2019-02-18 11:55 | disposition home or self-care (01) ==
LOC: CLSP 08:35
PROVIDERS: Family Provider Internal Medicine; PCP Internal Medicine; Referring Provider Internal Medicine Cardiovascular Disease; Visit Provider Internal Medicine Cardiovascular Disease
DX: I25.119 Atherosclerotic heart disease of native coronary artery with unspecified angina pectoris (principal); I47.1 Supraventricular tachycardia; R07.89 Other chest pain; F41.9 Anxiety disorder, unspecified; M19.90 Unspecified osteoarthritis, unspecified site; E03.9 Hypothyroidism, unspecified; E66.9 Obesity, unspecified; Z68.34 Body mass index [BMI] 34.0-34.9, adult; Z87.891 Personal history of nicotine dependence; Z79.899 Other long term (current) drug therapy
CPT/HCPCS: 71260; 93454; 99152; 99153; J7040; Q9967; C1769; C1894

== ENCOUNTER → 2019-02-28 10:30 | Outpatient (CLI) | payer OTHER, SELFPAY ==
[2019-02-17 09:12] VITALS: BMI 34.9
[2019-02-28 12:27] LABS: ALB/GLOB Ratio 0.9 RATIO (0.9-2.4); AST(SGOT) 24 U/L (15-37); Alanine Aminotransfer ALT/SGPT 45 U/L (16-61); Albumin, Serum 3.7 g/dL (3.2-5.0); Alkaline Phosphatase 104 U/L (45-117); Anion Gap 7 (5-15); BUN 15 mg/dL (7-18); BUN/Creat Ratio 17.7 RATIO (10-20); Calcium,Total 8.4 mg/dL (8.5-10.1); Chloride 106 mmol/L (98-107); Cholesterol 163 mg/dL (200); Creatinine, Serum 0.85 mg/dL (0.70-1.30); EST Glomerular Filtration Rate 99 mL/min (>60); Est Glom Filt Rate - Afr Amer 119 mL/min (>60); Globulin 3.9 g/dL (2.2-4.2); Glucose 94 mg/dL (74-106); High Density Lipoprotein 46 mg/dL; PSA,Total - Annual Screen 0.86 ng/mL (0.00-4.00); Potassium 4.4 mmol/L (3.5-5.1); Protein, Total 7.6 g/dL (6.4-8.2); Sodium Level 142 mmol/L (136-145); Triglycerides 123 mg/dL; Very Low Density Lipoprotein 25 mg/dL (5-40)
== END ==
PROVIDERS: Family Provider Internal Medicine; PCP Internal Medicine; Visit Provider Internal Medicine
DX: Z00.00 Encounter for general adult medical examination without abnormal findings (principal); Z12.5 Encounter for screening for malignant neoplasm of prostate
CPT/HCPCS: 36415; 80053; 80061; 84153; G0103

== ENCOUNTER → 2019-03-16 11:15 | Outpatient (CLI) | payer OTHER, SELFPAY ==
[2019-03-16 06:28] VITALS: BMI 34.2
[2019-03-16 11:57] LABS: Absolute Lymphocyte Count 2.16 X10^3/uL (0.83-4.51); Absolute Neutrophil Count 7.4 X10^3/uL (2.0-7.7); Basophil# 0.07 X10^3/uL; Basophil% 0.6 % (0-1); Eosinophil# 0.16 X10^3/uL; Eosinophils% 1.5 % (0-5); Hematocrit 45.6 % (40-54); Hemoglobin 14.9 g/dL (13.0-16.5); Lymphocyte # 2.16 X10^3/ul (4.0); Lymphocyte % 20.1 % (19-41); Mean Corp Hgb Conc 32.7 g/dL (32-36); Mean Corpuscular Hgb 29.7 pg (27.0-32.0); Mean Corpuscular Volume 90.8 fL (80-94); Mean Platelet Vol. 9.4 fl (6.2-12.0); Monocyte# 0.81 X10^3/uL; Monocyte% 7.5 % (0-10); NRBC Flagged by Analyzer 0 % (0-5); Neutrophil # 7.44 X10^3/uL (2.7-7.7); Neutrophil % 69.1 % (47-70); Platelet Count 312 K/mm3 (150-450); RBC Distribution Width CV 12.7 % (11.6-14.6); RBC Distribution Width SD 41.8 fl (35.1-43.9); Red Blood Count 5.02 M/mm3 (4.6-6.2); White Blood Count 10.8 K/mm3 (4.4-11.0)
[2019-03-16 12:10] LABS: Partial Thromboplast Time 28.6 Seconds (24.1-36.2); Prothrombin Time (Protime)PT. 12.8 SECONDS (11.7-14.9)
== END ==
PROVIDERS: Family Provider Internal Medicine; PCP Internal Medicine; Referring Provider Internal Medicine Critical Care Medicine; Visit Provider Internal Medicine Critical Care Medicine
DX: J98.59 Other diseases of mediastinum, not elsewhere classified (principal)
CPT/HCPCS: 36415; 85025; 85610; 85730

== ENCOUNTER 2019-03-18 12:19 | Day surgery (SDC) | payer OTHER, SELFPAY ==
[2019-03-16 06:28] VITALS: BMI 34.2
--- NOTE | 2019-03-18 | FLU_PTH ---
PATIENT: ANGY CARSON LOC: EN U#:[id number] AGE/SX: 59/M ROOM: RE03/18/[address]: Dr. Surjit Xie MD : 1960 BED: DIS: 03/18/2019 SPEC #: [id number] RECD: 03/18/19 15:06 STATUS: VALORIE SOLIS #: [id number] LIVIER: 03/18/19 00:[address]: Surjit Xie DEPT: CYTOLOGY RECD BY: Omid Devine ENTERED: 03/18/19 15:07 SP TYPE: Fluid OTHR DR: Dr. Neo Tarango MD Tissues: A - Lung, NOS B - Lung, NOS C - Lung, NOS D - Lung, NOS E - Lung, NOS F - Lung, NOS G - Lung, NOS H - Lung, NOS I - Lung, NOS J - Lung, NOS Procedures: PAS Fungus (control) Special Stain Group II Special Stain Group I Mucicarmine Stain (control) Surgery Specimen Level IV AFB Stain (control) Cytospin Fluid Cytology Other HEADER OPERATION: Endobronchial ultrasound PRE-OP DIAGNOSIS: Mediastinal lymphadenopathy TISSUE SUBMITTED: A-G - EBUS FNA site 4, H - EBUS FNA fluid, site 4, I - BAL, RML fluid, J - Bronchial washing fluid DIAGNOSIS CYTOLOGY A. EBUS FNA, aspiration #1, site?4 (smears): Necrotic material. No viable tissue is identified. B. EBUS FNA, aspiration #2, site?4 (smears): Mostly blood, rare respiratory epithelial cells. Negative for malignant cells. Nondiagnostic. C. EBUS FNA, aspiration #3, site?4 (smears): Respiratory epithelial cells and macrophages. Negative for malignant cells. D. EBUS FNA, aspiration #4, site?4 (smears): Respiratory epithelial cells, macrophages and a few lymphocytes are noted. Negative for malignant cells. E. EBUS FNA, aspiration #5, site?4 (smears): Respiratory epithelial cells, macrophages and a few lymphocytes. Negative for malignant cells. F. EBUS FNA, aspiration #6, site?4 (smears): Respiratory epithelial cells, macrophages and a few lymphocytes. Negative for malignant cells. G. EBUS FNA, aspiration #7, site?4 (smears): Respiratory epithelial cells, macrophages and a few lymphocytes. Negative for malignant cells. H. EBUS FNA, aspiration, site?4 fluid (cytospin and cell block): Negative for malignant cells. Special stains for acid fast bacilli and fungi are negative for organisms; matched controls are appropriate. See cytology study and comment. I. BAL, RML fluid (cytospin and cell block): Negative for malignant cells. See cytology study and comment. J. Bronchial washing fluid (cytospin and cell block): Negative for malignant cells. Special stains for acid fast bacilli and fungi are negative for organisms; matched controls are appropriate. See cytology study and comment. ELIAN:bonnie 03/22/19 COMMENT The specimen is evaluated at the time of EBUS FNA by Dr. Holt (in OR at 1:50 p.m.) Immediate Evaluation: A. EBUS FNA, aspiration #1, site?4: Necrotic material. Reported at 2:16 p.m. B. EBUS FNA, aspiration #2, site?4: Mostly blood, rare respiratory epithelial cells. Nondiagnostic. Negative for malignant cells. Reported at 2:20 p.m. C. EBUS FNA, aspiration #3, site?4: Respiratory epithelial cells and macrophages. Negative for malignant cells. Reported at 2:25 p.m. D. EBUS FNA, aspiration #4, site?4: Respiratory epithelial cells and macrophages. Negative for malignant cells. E. EBUS FNA, aspiration #5, site?4: Respiratory epithelial cells, macrophages and a few lymphocytes. Negative for malignant cells. Reported at 2:36 p.m. F. EBUS FNA, aspiration #6, site?4: Respiratory epithelial cells and macrophages. Negative for malignant cells. G. EBUS FNA, aspiration #7, site?4: Respiratory epithelial cells and macrophages. Negative for malignant cells. Correlation with clinical, radiologic findings and appropriate follow up are necessary. Case has been reviewed in consultation with Dr. Harkins who concurs with the above diagnosis. IDC:AM CYTOLOGY STUDY Slides are reviewed. H. The specimen consists of scant necrotic material, a few lymphocytes, respiratory epithelial cells and macrophages. Mucin stain with matched control is also used in the evaluation of the specimen. I. The specimen consists of respiratory epithelial cells, inflammatory cells and macrophages. J. The specimen consists of respiratory epithelial cells, inflammatory cells, macrophages and a few lymphocytes. CYTOLOGY GROSS A - Received labeled with the patient's name and and designated EBUS FNA, aspiration #1, site?4. The specimen consists of two smears submitted for immediate cytologic evaluation (wet read). B - Received labeled with the patient's name and and designated EBUS FNA, aspiration #2, site?4. The specimen consists of two smears submitted for immediate cytologic evaluation (wet read). C - Received labeled with the patient's name and and designated EBUS FNA, aspiration #3, site?4. The specimen consists of two smears submitted for immediate cytologic evaluation (wet read). D - Received labeled with the patient's name and and designated EBUS FNA, aspiration #4, site?4. The specimen consists of two smears submitted for immediate cytologic evaluation (wet read). E - Received labeled with the patient's name and and designated EBUS FNA, aspiration #5, site?4. The specimen consists of two smears submitted for immediate cytologic evaluation (wet read). F - Received labeled with the patient's name and and designated EBUS FNA, aspiration #6, site?4. The specimen consists of two smears submitted for immediate cytologic evaluation (wet read). G - Received labeled with the patient's name and and designated EBUS FNA, aspiration #7, site?4. The specimen consists of two smears submitted for immediate cytologic evaluation (wet read). H - Received is 15 ml of bloody fluid labeled with the patient's name and and designated transbronchial needle aspirate, submitted for cell block and cytospin preparation. I - Received is 5 ml of hazy, colorless fluid labeled with the patient's name and and designated BAL, RML, submitted for cell block and cytospin preparation. J - Received is 15 ml of turbid red fluid labeled with the patient's name and and designated bronchial washing fluid, submitted for cell block and cytospin preparation. / SJ:rg 03/18/19 TC:5 CPT: 68396 x6, 72200 x4, 92839, 35764 x3, 96679 x3, 47399, 01401
[2019-03-18 12:51] VITALS: BP 121/84; PULSE 74; RESP 16; TEMP 36.6; O2SAT 95; BMI 33.8
[2019-03-18] MEDS: Lactated Ringers 1,000 ML 100 ML IV (13:14)
[2019-03-18 14:58] VITALS: BP 121/84; BP 123/78; PULSE 78; RESP 18; TEMP 36.3; O2SAT 93
--- NOTE | 2019-03-18 15:03 | PCM.HP.STD ---
History of Present Illness Date of Admission: 03/18/19 No changes noted from office visit dated 03/16. Physical exam completed prior to taking patient back to the OR. All questions were answered. Patient's was at the bedside and questions were answered. Assessment & Plan Problems 1. Mediastinal mass J98.59 2. Right upper lobe pulmonary nodule R91.1 Plan Patient with a finding of a large mediastinal mass and associated right upper lobe spiculated nodule. Patient does not have a significant history consistent with concern for lung cancer, but given the size of the findings, would proceed with an endobronchial ultrasound for evaluation. Patient is not on immunotherapy secondary to psoriatic arthritis that can lead to thrombocytopenia. Will obtain a CBC, PT/INR and PTT. After review with risks, benefits alternatives, patient has agreed with proceeding with the procedure. Obtain coagulation studies. Endobronchial ultrasound on 03/18/2019 at 1 PM. Orders Orders: Partial Thromboplast Time Today J98.59 Prothrombin Time w/INR Today J98.59 CBC W/Diff, Automated Today J98.59 Bronchoscopy 03/18/19 J98.59 HPI lung nodule: Chief Complaint: Abnormal CT scan Details: Patient is a 59-year-old male, currently under the care of Dr. Tarango, who presents for evaluation secondary to an abnormal CT scan. Patient states that he was having some cardiac issues and this led to a CT scan. CT scan was notable for a spiculated lung nodule and a mediastinal mass, so a consult to pulmonary was placed. Patient states that he does well from a respiratory standpoint. Patient has noted more fatigue over the last year, but otherwise is relatively unchanged. Patient states he has had a cough that is nonproductive and typically initiated following laughing. Patient states that he will start to laugh and then progressed into a progressive nonproductive cough. Patient denies any syncope associated with the proximal systems. Patient has not had any significant weight loss, fever, chills, nausea or vomiting. Patient does have a history of psoriatic arthritis and was on immunotherapy in the past. TB work-up at that time was negative. 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 Patient did have a minimal smoking history in the past, but is never been told that he has COPD required any inhalers. Patient has had an ablation done previously secondary to SVT. Patient was not aware of any complications. Patient has not had any chest trauma. Patient denies any lower extremity swelling. Patient is on Synthroid secondary to hypothyroidism. Testing reviewed with the patient Complete PFT (08/06/2018): Normal PFT (FVC 87%, FEV1 91%, TLC 111%, DLCO 99%) CT chest (02/18/2019): 1.8 x 1.5 cm spiculated irregular nodule in the superior aspect of the right lower lobe. 4.5 x 2.8 x 3.5 cm lymph node noted in the right suprahilar region Documentation reviewed 6 page office note from Dr. Graham was personally reviewed prior to the office visit. Patient has had issues with supraventricular tachycardia and mild stenosis noted on heart catheterization. Patient did undergo successful catheter ablation Intake Vital Signs 03/16/19 Height 6 ft 03/16/19 Weight: 114.305 kg 03/16/19 Body Mass Index (BMI) 34.2 03/16/19 Blood Pressure 110/75 03/16/19 Blood Pressure Location Lt brachial 03/16/19 Blood Pressure Position Sitting 03/16/19 Respiratory Rate 18 03/16/19 Pulse Rate 65 03/16/19 Pulse Source Monitor 03/16/19 Temperature 36.4 C L 03/16/19 Temperature Source Oral 03/16/19 Pulse Ox 96 Intake Visit Reasons: lung nodule Accompanied by: Self Allergies No Known Allergies Allergy (Verified 03/16/19 10:36) Medications Ixekizumab [Taltz Autoinjector] 80 mg SQ QMONTH 09/10/18 [History Confirmed 03/16/19] Levothyroxine Sodium [Synthroid] 200 mcg PO LUNCH 09/10/18 [History Confirmed 03/16/19] Multivitamin [Multiple Vitamins] 1 ea PO DAILY 09/10/18 [History Confirmed 03/16/19] escitalopram 10 mg tablet 10 mg PO DAILY #90 tab 10/26/18 [Rx Confirmed 03/16/19] [facility] Medical History (Updated 03/16/19 @ 11:16 by Surjit Xie MD) Arthritis (Chronic) Chronic back pain (Chronic) Hypothyroidism (Chronic) Anxiety (Chronic) Seasonal allergies (Chronic) Vitamin D deficiency (Chronic) Celiac disease (Chronic) Obesity (Chronic) Paroxysmal supraventricular tachycardia (Chronic) Atherosclerosis of coronary artery of [place] heart with angina pectoris (Chronic) Intermittent palpitations (Chronic) Surgical History (Updated 03/16/19 @ 10:37 by Gina Marie) History of total right knee replacement (Resolved) History of deviated nasal septum (Resolved) History of knee surgery (Resolved) History of radiofrequency ablation procedure for cardiac arrhythmia (Resolved 08/01/09) History of left heart catheterization (Resolved 02/18/19) s/p mitro valve (Inactive) Social History (Updated 03/16/19 @ 12:46 by Surjit Xie MD) Smoking Status: Former smoker Tobacco: How many years used: 7 how long ago did patient quit smokin, 1ppd second hand exposure: Yes alcohol intake: current alcohol intake frequency: a few times a month Alcohol type: beer substance use type: does not use caffeine: Yes Type: coffee Number of servings: 2 what type of physical activity do you participate in: weight training frequency: 3-4 times per week Review of Systems Const CONSTITUTIONAL: No anorexia, No body ache, No chills, No daytime sleepiness, No fever(s), No night sweats, No stops breathing during sleep, No weight loss, No weight gain, No sleeping in chair, No orthopnea, No fatigue, No headache(s), No frequent colds, No seasonal allergies, No other EETM Ear Nose Throat Mouth: No hoarseness, No Dry mouth in morning, No change in vision, No itchy eyes, No eye pain, No Swallowing Difficulty, No ear pain, No nose bleed, No headache(s), No mouth pain, No nasal congestion, No nasal discharge, No sinus pain, No sinus pressure, No sore throat, No other Cardio Cadriovascular: No chest pain, No chest pain at rest, No chest pain with activity, No irregular heart rhythm, No shortness of breath when lying down, No palpitations, No other Resp Respiratory: Yes as per HPI, No shortness of breath at rest, No pain with cough, No chest congestion, Yes cough, No chest tightness, No pain on inspiration, No Inhalers, No Increase use of Rescue Inhalers, No snoring, No apnea, Yes other (LESLIE) Gastro Gastrointestional: Negative bloody stools, change in appetite, difficulty swallowing, reflux, hematemesis, melena stool, loose stool, constipation or other Genitourinary: Negative blood in urine, nocturia, pain with urination or other Musc Musculoskeletal: Negative body pain, back pain, neck pain or other Skin/Breast Skin/Breast: No dry skin, No itching, No unusual bruising, No breast lump, No other Neuro Neurological: Negative restless legs, confusion, weakness or other Psych Psychocological: Negative abnormal sleep pattern, anxiety, thoughts of hurting self/others, hopelessness or other Lymph Lymphatic: No easy bleeding, No easy bruising, No other Past Medical History Past Medical History (Chronic Problems): Chronic Problems (Last Reviewed 03/18/19 @ 15:05 by Surijt Xie MD) Arthritis (Chronic) Chronic back pain (Chronic) Hypothyroidism (Chronic) Anxiety (Chronic) Seasonal allergies (Chronic) Vitamin D deficiency (Chronic) Celiac disease (Chronic) Obesity (Chronic) Paroxysmal supraventricular tachycardia (Chronic) 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) Myocardial bridging Mid-LAD, non obstructive coronaries 07/20/2009 Intermittent palpitations (Chronic) Medical History: Medical History (Last Reviewed 03/18/19 @ 15:05 by Surjit Xie MD) Arthritis (Chronic) M19.90 Chronic back pain (Chronic) M54.9, G89.29 Hypothyroidism (Chronic) E03.9 Anxiety (Chronic) F41.9 Seasonal allergies (Chronic) J30.2 Vitamin D deficiency (Chronic) E55.9 Celiac disease (Chronic) K90.0 Obesity (Chronic) E66.9 Paroxysmal supraventricular tachycardia (Chronic) I47.1 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) I25.119 Myocardial bridging Mid-LAD, non obstructive coronaries 07/20/2009 Intermittent palpitations (Chronic) R00.2 Allergies No Known Allergies Allergy (Verified 03/18/19 12:35) Home Medications: Ambulatory Orders Medication Instructions Recorded Levothyroxine Sodium [Synthroid] 200 mcg PO LUNCH 09/10/18 escitalopram 10 mg tablet 10 mg PO DAILY #90 tab 10/26/18 Surgical History: Surgical History (Last Reviewed 03/18/19 @ 15:05 by Surjit Xie MD) History of total right knee replacement (Resolved) Z96.651 History of deviated nasal septum (Resolved) Z87.09 History of knee surgery (Resolved) Z98.890 torn cartilage in 1979, 82 History of radiofrequency ablation procedure for cardiac arrhythmia (Resolved) Onset Date: 08/01/09 Z98.890 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 Bethea History of left heart catheterization (Resolved) Onset Date: 02/18/19 Z98.890 06/2009, 01/2019 s/p mitro valve Surgical History: total knee arthroplasty - R 05-12-2017 Psychiatric History: No pertinent psych hx Lives: Spouse/ Significant Other Smoking Status: Former smoker Tobacco Use: Cigarettes Alcohol: Occasional Drugs: None - *Family History Maternal History Items: No pertinent history Review of Systems Constitutional: Denies: Chills, Fever, Weight Change HEENT: Denies: Head Aches, Sinus Congestion, Sinus Drainage Cardiovascular: Denies: Chest Pain, Palpitations Respiratory: Denies: Cough, Shortness of breath at rest, Sputum production Gastrointestinal: Denies: Abdominal Pain, Nausea, Vomiting Genitourinary: Denies: Dysuria Musculoskeletal: Denies: Joint Pain, Joint Tenderness Skin: Denies: Rash, Wounds Neurological: Denies: Numbness, Tingling, Focal weakness Psychiatric: Denies: Anxiety, Depression, Homicidal Ideations, Suicidal Ideations Hematologic/ Lymphatic: Denies: Easy Bruising, Easy Bleeding VTE Information - Inpt Only VTE Present on Admission: No VTE Mechan Device Prophylaxis: None VTE Pharm Prophylaxis ordered?: No Reason prophylaxis not ordered:: Treatment Not Indicated - Physical Exam Vitals/I&O's: Vital Signs Temp Pulse Resp BP Pulse Ox 36.3 C L 78 18 123/78 H 93 03/18/19 14:58 03/18/19 14:58 03/18/19 14:58 03/18/19 14:58 03/18/19 14:58 Oxygen Flow Rate (L/min) 3 Oxygen Delivery Method Nasal Cannula Weight: 113.2 kg Body Mass Index (BMI) 33.8 Current Medications Lactated Ringer's () 1,000 mls @ 100 mls/hr IV .Q10H JUAN Last Admin: 03/18/19 13:14 Dose: 100 mls/hr Documented by: Assessment/Plan All Active Problems (Last Reviewed 03/18/19 @ 15:05 by Surjit Xie MD) Mediastinal mass (Acute) Right upper lobe pulmonary nodule (Acute) History of total right knee replacement (Resolved) History of deviated nasal septum (Resolved) History of knee surgery (Resolved) History of radiofrequency ablation procedure for cardiac arrhythmia (Resolved 08/01/09) History of left heart catheterization (Resolved 02/18/19) Mediastinal lymphadenopathy (Acute) Lung nodule (Acute) Abnormal CT scan of lung (Acute) Chest pain (Resolved) Dyspnea (Resolved) Screen for colon cancer (Resolved)
--- NOTE | 2019-03-18 15:14 | OP.BRONCH_ITS ---
Patient Name: Darwin Weldon Procedure Date: 03/18/2019 1:27 PM Date of : 1960 Age: 59 Procedure: Bronchoscopy Indications: Suspicious trachea lesion, Hilar lymphadenopathy of the right side Providers: Surjit Xie MD Referring MD: Neo Tarango MD Medicines: Sedation Required Anesthesia Staff Assistance Complications: No immediate complications. Estimated blood loss: Minimal Procedure: Pre-Anesthesia Assessment: - A History and Physical has been performed. The patient's medications, allergies and sensitivities have been reviewed. - The risks and benefits of the procedure and the sedation options and risks were discussed with the patient. All questions were answered and informed consent was obtained. - Patient identification and proposed procedure were verified prior to the procedure by the physician, the nurse and the anesthesiologist. The procedure was verified in the procedure room. - Pre-procedure physical examination revealed no contraindications to sedation. - Mental Status Examination: normal. Airway Examination: normal oropharyngeal airway. Respiratory Examination: clear to auscultation. CV Examination: normal and RRR, no murmurs, no S3 or S4. - After reviewing the risks and benefits, the patient was deemed in satisfactory condition to undergo the procedure. After I obtained informed consent, the scope was passed under direct vision. Throughout the procedure, the patient's blood pressure, pulse, and oxygen saturations were monitored continuously. The ultrasound bronchoscope was introduced through the mouth, via laryngeal mask airway and advanced to the tracheobronchial tree. The procedure was accomplished without difficulty. The patient tolerated the procedure well. Findings: Trachea/Anisa Abnormalities: Partially obstructing (about 90% obstructed) dynamic collapse was found throughout the tracheobronchial tree. Notable, mucoid, white and thick exudate was found throughout the tracheobronchial tree. Transbronchial needle aspiration of a mass was performed in the right paratracheal area using an Olympus EBUS-TBNA 21 gauge needle and sent for cell count, bacterial culture, viral smears & culture, and fungal & AFB analysis and cytology, cell count and differential, routine cytology, flow cytometry and bacterial, AFB, fungal and viral analysis. The procedure was guided by ultrasound. 8 were obtained. Stage N2. BAL was performed in the RML medial segment (B5) of the lung and sent for cell count, bacterial culture, viral smears & culture, and fungal & AFB analysis. 80 mL of fluid were instilled. 25 mL were returned. The return was clear. There were no mucoid plugs in the return fluid. An endobronchial ultrasound endoscope was utilized in order to assist with guiding the biopsy needle, better characterize the mass and better localize the mass in the right paratracheal area. Rapid On-Site Evaluation (LUISA): Preliminary cytology of the lesion in the right paratracheal area suggested the cellularity of the specimen was adequate. Impression: - Suspicious trachea lesion - Hilar lymphadenopathy of the right side - Dynamic collapse was found throughout the tracheobronchial tree. - Exudate was found throughout the tracheobronchial tree. - A transbronchial needle aspiration was performed. - Bronchoalveolar lavage was performed. - Endobronchial ultrasound was performed. - Rapid On-Site Evaluation (LUISA): Preliminary cytology of the lesion in the right paratracheal area suggested the cellularity of the specimen was adequate. - Bronchomalacia was visualized throughout the tracheobronchial tree. Recommendation: - The patient will be observed post-procedure, until all discharge criteria are met. - Await BAL, cytology and washing results. - Follow up with bronchoscopist within several days. Procedure Code(s): --- Professional --- 39801, Bronchoscopy, rigid or flexible, including fluoroscopic guidance, when performed; with transbronchial needle aspiration biopsy(s), trachea, main stem and/or lobar bronchus(i) 66263, Bronchoscopy, rigid or flexible, including fluoroscopic guidance, when performed; with bronchial alveolar lavage 70156, Bronchoscopy, rigid or flexible, including fluoroscopic guidance, when performed; with transendoscopic endobronchial ultrasound (EBUS) during bronchoscopic diagnostic or therapeutic intervention(s) for peripheral lesion(s) (List separately in addition to code for primary procedure[s]) CPT copyright 2017 [employer]. All rights reserved. The codes documented in this report are preliminary and upon tractor sweeper driver review may be revised to meet current compliance requirements. MD Surjit Raygoza MD 03/18/2019 3:14:07 PM This report has been signed electronically. Number of Addenda: 0 Note Initiated On: 03/18/2019 1:27 PM
[2019-03-18 15:15] VITALS: BP 104/63; BP 121/84; PULSE 62; RESP 16; O2SAT 99
[2019-03-18 15:30] VITALS: BP 103/71; BP 121/84; PULSE 65; RESP 16; O2SAT 98
[2019-03-18 15:35] LABS: Cytology, Body Fluid / CSF SEE PATHOLOGY REPORT
[2019-03-18 15:38] LABS: Cytology, Body Fluid / CSF SEE PATHOLOGY REPORT
[2019-03-18 15:44] VITALS: BP 112/70; BP 121/84; PULSE 62; RESP 16; TEMP 36.4; O2SAT 98
[2019-03-18 16:13] VITALS: BP 103/61; BP 121/84; PULSE 65; RESP 18; TEMP 36.1; O2SAT 95
== END 2019-03-18 16:16 | disposition home or self-care (01) ==
LOC: EN 12:20 → AC 12:22
PROVIDERS: Family Provider Internal Medicine; PCP Internal Medicine; Referring Provider Internal Medicine; Visit Provider Internal Medicine Critical Care Medicine
PROC: BB4BZZZ Ultrasonography of Pleura (ICD-10-PCS; CPT 31624; principal; 2019-03-18 13:00)
DX: J98.59 Other diseases of mediastinum, not elsewhere classified (principal); J98.09 Other diseases of bronchus, not elsewhere classified; R91.1 Solitary pulmonary nodule; R59.0 Localized enlarged lymph nodes; I25.10 Atherosclerotic heart disease of native coronary artery without angina pectoris; I49.3 Ventricular premature depolarization; I47.1 Supraventricular tachycardia; E55.9 Vitamin D deficiency, unspecified; E03.9 Hypothyroidism, unspecified; K90.0 Celiac disease; M19.90 Unspecified osteoarthritis, unspecified site; L40.50 Arthropathic psoriasis, unspecified; F32.9 Major depressive disorder, single episode, unspecified; E66.9 Obesity, unspecified; Z68.34 Body mass index [BMI] 34.0-34.9, adult; Z87.891 Personal history of nicotine dependence
CPT/HCPCS: 31624; 31629; 31654; 87015; 87070; 87075; 87077; 87116; 87205; 87206; 87252; 87278; 88108; 88161; 88305; 88312; 88313; J7120; J2405

== ENCOUNTER → 2019-03-21 08:59 | Outpatient (CLI) | payer OTHER, SELFPAY ==
[2019-03-21 08:22] VITALS: BMI 34.8
[2019-03-21 12:20] LABS: Vitamin D,25 Hydroxy 25.2 ng/mL (29.95-100.01)
[2019-03-21 12:24] LABS: Thyroid Stim Hormone (TSH) 1.01 uIU/mL (0.358-3.74)
== END ==
PROVIDERS: Family Provider Internal Medicine; PCP Internal Medicine; Visit Provider Internal Medicine
DX: E03.9 Hypothyroidism, unspecified (principal); E55.9 Vitamin D deficiency, unspecified
CPT/HCPCS: 36415; 82306; 84443

== ENCOUNTER → 2019-04-18 09:33 | Outpatient (CLI) | payer OTHER, SELFPAY ==
[2019-03-23 15:26] VITALS: BMI 34.8
--- NOTE | 2019-04-18 10:30 | PET_ITS ---
EXAMINATION: FDG PET/CT INDICATIONS: A 59-year-old male with history of pulmonary nodularity. COMPARISON EXAMINATION: CT of the chest report dated 02/18/19 INDEX LESION SIZE SUV INTERPRETATION Precarinal mediastinum (n=1) 30.1 x 37.0-mm (largest) (Frame 238) 6.3 (max) Fulfills quantitative criteria for viable neoplasm, may necessitate histopathologic investigation Right mid posterior lung-right lower lobe 15.4-mm (frame 220) 1.2 Quantitative criteria for viable neoplasm are not fulfilled, sequential radiologic investigation recommended NON-INDEX LESION SIZE SUV INTERPRETATION Left adrenal gland 2.0 Quantitative criteria for viable neoplasm are not fulfilled Bilateral inguinal regions 1.5 Quantitative criteria for viable neoplasm are not fulfilled TECHNIQUE: Following the intravenous administration of 18.32 mCi of F-18 deoxyglucose via the left antecubital fossa, multiplanar image acquisitions of the neck, chest, abdomen and pelvis to level of mid thigh, obtained at one hour post radiopharmaceutical administration contemporaneously interpreted with the current CT of the neck, chest, abdomen and pelvis to level of mid thigh, dated 04/18/[address] of the chest report dated 02/18/19 reveal: SERUM GLUCOSE LEVEL: 97 mg/dl. HEIGHT: 72 inches. WEIGHT: 250 lbs. FINDINGS: 1. Focal increased glucose metabolism is identified in the precarinal mediastinum to the right of the midline corresponding to a soft tissue density paratracheal in location. The calculated maximal standard uptake value is 6.3. The maximal axial diameter of the corresponding hypermetabolic soft tissue density on review of CT of the chest dated 04/18/19 is 30.1-mm (transverse) x 37.0-mm (AP). 2. Subtle increased glucose concentration is observed in the right mid posterior lung-right lower lobe generating a calculated maximal standard uptake value of 1.2. The maximal axial diameter of the corresponding soft tissue parenchymal density on review of CT of the chest dated 04/18/19 is 15.4-mm (AP). 3. Normal physiologic distribution of the radiopharmaceutical is apparent in the hepatic (2.7) and splenic parenchyma, both renal units, bladder and visualized intestinal tract. The visualized portion of the cerebral cortex demonstrate symmetric and preserved glucose metabolism. Prominent radiopharmaceutical concentration is noted in the ascending and descending thoracic aorta, proximal abdominal aorta commensurate with activated leukocytes associated with atherosclerotic plaque formation. Facilitated uptake is demonstrated in the left ventricular myocardium commensurate with pattern associated with failure to fast. Mild enhanced FDG uptake is noted in the left upper abdomen contiguous to the left adrenal gland generating a calculated maximal standard uptake value of 2.0. An increase in fluorine labeled glucose uptake is noted in the bilateral inguinal regions corresponding to soft tissue with fatty hilus generating a calculated maximal standard uptake value of 1.5. Quantitative criteria for viable neoplasm are not fulfilled. Pertinent CT findings are as follows: CHEST: There is atherosclerotic calcification defined in the thoracic aorta without evidence of dilatation-aneurysm formation. Coronary arterial calcification is observed. Bilateral axillary soft tissue densities with fatty hilus formation are non-glucose avid. There are no additional parenchymal densities-nodules defined in the right and left hemithorax demonstrating discernible increased FDG uptake. ABDOMEN AND PELVIS: There is borderline fatty metamorphosis-steatosis defined in the hepatic parenchyma. There is atherosclerotic calcification defined in the abdominal aorta without evidence of dilatation-aneurysm formation. Pelvic arterial calcification is observed. There is evidence of prior vasectomy. Right and left subcentimeter inguinal soft tissue densities are ametabolic. Calcification is demonstrated within the prostate gland without evidence of facilitated FDG uptake. Calcified phlebolith formation is noted in the bilateral lower hemipelvis. SKELETAL: Degenerative changes are noted in the cervical, thoracic and lumbar spine. PET/PET/CT Tumor Base -Thigh Init IMPRESSION: 1. Increased FDG concentration noted in the precarinal mediastinum fulfills quantitative criteria for viable neoplasm with single point technique. Histopathologic analysis should be considered. 2. Barely perceptible enhanced fluorine labeled glucose uptake noted in the right mid posterior lung-right lower lobe does not fulfill quantitative criteria for viable neoplasm. (Cartagena et al, Annals of Internal Medicine, 138:724, 2003). 3. Metabolic and/or anatomic stability may be ensured in the right hemithorax pulmonary parenchymal abnormality with repeat FDG PET study and/or CT of the thorax in 3-6 months if clinically indicated. (Xiu, Journal of Nuclear Medicine 45:88, P2004 Isabella, Seminars in Thoracic and Cardiovascular Surgery 14:292, 2002). Electronic Signature Prashant Mary D.O. Electronically Signed: Prashant Mary DO at 19:28 EST Tel , Service support ,
== END ==
PROVIDERS: Family Provider Internal Medicine; PCP Internal Medicine
DX: R91.8 Other nonspecific abnormal finding of lung field (principal); D49.1 Neoplasm of unspecified behavior of respiratory system; R59.0 Localized enlarged lymph nodes; R91.1 Solitary pulmonary nodule
CPT/HCPCS: 78815; A9552

== ENCOUNTER → 2019-04-21 11:38 | Outpatient (CLI) | payer OTHER, SELFPAY ==
[2019-03-23 15:26] VITALS: BMI 34.8
--- NOTE | 2019-04-21 13:14 | PFTCOMP ---
COMPLETE PULMONARY FUNCTION TEST INTERPRETATION Brief HPI: Patient is a 59 year old male, currently under the care of myself, who presents to [facility] for complete pulmonary function tests secondary to diagnosis of lung nodule. Respiratory therapist reports good effort, but had difficulty producing reproducible results. Interpretation: Forced expiration spirometry shows no large airways obstructive ventilatory defect with an FEV1 of 92% predicted. There is no significant bronchodilator response by strict ATS criteria. Spirograms are of good quality and plateau slowly, indicating slowly emptying areas of the lungs. The respiratory flow volume loop shows a normal pattern. Lung volumes by body plethysmography show an elevated total lung capacity at 8.4 L, 117% predicted. FRC and RV are elevated out of proportion. Lung volume measurements are consistent with hyperinflation and air-trapping. Diffusion capacity by carbon monoxide is normal at 95% predicted. The airway resistance is elevated. Compared to previous pulmonary function tests from 08/06/2018, there has been no significant change. Impression: Grossly normal pulmonary function test with some stigmata of possible small airways disease.
== END ==
PROVIDERS: Family Provider Internal Medicine; PCP Internal Medicine; Referring Provider Internal Medicine Critical Care Medicine; Visit Provider Internal Medicine Critical Care Medicine
DX: R91.1 Solitary pulmonary nodule (principal); R91.8 Other nonspecific abnormal finding of lung field
CPT/HCPCS: 94060; 94726; 94729

== ENCOUNTER → 2019-10-25 14:29 | Outpatient (CLI) | payer OTHER, SELFPAY ==
[2019-10-25 14:02] VITALS: BMI 34.8
== END ==
PROVIDERS: PCP Internal Medicine; Referring Provider Nurse Practitioner Family; Visit Provider Nurse Practitioner Family
DX: E03.9 Hypothyroidism, unspecified (principal)
CPT/HCPCS: 36415; 84443

== ENCOUNTER → 2019-12-14 13:43 | Outpatient (CLI) | payer OTHER, SELFPAY ==
[2019-12-14 13:05] VITALS: BMI 35.6
[2019-12-14 16:02] LABS: Absolute Lymphocyte Count 2.12 X10^3/uL (0.83-4.51); Absolute Neutrophil Count 5.7 X10^3/uL (2.0-7.7); Basophil# 0.04 X10^3/uL; Basophil% 0.5 % (0-1); Eosinophil# 0.12 X10^3/uL; Eosinophils% 1.4 % (0-5); Hematocrit 45.4 % (40-54); Hemoglobin 14.6 g/dL (13.0-16.5); Lymphocyte # 2.12 X10^3/ul (4.0); Lymphocyte % 24.4 % (19-41); Mean Corp Hgb Conc 32.2 g/dL (32-36); Mean Corpuscular Hgb 29.5 pg (27.0-32.0); Mean Corpuscular Volume 91.7 fL (80-94); Mean Platelet Vol. 9.6 fl (6.2-12.0); Monocyte# 0.61 X10^3/uL; NRBC Flagged by Analyzer 0 % (0-5); Neutrophil # 5.72 X10^3/uL (2.7-7.7); Neutrophil % 65.8 % (47-70); Platelet Count 302 K/mm3 (150-450); RBC Distribution Width CV 13.2 % (11.6-14.6); RBC Distribution Width SD 44.4 fl (35.1-43.9); Red Blood Count 4.95 M/mm3 (4.6-6.2); White Blood Count 8.7 K/mm3 (4.4-11.0)
[2019-12-14 16:14] LABS: Vitamin D,25 Hydroxy 29.7 ng/mL
[2019-12-14 16:43] LABS: AST(SGOT) 24 U/L (15-37); Alanine Aminotransfer ALT/SGPT 49 U/L (16-61); Albumin, Serum 3.8 g/dL (3.2-5.0); Alkaline Phosphatase 100 U/L (45-117); Anion Gap 4 (5-15); BUN 18 mg/dL (7-18); BUN/Creat Ratio 18.9 RATIO (10-20); Calcium,Total 8.7 mg/dL (8.5-10.1); Chloride 109 mmol/L (98-107); Cholesterol 183 mg/dL (200); Creatinine, Serum 0.95 mg/dL (0.70-1.30); EST Glomerular Filtration Rate 86 mL/min (>60); Est Glom Filt Rate - Afr Amer 104 mL/min (>60); Globulin 3.7 g/dL (2.2-4.2); Glucose 105 mg/dL (74-106); High Density Lipoprotein 48 mg/dL; Potassium 4.2 mmol/L (3.5-5.1); Protein, Total 7.5 g/dL (6.4-8.2); Sodium Level 142 mmol/L (136-145); Thyroid Stim Hormone (TSH) 2.24 uIU/mL (0.358-3.74); Triglycerides 199 mg/dL; Very Low Density Lipoprotein 40 mg/dL (5-40)
== END ==
PROVIDERS: PCP Internal Medicine; Referring Provider Nurse Practitioner Family; Visit Provider Nurse Practitioner Family
DX: Z00.00 Encounter for general adult medical examination without abnormal findings (principal); E03.9 Hypothyroidism, unspecified; E55.9 Vitamin D deficiency, unspecified
CPT/HCPCS: 36415; 80053; 80061; 82306; 84443; 85025

== ENCOUNTER → 2020-06-06 10:16 | Outpatient (CLI) | payer OTHER, SELFPAY ==
[2020-06-06 09:55] VITALS: BMI 35.5
[2020-06-06 12:57] LABS: Thyroid Stim Hormone (TSH) 0.83 uIU/mL (0.358-3.74)
== END ==
PROVIDERS: PCP Internal Medicine; Referring Provider Nurse Practitioner Family; Visit Provider Nurse Practitioner Family
DX: E03.9 Hypothyroidism, unspecified (principal)
CPT/HCPCS: 36415; 84443

== ENCOUNTER → 2020-12-04 14:31 | Outpatient (CLI) | payer OTHER, SELFPAY ==
[2020-12-04 14:01] VITALS: BMI 35.5
[2020-12-04 16:51] LABS: Absolute Lymphocyte Count 1.82 X10^3/uL (0.83-4.51); Absolute Neutrophil Count 5.1 X10^3/uL (2.0-7.7); Basophil# 0.05 X10^3/uL; Basophil% 0.6 % (0-1); Eosinophil# 0.28 X10^3/uL; Eosinophils% 3.5 % (0-5); Hematocrit 44.5 % (40-54); Hemoglobin 14.2 g/dL (13.0-16.5); Lymphocyte # 1.82 X10^3/ul (0.83-4.51); Lymphocyte % 22.9 % (19-41); Mean Corp Hgb Conc 31.9 g/dL (32-36); Mean Corpuscular Hgb 29.9 pg (27.0-32.0); Mean Corpuscular Volume 93.7 fL (80-94); Mean Platelet Vol. 10.1 fl (6.2-12.0); Monocyte# 0.68 X10^3/uL; Monocyte% 8.6 % (0-10); NRBC Flagged by Analyzer 0 % (0-5); Neutrophil # 5.05 X10^3/uL (2.7-7.7); Neutrophil % 63.5 % (47-70); Platelet Count 290 K/mm3 (150-450); RBC Distribution Width CV 13.1 % (11.6-14.6); RBC Distribution Width SD 45.1 fl (35.1-43.9); Red Blood Count 4.75 M/mm3 (4.6-6.2)
[2020-12-04 17:16] LABS: ALB/GLOB Ratio 1.1 RATIO (0.9-2.4); AST(SGOT) 33 U/L (15-37); Alanine Aminotransfer ALT/SGPT 56 U/L (16-61); Albumin, Serum 3.8 g/dL (3.2-5.0); Alkaline Phosphatase 95 U/L (45-117); Anion Gap 8 (5-15); BUN 16 mg/dL (7-18); BUN/Creat Ratio 18.8 RATIO (10-20); Calcium,Total 8.5 mg/dL (8.5-10.1); Chloride 105 mmol/L (98-107); Cholesterol 167 mg/dL (200); Creatinine, Serum 0.85 mg/dL (0.70-1.30); EST Glomerular Filtration Rate 98 mL/min (>60); Est Glom Filt Rate - Afr Amer 118 mL/min (>60); Globulin 3.6 g/dL (2.2-4.2); Glucose 94 mg/dL (74-106); High Density Lipoprotein 40 mg/dL; PSA,Total - Annual Screen 0.78 ng/mL (0.00-4.00); Potassium 4.3 mmol/L (3.5-5.1); Protein, Total 7.4 g/dL (6.4-8.2); Sodium Level 138 mmol/L (136-145); Thyroid Stim Hormone (TSH) 1.32 uIU/mL (0.358-3.74); Triglycerides 274 mg/dL; Very Low Density Lipoprotein 55 mg/dL (5-40)
== END ==
PROVIDERS: PCP Internal Medicine; Referring Provider Nurse Practitioner Family; Visit Provider Nurse Practitioner Family
DX: Z00.00 Encounter for general adult medical examination without abnormal findings (principal); Z12.5 Encounter for screening for malignant neoplasm of prostate
CPT/HCPCS: 36415; 80053; 80061; 84153; 84443; 85025; G0103

== ENCOUNTER 2021-06-04 15:31 | Outpatient (CLI) | payer OTHER, SELFPAY ==
[2021-06-04 17:02] LABS: Thyroid Stim Hormone (TSH) 4.95 uIU/mL (0.358-3.74)
== END 2021-06-04 23:59 | disposition home or self-care (01) ==
LOC: BIMLAB 15:32
PROVIDERS: PCP Internal Medicine; Referring Provider Nurse Practitioner Family; Visit Provider Nurse Practitioner Family
DX: E03.9 Hypothyroidism, unspecified (principal)
CPT/HCPCS: 36415; 84443

== ENCOUNTER → 2022-01-08 | Outpatient (CLI) | payer OTHER, SELFPAY | END | disposition home or self-care (01) | LOC: BIMLAB 08:00 | PROVIDERS: PCP Internal Medicine; Referring Provider Nurse Practitioner Family; Visit Provider Nurse Practitioner Family | DX: Z00.00 Encounter for general adult medical examination without abnormal findings (principal) | CPT/HCPCS: 36415 ==

== ENCOUNTER → 2023-01-07 | Outpatient (CLI) | payer OTHER, SELFPAY ==
[2023-01-07 12:31] LABS: Absolute Lymphocyte Count 1.94 X10^3/uL (0.83-4.51); Absolute Neutrophil Count 4.7 X10^3/uL (2.0-7.7); Basophil# 0.05 X10^3/uL; Basophil% 0.7 % (0-1); Eosinophil# 0.17 X10^3/uL; Eosinophils% 2.3 % (0-5); Hematocrit 44.3 % (40-54); Hemoglobin 14.1 g/dL (13.0-16.5); Lymphocyte # 1.94 X10^3/ul (0.83-4.51); Lymphocyte % 25.8 % (19-41); Mean Corp Hgb Conc 31.8 g/dL (32-36); Mean Corpuscular Hgb 29.8 pg (27.0-32.0); Mean Corpuscular Volume 93.7 fL (80-94); Mean Platelet Vol. 10.2 fl (6.2-12.0); Monocyte# 0.63 X10^3/uL; Monocyte% 8.4 % (0-10); NRBC Flagged by Analyzer 0 % (0-5); Neutrophil # 4.67 X10^3/uL (2.7-7.7); Platelet Count 276 K/mm3 (150-450); RBC Distribution Width CV 13.2 % (11.6-14.6); RBC Distribution Width SD 44.9 fl (35.1-43.9); Red Blood Count 4.73 M/mm3 (4.6-6.2); White Blood Count 7.5 K/mm3 (4.4-11.0)
[2023-01-07 13:03] LABS: ALB/GLOB Ratio 1.1 RATIO (0.9-2.4); AST(SGOT) 20 U/L (15-37); Alanine Aminotransfer ALT/SGPT 39 U/L (16-61); Albumin, Serum 3.8 g/dL (3.2-5.0); Alkaline Phosphatase 90 U/L (45-117); Anion Gap 2 (5-15); BUN 16 mg/dL (7-18); BUN/Creat Ratio 20.9 RATIO (10-20); Calcium,Total 8.5 mg/dL (8.5-10.1); Chloride 109 mmol/L (98-107); Cholesterol 154 mg/dL (200); Creatinine, Serum 0.76 mg/dL (0.70-1.30); EST Glomerular Filtration Rate 110 mL/min (>60); Est Glom Filt Rate - Afr Amer 133 mL/min (>60); Globulin 3.4 g/dL (2.2-4.2); Glucose 98 mg/dL (74-106); High Density Lipoprotein 49 mg/dL; Potassium 4.3 mmol/L (3.5-5.1); Protein, Total 7.2 g/dL (6.4-8.2); Sodium Level 140 mmol/L (136-145); Thyroid Stim Hormone (TSH) 1.17 uIU/mL (0.358-3.74); Triglycerides 110 mg/dL; Very Low Density Lipoprotein 22 mg/dL (5-40)
[2023-01-07 13:08] LABS: PSA,Total - Annual Screen 0.84 ng/mL (0.00-4.00)
== END | disposition home or self-care (01) ==
LOC: BIMLAB 11:05
PROVIDERS: PCP Internal Medicine; Referring Provider Internal Medicine; Visit Provider Internal Medicine
DX: Z00.00 Encounter for general adult medical examination without abnormal findings (principal); Z12.5 Encounter for screening for malignant neoplasm of prostate; E03.9 Hypothyroidism, unspecified
CPT/HCPCS: 36415; 80053; 80061; 84153; 84443; 85025; G0103

== ENCOUNTER → 2024-01-06 | Outpatient (CLI) | payer OTHER, SELFPAY ==
[2024-01-06 12:45] LABS: Absolute Lymphocyte Count 1.92 X10^3/uL (0.83-4.51); Absolute Neutrophil Count 5.4 X10^3/uL (2.0-7.7); Basophil# 0.06 X10^3/uL; Basophil% 0.7 % (0-1); Eosinophil# 0.15 X10^3/uL; Eosinophils% 1.8 % (0-5); Hematocrit 44.5 % (40-54); Lymphocyte # 1.92 X10^3/ul (0.83-4.51); Lymphocyte % 23.1 % (19-41); Mean Corp Hgb Conc 31.5 g/dL (32-36); Mean Corpuscular Hgb 29.5 pg (27.0-32.0); Mean Corpuscular Volume 93.7 fL (80-94); Mean Platelet Vol. 10.4 fl (6.2-12.0); Monocyte# 0.71 X10^3/uL; Monocyte% 8.5 % (0-10); NRBC Flagged by Analyzer 0 % (0-5); Neutrophil # 5.38 X10^3/uL (2.7-7.7); Neutrophil % 64.8 % (47-70); Platelet Count 243 K/mm3 (150-450); RBC Distribution Width CV 13.2 % (11.6-14.6); RBC Distribution Width SD 45.2 fl (35.1-43.9); Red Blood Count 4.75 M/mm3 (4.6-6.2); White Blood Count 8.3 K/mm3 (4.4-11.0)
[2024-01-06 14:03] LABS: AST(SGOT) 24 U/L (15-37); Alanine Aminotransfer ALT/SGPT 42 U/L (16-61); Albumin, Serum 3.6 g/dL (3.2-5.0); Alkaline Phosphatase 95 U/L (45-117); Anion Gap 9 (5-15); BUN 16 mg/dL (7-18); BUN/Creat Ratio 18.3 RATIO (10-20); Calcium,Total 8.8 mg/dL (8.5-10.1); Chloride 108 mmol/L (98-107); Cholesterol 169 mg/dL (200); Creatinine, Serum 0.87 mg/dL (0.70-1.30); EST Glomerular Filtration Rate 94 mL/min (>60); Est Glom Filt Rate - Afr Amer 114 mL/min (>60); Globulin 3.6 g/dL (2.2-4.2); Glucose 95 mg/dL (74-106); High Density Lipoprotein 53 mg/dL; Potassium 4.6 mmol/L (3.5-5.1); Protein, Total 7.2 g/dL (6.4-8.2); Sodium Level 143 mmol/L (136-145); Triglycerides 118 mg/dL; Very Low Density Lipoprotein 24 mg/dL (5-40)
== END | disposition home or self-care (01) ==
LOC: BIMLAB 09:39
PROVIDERS: PCP Internal Medicine; Referring Provider Internal Medicine; Visit Provider Internal Medicine
DX: Z00.00 Encounter for general adult medical examination without abnormal findings (principal); E03.9 Hypothyroidism, unspecified
CPT/HCPCS: 36415; 80053; 80061; 84443; 85025

== ENCOUNTER → 2024-02-17 | Outpatient (CLI) | payer OTHER, SELFPAY ==
[2024-02-17 13:17] LABS: PSA,Total - Annual Screen 1.02 ng/mL (0.00-4.00)
== END | disposition home or self-care (01) ==
LOC: BIMLAB 10:49
PROVIDERS: PCP Internal Medicine; Referring Provider Internal Medicine; Visit Provider Internal Medicine
DX: Z00.00 Encounter for general adult medical examination without abnormal findings (principal)
CPT/HCPCS: 36415; 84153; G0103

== ENCOUNTER 2024-05-26 18:23 | Emergency (ER) | payer BC, SELFPAY ==
[2024-05-26] VITALS (9 sets, daily range): BP systolic 95–154; BP diastolic 46–112; PULSE 82–104; RESP 14–20; TEMP 37.6; O2SAT 93–98; BMI 36.6
--- NOTE | 2024-05-26 18:26 | EKG12_ITS ---
Test Reason : CP Blood Pressure : */* mmHG Vent. Rate : 93 BPM Atrial Rate : 93 BPM P-R Int : 134 ms QRS Dur : 80 ms QT Int : 370 ms P-R-T Axes : 43 4 26 degrees QTcB Int : 460 ms Normal sinus rhythm Possible Left atrial enlargement Septal infarct , age undetermined Abnormal ECG Confirmed by LANIE CHIN, DARWIN ([id number]), legal editor KAYLIE HARGROVE ([id number]) on 05/30/2024 6:06:38 AM Referred By: Confirmed By: DARWIN DELA CRUZ MD
--- NOTE | 2024-05-26 19:09 | EX.ED.DYSGE1 ---
HPI <KEELEY Barclay - Last Filed: 05/26/24 21:37> History of Present Illness Chief Complaint: Chest Pain Narrative Narrative: Patient is a 64-year-old male with history of anxiety, hypothyroidism, chronic back pain who presents to the emergency department for 2 days of generalized malaise, left-sided chest wall pain, cough, as well as feeling fever and chilled. Patient states he did have some dry heaving today. Secondary to the pain being pressure-like and on the left side of his chest he was concerned for his heart. He denies any history of ACS or ND. Denies any sick contacts. Denies any blood in stool or vomit. [facility] <KEELEY Barclay - Last Filed: 05/26/24 21:37> [facility] Medical History (Updated 05/26/24 @ 21:35 by KEELEY Barclay) Essential tremor Preventative health care Encounter for preventative adult health care examination Hypersomnia Encounter for preventative adult health care examination Obesity Paroxysmal supraventricular tachycardia Celiac disease Intermittent palpitations Atherosclerosis of coronary artery of [place] heart with angina pectoris Vitamin D deficiency Seasonal allergies Anxiety Hypothyroidism Chronic back pain Arthritis Home Medications ?Medication ?Instructions ?Recorded ?Last Taken ?Type fluticasone propionate 50 2 spray intranasal DAILY 01/07/22 Unknown History mcg/actuation nasal spray,suspension (Flonase Allergy Relief) budesonide-formoterol HFA 160 2 puff inhalation BID #10.2 grams 03/10/22 Unknown Rx mcg-4.5 mcg/actuation aerosol inhaler (Symbicort) azithromycin 250 mg tablet See Rx Instructions PO .COMPLEX #6 03/23/24 Unknown Rx tabs benzonatate 100 mg capsule 200 mg (2 x 100 mg) PO TID PRN 03/23/24 Unknown Rx cough #30 caps escitalopram oxalate 20 mg tablet See Rx Instructions .Route 04/19/24 Unknown Rx .COMPLEX #90 tabs levothyroxine 200 mcg tablet 200 mcg PO DAILY THYROID #90 tabs 04/19/24 Unknown Rx amoxicillin 875 mg-potassium 1 tab PO BID 7 days #14 tabs 05/26/24 Unknown Rx clavulanate 125 mg tablet azithromycin 250 mg tablet 250 mg PO DAILY #4 tabs 05/26/24 Unknown Rx (Zithromax) ondansetron 4 mg disintegrating 4 mg PO Q8H PRN PRN Nausea #10 tabs 05/26/24 Unknown Rx tablet Allergy/AdvReac Type Severity Reaction Status Date / Time Seasonal Allergies: Uncoded Allergy Intermediate watery eyes Verified 05/26/24 18:23 Surgical History History of lung biopsy History of left heart catheterization (02/18/19) History of radiofrequency ablation procedure for cardiac arrhythmia (08/01/09) History of knee surgery History of deviated nasal septum 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 Positive for weakness, fever and chills Eyes: Negative for vision loss, vision change, double vision ENT: Negative for any sore throat, ear pain, congestion Cardiovascular: Negative for any tightness, palpitations. Positive left-sided chest pressure Respiratory: Negative for any sputum production, hemoptysis, dyspnea, dyspnea on exertion, orthopnea. Positive for cough Gastrointestinal: Negative for any abdominal pain, diarrhea, constipation, blood in stool, blood in vomit. Positive for nausea and vomiting : Negative for any urinary frequency, dysuria, retention, blood in urine Muscle skeletal: Negative for any neck pain, back pain Neurological: Negative for any headache, syncope, dizziness Skin: Negative for any rashes, itching, abrasions, lacerations Psychiatric: Negative for any depression, anxiety, stress, suicidal ideation, homicidal ideation Hematologic: Negative for any excessive bruising, easy bleeding EXAM <KEELEY Barclay - Last Filed: 05/26/24 21:37> Physical Exam Narrative Exam Narrative: Vital signs reviewed. Patient does appear to be slightly flushed. However patient's temperature was just over 99 ?F. HEET: Head normocephalic atraumatic, TMs clear bilaterally. Posterior pharynx is clear, moist mucous membranes. Nares clear bilaterally. Neck: Supple with no lymphadenopathy or tenderness. No signs of meningismus. Cardiac: Regular rate and rhythm no murmurs gallops or rubs, equal peripheral pulses bilaterally. Respiratory: Lungs clear to auscultation bilaterally. No chest tenderness. Abdomen: Soft, nontender, nondistended. No abdominal bruit or pulsatile masses. No hepatosplenomegaly Extremities: No peripheral edema, no signs of gross trauma or deformity. Active full range of motion of all extremities. Neuro: Cranial nerves II through XII intact, no focal neurological deficits. Skin: Clean dry and intact with no rash, purpura, petechiae, vesicles or pustules. Backs/flank: No CVA tenderness, no midline spinal tenderness, no deformity. Psych: Normal mood and affect. No SI, HI or acute psychosis. Const Vital Signs: 05/26/24 18:25 05/26/24 18:40 05/26/24 18:40 Temperature 99.6 F H Temperature Source Temporal Pulse Rate 104 H Respiratory Rate 20 H Respiratory Effort Short of Breath Blood Pressure 152/88 H Blood Pressure Mean 109 Pulse Ox 98 93 Oxygen Delivery Method Room Air Room Air 05/26/24 19:23 05/26/24 19:30 05/26/24 20:00 Temperature Temperature Source Pulse Rate 95 96 88 Respiratory Rate 14 18 14 Respiratory Effort Blood Pressure 154/112 H 121/46 H 119/60 Blood Pressure Mean 126 69 75 Pulse Ox 93 94 95 Oxygen Delivery Method Room Air 05/26/24 20:30 05/26/24 21:00 05/26/24 21:51 Temperature 99.6 F H Temperature Source Pulse Rate 82 103 H 103 H Respiratory Rate 15 17 17 Respiratory Effort Blood Pressure 95/56 L 95/56 L 95/56 L Blood Pressure Mean 68 69 69 Pulse Ox 95 95 95 Oxygen Delivery Method <Dr. Sam Noriega MD - Last Filed: 05/26/24 23:24> Physical Exam Const Vital Signs: 05/26/24 18:25 05/26/24 18:40 05/26/24 18:40 Temperature 99.6 F H Temperature Source Temporal Pulse Rate 104 H Respiratory Rate 20 H Respiratory Effort Short of Breath Blood Pressure 152/88 H Blood Pressure Mean 109 Pulse Ox 98 93 Oxygen Delivery Method Room Air Room Air 05/26/24 19:23 05/26/24 19:30 05/26/24 20:00 Temperature Temperature Source Pulse Rate 95 96 88 Respiratory Rate 14 18 14 Respiratory Effort Blood Pressure 154/112 H 121/46 H 119/60 Blood Pressure Mean 126 69 75 Pulse Ox 93 94 95 Oxygen Delivery Method Room Air 05/26/24 20:30 05/26/24 21:00 05/26/24 21:51 Temperature 99.6 F H Temperature Source Pulse Rate 82 103 H 103 H Respiratory Rate 15 17 17 Respiratory Effort Blood Pressure 95/56 L 95/56 L 95/56 L Blood Pressure Mean 68 69 69 Pulse Ox 95 95 95 Oxygen Delivery Method SH[facility] <KEELEY Barclay - Last Filed: 05/26/24 21:37> [facility] Lab Data Labs: Laboratory Results - last 24 hr 05/26/24 05/26/24 19:05 21:16 WBC 14.9 H RBC 4.85 Hgb 14.7 Hct 44.0 MCV 90.7 MCH 30.3 MCHC 33.4 RDW Std Deviation 43.9 RDW Coeff of Alondra 13.3 Plt Count 271 MPV 9.5 Immature Gran % (Auto) 0.700 Neut % (Auto) 79.5 H Lymph % (Auto) 11.2 L [place] % (Auto) 7.5 Eos % (Auto) 0.6 Baso % (Auto) 0.5 Absolute Neuts (auto) 11.8 H Absolute Lymphs (auto) 1.66 Nucleated RBC % 0 Sodium 134 L Potassium 4.7 Chloride 103 Carbon Dioxide 24.0 Anion Gap 7 BUN 14 Creatinine 1.04 Estim Creat Clear Calc 98.27 Est GFR (MDRD) Af Amer 93 Est GFR (MDRD) Non-Af 77 BUN/Creatinine Ratio 13.5 Glucose 105 Calcium 9.0 Total Bilirubin 0.30 Direct Bilirubin 0.07 AST 37 ALT 44 Alkaline Phosphatase 96 Troponin I High Sens 5 5 Total Protein 7.7 Albumin 3.8 Globulin 3.9 Lipase 18 Radiography Diagnostic Testing: Clinical Impression(s) from Imaging Studies Chest X-Ray 05/26/24 19:18 IMPRESSION: Hilar prominence suggestive of vascular congestion. Reading Location: [facility] EKG EKG shows normal sinus rhythm: Attestation: I personally reviewed and interpreted this EKG as follows: Comments: Patient's EKG shows normal sinus rhythm, rate of 93 bpm, FL interval 134 ms, QRS duration 80 ms, no acute ST elevation, no acute infarct Treatment and Re-Evaluation :: Differential diagnosis includes however is not limited to: Community-acquired pneumonia, COVID-19, influenza, RSV, ACS, ND, pleural effusion Patient appears generally well, vital signs are stable, patient is nontoxic-appearing. Presenting to the emergency department for complaints of left-sided chest pain, cough, nausea and vomiting, fever and chills. Patient was given a cardiac workup including troponin, basic labs, secondary to nausea and vomiting, lipase and liver panel be ordered. Troponin will be ordered, COVID-19 influenza RSV swab. Two-view chest x-ray. Patient be given IV fluids Zofran and Tylenol. Will be reevaluated. All radiologic examinations were read, reviewed by the emergency department attending. From these reads, a plan of care will be put in place. <Dr. Sam Noriega MD - Last Filed: 05/26/24 23:24> [facility] MDM Narrative Medical decision making narrative: I have personally performed a face to face assessment of the patient and have reviewed the ADRIEL Note. I performed a substantive portion of the visit including all aspects of the following. My goodson findings include: History is cough, some central chest discomfort, dyspnea with exertion, and fevers, on day #3. No leg edema and no orthopnea. No syncope or near syncope. Exposed to others who he states have had pneumonia. Exam is lungs clear to auscultation no splinting with deep inspiration, no calf tenderness or pedal edema. Abdomen benign. Limited exam due to body habitus to some degree. Patient in no distress conversive. Medical Decison Making EKG normal sinus rhythm without signs of repolarization abnormality or acute injury and troponin normal, arguing against cardiac etiology and myocarditis. He has a leukocytosis, he is not hypoxic, and on my interpretation his two-view chest x-ray shows a right lower lobe infiltrate. Radiology is interpreted and as venous congestion, but in context clinically I disagree. We are treating him for pneumonia, discussed all this with patient and significant other, close outpatient follow-up advised, there has been mycoplasma in the region we are covering for that in addition to classic strep pneumo. Other additions or changes: [None] Lab Data Labs: Laboratory Results - last 24 hr 05/26/24 05/26/24 19:05 21:16 WBC 14.9 H RBC 4.85 Hgb 14.7 Hct 44.0 MCV 90.7 MCH 30.3 MCHC 33.4 RDW Std Deviation 43.9 RDW Coeff of Alondra 13.3 Plt Count 271 MPV 9.5 Immature Gran % (Auto) 0.700 Neut % (Auto) 79.5 H Lymph % (Auto) 11.2 L [place] % (Auto) 7.5 Eos % (Auto) 0.6 Baso % (Auto) 0.5 Absolute Neuts (auto) 11.8 H Absolute Lymphs (auto) 1.66 Nucleated RBC % 0 Sodium 134 L Potassium 4.7 Chloride 103 Carbon Dioxide 24.0 Anion Gap 7 BUN 14 Creatinine 1.04 Estim Creat Clear Calc 98.27 Est GFR (MDRD) Af Amer 93 Est GFR (MDRD) Non-Af 77 BUN/Creatinine Ratio 13.5 Glucose 105 Calcium 9.0 Total Bilirubin 0.30 Direct Bilirubin 0.07 AST 37 ALT 44 Alkaline Phosphatase 96 Troponin I High Sens 5 5 Total Protein 7.7 Albumin 3.8 Globulin 3.9 Lipase 18 Radiography Diagnostic Testing: Clinical Impression(s) from Imaging Studies Chest X-Ray 05/26/24 19:18 IMPRESSION: Hilar prominence suggestive of vascular congestion. Reading Location: [facility] Discharge Plan Triage Chief Complaint: Chest Pain ED Midlevel Provider: Aniket Feliz ED Provider: Sam Noriega Dx/Rx/DC Orders Clinical Impression: Community acquired pneumonia Instructions: Chest and Lung Problems, ED Pneumonia (Adult) Prescriptions: New ondansetron 4 mg tablet,disintegrating 4 mg PO Q8H PRN PRN (Reason: Nausea) Qty: 10 0RF azithromycin [Zithromax] 250 mg tablet 250 mg PO DAILY Qty: 4 0RF Rx Instructions: Received 500 mg Zithromax in the emergency department. amoxicillin-pot clavulanate 875-125 mg tablet 1 tab PO BID 7 Days Qty: 14 0RF No Action fluticasone propionate [Flonase Allergy Relief] 50 mcg/actuation spray,suspension 2 spray intranasal DAILY Rx Instructions: administer into each nostril azithromycin 250 mg tablet See Rx Instructions PO .COMPLEX Qty: 6 0RF Rx Instructions: take 500 mg today (day 1), then 250 mg for 4 days (days 2-5) PO benzonatate 100 mg capsule 200 mg PO TID PRN (Reason: cough) Qty: 30 0RF budesonide-formoterol [Symbicort] 160-4.5 mcg/actuation HFA aerosol inhaler 2 puff inhalation BID Qty: 10.2 2RF levothyroxine 200 mcg tablet 200 mcg PO DAILY Qty: 90 0RF escitalopram oxalate 20 mg tablet See Rx Instructions .ROUTE .COMPLEX Qty: 90 0RF Dose Instruction: TAKE 1 TABLET BY MOUTH ONCE DAILY FOR DEPRESSION Rx Instructions: TAKE 1 TABLET BY MOUTH ONCE DAILY FOR DEPRESSION Primary Care Provider: Neo Tarango Referrals: Neo Tarango MD [Primary Care Provider] - Activity Restrictions/Additional Instructions: We believe that you have pneumonia in your right lower lobe. You are on 2 different antibiotics, I have given you the first dose of the azithromycin today, you will take this for 4 more days, the Augmentin is twice a day for 7 days. The Zofran is for nausea. Print Language: Urdu Disposition Disposition: Home, Self Care Discharge Date/Time: 05/26/24 21:57
[2024-05-26 19:11] LABS: Absolute Lymphocyte Count 1.66 X10^3/uL (0.83-4.51); Absolute Neutrophil Count 11.8 X10^3/uL (2.0-7.7); Basophil# 0.07 X10^3/uL; Basophil% 0.5 % (0-1); Eosinophil# 0.09 X10^3/uL; Eosinophils% 0.6 % (0-5); Hemoglobin 14.7 g/dL (13.0-16.5); Lymphocyte # 1.66 X10^3/ul (0.83-4.51); Lymphocyte % 11.2 % (19-41); Mean Corp Hgb Conc 33.4 g/dL (32-36); Mean Corpuscular Hgb 30.3 pg (27.0-32.0); Mean Corpuscular Volume 90.7 fL (80-94); Mean Platelet Vol. 9.5 fl (6.2-12.0); Monocyte# 1.12 X10^3/uL; Monocyte% 7.5 % (0-10); NRBC Flagged by Analyzer 0 % (0-5); Neutrophil # 11.83 X10^3/uL (2.7-7.7); Neutrophil % 79.5 % (47-70); Platelet Count 271 K/mm3 (150-450); RBC Distribution Width CV 13.3 % (11.6-14.6); RBC Distribution Width SD 43.9 fl (35.1-43.9); Red Blood Count 4.85 M/mm3 (4.6-6.2); White Blood Count 14.9 K/mm3 (4.4-11.0)
[2024-05-26] MEDS: Acetaminophen 500 MG Tablet 1000 MG PO (19:13)
[2024-05-26] MEDS: Ondansetron 4 MG/2 ML Vial IV (19:14)
[2024-05-26] MEDS: 0.9% Normal Saline (1000mL) 1,000 ML 999 ML IV (19:14)
--- NOTE | 2024-05-26 19:18 | RAD_ITS ---
PROCEDURE: CHEST PA AND LATERAL REASON FOR EXAM: Chest pain. TECHNIQUE: Frontal and lateral views of the chest. COMPARISON: None. FINDINGS: The heart size is normal. The mediastinal contour is unremarkable. Hilar prominence suggestive of vascular congestion. The bones are unremarkable. RAD/Chest PA and Lateral IMPRESSION: Hilar prominence suggestive of vascular congestion. Reading Location: [id number]
[2024-05-26 19:35] LABS: AST(SGOT) 37 U/L (15-37); Alanine Aminotransfer ALT/SGPT 44 U/L (16-61); Albumin, Serum 3.8 g/dL (3.2-5.0); Alkaline Phosphatase 96 U/L (45-117); Anion Gap 7 (5-15); BUN 14 mg/dL (7-18); BUN/Creat Ratio 13.5 RATIO (10-20); Bilirubin, Direct 0.07 mg/dL (0.00-0.30); Chloride 103 mmol/L (98-107); Creatinine, Serum 1.04 mg/dL (0.70-1.30); EST Glomerular Filtration Rate 77 mL/min (>60); Est Glom Filt Rate - Afr Amer 93 mL/min (>60); Estimated Creatinine Clearance 98.27 ml/min; Globulin 3.9 g/dL (2.2-4.2); Glucose 105 mg/dL (74-106); Lipase 18 U/L (13-75); Potassium 4.7 mmol/L (3.5-5.1); Protein, Total 7.7 g/dL (6.4-8.2); Sodium Level 134 mmol/L (136-145); Troponin-I HS (w/2H Reflex) 5 pg/mL (3.0-78.0)
[2024-05-26 21:08] LABS: Reflex Troponin-HS? (from REC) Y
[2024-05-26] MEDS: Azithromycin 250 MG Tablet 500 MG PO (21:54)
[2024-05-26] MEDS: Amox/Clavulanate 875 MG Tablet PO (21:54)
[2024-05-26 21:59] LABS: Troponin-I HS 5 pg/mL (3.0-78.0)
== END 2024-05-26 21:57 | disposition home or self-care (01) ==
PROVIDERS: Emergency Provider Emergency Medicine; PCP Internal Medicine; Visit Provider Emergency Medicine
DX: J18.9 Pneumonia, unspecified organism (principal); I25.10 Atherosclerotic heart disease of native coronary artery without angina pectoris; F41.9 Anxiety disorder, unspecified; E03.9 Hypothyroidism, unspecified; Z79.899 Other long term (current) drug therapy; Z87.891 Personal history of nicotine dependence
CPT/HCPCS: 71046; 80048; 80076; 83690; 84484; 85025; 87631; 93005; 96361; 96374; 96376; 99284; J2405

== ENCOUNTER → 2024-07-14 | Outpatient (CLI) | payer BC, SELFPAY ==
--- NOTE | 2024-07-14 16:31 | RAD_ITS ---
EXAM: XR Chest, 2 Views CLINICAL INDICATION: COUGH TECHNIQUE: Frontal and lateral views of the chest. COMPARISON: No relevant prior studies available. FINDINGS: LUNGS AND PLEURAL SPACES: 1.5 cm nodule of the right lower lobe. No consolidation. No pneumothorax. HEART: Unremarkable. No cardiomegaly. MEDIASTINUM: Unremarkable. Normal mediastinal contour. BONES/JOINTS: Unremarkable. No acute fracture. RAD/Chest PA and Lateral IMPRESSION: 1.5 cm nodule of the right lower lobe. Reading Location: [facility]
== END | disposition home or self-care (01) ==
LOC: MTRAD 16:31
PROVIDERS: PCP Internal Medicine; Referring Provider Physician Assistant Surgical; Visit Provider Physician Assistant Surgical
DX: R05.9 Cough, unspecified (principal)
CPT/HCPCS: 71046; 96365; 96366; 96375; 96376

== ENCOUNTER → 2024-07-15 | Outpatient (CLI) | payer BC, SELFPAY ==
[2024-07-15 12:49] LABS: Absolute Lymphocyte Count 2.64 X10^3/uL (0.83-4.51); Absolute Neutrophil Count 12.3 X10^3/uL (2.0-7.7); Basophil% 0.6 % (0-1); Eosinophil# 0.14 X10^3/uL; Eosinophils% 0.8 % (0-5); Hematocrit 43.9 % (40-54); Hemoglobin 14.3 g/dL (13.0-16.5); Lymphocyte # 2.64 X10^3/ul (0.83-4.51); Lymphocyte % 15.8 % (19-41); Mean Corp Hgb Conc 32.6 g/dL (32-36); Mean Corpuscular Hgb 29.9 pg (27.0-32.0); Mean Corpuscular Volume 91.8 fL (80-94); Monocyte# 1.26 X10^3/uL; Monocyte% 7.6 % (0-10); NRBC Flagged by Analyzer 0 % (0-5); Neutrophil # 12.26 X10^3/uL (2.7-7.7); Neutrophil % 73.6 % (47-70); Platelet Count 501 K/mm3 (150-450); RBC Distribution Width CV 12.6 % (11.6-14.6); RBC Distribution Width SD 42.6 fl (35.1-43.9); Red Blood Count 4.78 M/mm3 (4.6-6.2); White Blood Count 16.7 K/mm3 (4.4-11.0)
== END | disposition home or self-care (01) ==
LOC: BIMLAB 08:48
PROVIDERS: PCP Internal Medicine; Referring Provider Internal Medicine; Visit Provider Internal Medicine
DX: E03.9 Hypothyroidism, unspecified (principal)
CPT/HCPCS: 36415; 84443; 85025

== ENCOUNTER → 2024-09-07 | Outpatient (CLI) | payer BC, SELFPAY ==
[2024-09-07 15:28] LABS: Absolute Lymphocyte Count 2.52 X10^3/uL (0.83-4.51); Absolute Neutrophil Count 6.8 X10^3/uL (2.0-7.7); Basophil# 0.06 X10^3/uL; Basophil% 0.6 % (0-1); Eosinophil# 0.24 X10^3/uL; Eosinophils% 2.2 % (0-5); Hemoglobin 13.2 g/dL (13.0-16.5); Lymphocyte # 2.52 X10^3/ul (0.83-4.51); Lymphocyte % 23.6 % (19-41); Mean Corp Hgb Conc 31.4 g/dL (32-36); Mean Corpuscular Volume 92.3 fL (80-94); Mean Platelet Vol. 10.3 fl (6.2-12.0); Monocyte# 1.02 X10^3/uL; Monocyte% 9.6 % (0-10); NRBC Flagged by Analyzer 0 % (0-5); Neutrophil # 6.77 X10^3/uL (2.7-7.7); Neutrophil % 63.4 % (47-70); Platelet Count 329 K/mm3 (150-450); RBC Distribution Width CV 14.1 % (11.6-14.6); RBC Distribution Width SD 47.3 fl (35.1-43.9); Red Blood Count 4.55 M/mm3 (4.6-6.2); White Blood Count 10.7 K/mm3 (4.4-11.0)
== END | disposition home or self-care (01) ==
LOC: BIMLAB 11:55
PROVIDERS: PCP Internal Medicine; Referring Provider Internal Medicine; Visit Provider Internal Medicine
DX: D72.829 Elevated white blood cell count, unspecified (principal); E03.9 Hypothyroidism, unspecified
CPT/HCPCS: 36415; 84443; 85025

== ENCOUNTER → 2025-03-10 | Outpatient (CLI) | payer BC, SELFPAY ==
--- NOTE | 2025-03-10 09:16 | RAD_ITS ---
PROCEDURE: KNEE 3 VIEWS 03/10/2025 REASON FOR EXAM: LEFT KNEE PAIN TECHNIQUE: Procedure Code: RADPAT Modality: DX Procedure: KNEE 3 VIEWS Laterality: Left COMPARISON: None FINDINGS: Bones: There are no fractures or dislocations. Joints: Mild osteoarthritic changes are seen involving the medial femorotibial and patellofemoral joints. Lateral femorotibial joint is well preserved. Effusion: There is no suprapatellar bursa effusion. Soft tissues: There is no soft tissue swelling. Other: There is a 4 mm benign calcification identified posterior to the medial femorotibial joint space RAD/Knee 3 Views IMPRESSION: Mild osteoarthritic changes are seen involving the medial femorotibial and neff llofemoral joints. Reading Location: [id number]
[2025-03-10 12:39] LABS: Hematocrit 43.9 % (40-54); Hemoglobin 14.5 g/dL (13.0-16.5); Immature Granulocytes Count 0.070 X10^3/uL (0.0-0.0); Mean Corp Hgb Conc 33.0 g/dL (32-36); Mean Corpuscular Volume 91.3 fL (80-94); Mean Platelet Vol. 9.7 fl (6.2-12.0); NRBC Flagged by Analyzer 0 % (0-5); Platelet Count 303 K/mm3 (150-450); RBC Distribution Width CV 13.2 % (11.6-14.6); RBC Distribution Width SD 44.5 fl (35.1-43.9); Red Blood Count 4.81 M/mm3 (4.6-6.2); White Blood Count 8.6 K/mm3 (4.4-11.0)
[2025-03-10 12:58] LABS: AST(SGOT) 26 U/L (<=37); Alanine Aminotransfer ALT/SGPT 32 U/L (<=46); Albumin, Serum 4.3 g/dL (3.4-4.8); Alkaline Phosphatase 94 U/L (40-129); Anion Gap 10 (5-15); BUN 14 mg/dL (4-19); BUN/Creat Ratio 17.9 RATIO (10-20); Calcium,Total 9.2 mg/dL (7.6-11.0); Carbon Dioxide 24.4 mmol/L (21.0-32.0); Chloride 105 mmol/L (98-108); Cholesterol 164 mg/dL (<=200); Globulin 3.0 g/dL (2.2-4.2); Glucose 99 mg/dL (70-99); Low Density Lipoprotein Calc. 99 mg/dL; PSA,Total - Annual Screen 0.97 ng/mL (0.02-4.00); Potassium 4.2 mmol/L (3.3-5.1); Triglycerides 122 mg/dL; Very Low Density Lipoprotein 24 mg/dL (5-40); cholesterol:hdl ratio screen 3.79
== END | disposition home or self-care (01) ==
LOC: MTLAB 09:16
PROVIDERS: PCP Internal Medicine; Referring Provider Internal Medicine; Visit Provider Internal Medicine
DX: Z00.00 Encounter for general adult medical examination without abnormal findings (principal); M25.562 Pain in left knee
CPT/HCPCS: 36415; 73562; 80053; 80061; 84153; 84443; 85025; G0103